=== PATIENT | female | born 1950 | race Two or more races ===

== ENCOUNTER → 2020-07-22 09:21 | Outpatient (BNVA) | payer MEDICARE, SELFPAY | PROVIDERS: Visit Provider Urology | DX: N39.41 Urge incontinence (principal); R35.0 Frequency of micturition; N31.8 Other neuromuscular dysfunction of bladder | CPT/HCPCS: 99214 ==

== ENCOUNTER 2020-08-10 06:22 | Day surgery (SDC) | payer MEDICARE, SELFPAY ==
[2020-07-08 09:47] VITALS: BMI 26.9
--- NOTE | 2020-08-09 14:25 | P.CONAN_ITS ---
Documented by User: Camilla Viveros 08/09/20 14:27 HPI - Anesthesia Eval Consult details Narrative: 70yo for Stage 2 interstim Stage 1 interstim 07/13/20 with NATE OLIVO Past Medical History Medical History Anxiety Arthritis Back pain Depression Diabetes Elevated cholesterol GERD (gastroesophageal reflux disease) HTN (hypertension) Osteoarthritis Peptic ulcer Thyroid disease Surgical History Surgical History H/O cataract extraction H/O colonoscopy H/O cystoscopy H/O excision of mass H/O: hysterectomy History of esophagogastroduodenoscopy (EGD) Hx of tonsillectomy Social History Social History Smoking Status: Never smoker Use of substances other than those prescribed or required for medical reasons: N Advance Directives: No Advance Directives Information Provided: No Advance Directives on File: No Recently lost weight without trying: No Meds Allergies Allergy/AdvReac Type Severity Reaction Status Date / Time No Known Allergies Allergy Verified 07/22/20 09:36 Home Medications Medication Instructions Recorded Confirmed Type atenolol 25 mg PO DAILY 07/08/20 07/08/20 History atorvastatin 40 mg PO BEDTIME 07/08/20 07/08/20 History bupropion HCl 150 mg PO BID 07/08/20 07/08/20 History calcium carbonate-vitamin D3 1 tab PO DAILY 07/08/20 07/08/20 History [Calcium + D] clonazepam 1 mg PO BID 07/08/20 07/08/20 History divalproex [Depakote] 250 mg PO BEDTIME 07/08/20 07/08/20 History enalapril maleate 20 mg PO BID 07/08/20 07/08/20 History famotidine 40 mg PO DAILY 07/08/20 07/08/20 History gabapentin 100 mg PO BEDTIME 07/08/20 07/08/20 History levothyroxine 50 mcg PO DAILY 07/08/20 07/08/20 History metformin 250 mg PO DAILY 07/08/20 07/08/20 History naproxen 1,000 mg PO DAILY PRN 07/08/20 07/08/20 History oxybutynin chloride 5 mg PO DAILY 07/08/20 07/08/20 History alcohol swabs pad TOPICAL BID 07/22/20 History blood sugar diagnostic #10 ea 07/22/20 History calcium carbonate-vitamin D3 600 0 tab PO 07/22/20 History mg (1,500 mg)-800 unit tablet lancets 33 gauge #100 ea 07/22/20 History multivitamin-ferrous 1 tab PO QAM 07/22/20 History fumarate-folic acid 18 mg-400 mcg tablet omeprazole 20 mg capsule,delayed 20 mg PO DAILY 07/22/20 History release peg [id number] 1 1 - 2 drp OPHTHALMIC (EYE) Q6H PRN 07/22/20 History %-0.2 %-0.2 % eye drops Exam Exam Date and Time: August 09, 2020 1425 Height,Weight and Vital Signs: Height 5 ft 3 in Weight 69.1 kg Assessment and Plan Assessment Anesthesia Assessment: Chart Reviewed Documented by User: Sydnie Garcia 08/10/20 08:09 [facility] Past Medical History Medical History Anxiety Arthritis Back pain Depression Diabetes Elevated cholesterol GERD (gastroesophageal reflux disease) HTN (hypertension) Osteoarthritis Peptic ulcer Thyroid disease Surgical History Surgical History H/O cataract extraction H/O colonoscopy H/O cystoscopy H/O excision of mass H/O: hysterectomy History of esophagogastroduodenoscopy (EGD) Hx of tonsillectomy Social History Social History Smoking Status: Never smoker Use of substances other than those prescribed or required for medical reasons: N Advance Directives: No Advance Directives Information Provided: No Advance Directives on File: No Recently lost weight without trying: No Meds Allergies Allergy/AdvReac Type Severity Reaction Status Date / Time No Known Allergies Allergy Verified 07/22/20 09:36 Home Medications Medication Instructions Recorded Confirmed Type atenolol 25 mg PO DAILY 07/08/20 07/08/20 History atorvastatin 40 mg PO BEDTIME 07/08/20 07/08/20 History bupropion HCl 150 mg PO BID 07/08/20 07/08/20 History calcium carbonate-vitamin D3 1 tab PO DAILY 07/08/20 07/08/20 History [Calcium + D] clonazepam 1 mg PO BID 07/08/20 07/08/20 History divalproex [Depakote] 250 mg PO BEDTIME 07/08/20 07/08/20 History enalapril maleate 20 mg PO BID 07/08/20 07/08/20 History famotidine 40 mg PO DAILY 07/08/20 07/08/20 History gabapentin 100 mg PO BEDTIME 07/08/20 07/08/20 History levothyroxine 50 mcg PO DAILY 07/08/20 07/08/20 History metformin 250 mg PO DAILY 07/08/20 07/08/20 History naproxen 1,000 mg PO DAILY PRN 07/08/20 07/08/20 History oxybutynin chloride 5 mg PO DAILY 07/08/20 07/08/20 History alcohol swabs pad TOPICAL BID 07/22/20 History blood sugar diagnostic #10 ea 07/22/20 History calcium carbonate-vitamin D3 600 0 tab PO 07/22/20 History mg (1,500 mg)-800 unit tablet lancets 33 gauge #100 ea 07/22/20 History multivitamin-ferrous 1 tab PO QAM 07/22/20 History fumarate-folic acid 18 mg-400 mcg tablet omeprazole 20 mg capsule,delayed 20 mg PO DAILY 07/22/20 History release peg [id number] 1 1 - 2 drp OPHTHALMIC (EYE) Q6H PRN 07/22/20 History %-0.2 %-0.2 % eye drops Exam Airway Mallampati Class: II TM Dist: >3cm Neck ROM: Limited Assessment and Plan Assessment Anesthesia Assessment: Anesthesia Plan Discussed and Chart Reviewed Final Anesthetic Review NPO: Yes ASA Class: II Final Preanesthetic Review: No Changes in Pt Med Stat, Meds/Allgs Chart Reviewed, Consent Obtained/Reviewed and Anes Risks/Benef Reviewed Patient Risk: Low Procedure Risk: Low Assessment/Block/Sedation in SS: Assess/Block/Sedation-SS Anesthetic Plan Anesthetic Plan: MAC: Disposition: Standard PACU
[2020-08-10 07:32] VITALS: BP 151/68; PULSE 70; RESP 20; TEMP 37.3; O2SAT 98
[2020-08-10 07:33] LABS: Glucose, Whole Blood 113 mg/dL (60-115)
[2020-08-10] MEDS: ceFAZolin Sodium/Dextrose,Iso 2 GM/50 ML PIGGYBACK IV (07:36)
[2020-08-10] MEDS: Lactated Ringers 1,000 ML 100 ML IVCONT (07:37)
--- NOTE | 2020-08-10 08:22 | MHC.SHP ---
Pre-Procedural Eval Section A The patient is an INPATIENT: No Changes since office visit: Yes Patient answered all questions; No Cold of Flu in the past 2 weeks, No New Medical Problems and No Changes in Medication Section B Chief Complaint: URGE INCONTINENCE Relevant Family History (Specify if Yes): No Relevant Social History: None Medical History: No relevant PMH History of Previous Operations: No relevant previous surgery (stage 1 interstim) Allergies: Allergies Allergy/AdvReac Type Severity Reaction Status Date / Time No Known Allergies Allergy Verified 07/22/20 09:36 Review of Systems Sugical H&P ROS: Negative: Constitution, Cardiovascular, Respiratory, Neurological, Psychiatric, Hem-Onc, Allergic/Immunologic, Gastrointestinal, Genitourinary, Musculoskeletal, Integumentary, Endocrine and Eyes/Ears/Nose/Throat Exam Surgical H&P Exam: Normal: HEENT, Normal: Heart, Normal: Lungs, Normal: Extremities, Normal: Abdomen, Normal: Skin and Normal: Neurological Plan Diagnosis/Plan: Unchanged (interstim stage 2) Patient has been examined and remains a candidate for the planned procedure
[2020-08-10 09:00] VITALS: BP 151/78; PULSE 64; RESP 16; TEMP 36.5; O2SAT 99
--- NOTE | 2020-08-10 09:00 | PM.OP ---
Brief Operative Note Date of procedure: 08/10/20 Pre-op diagnosis: urge incontinence Post-op diagnosis: same Procedure: interstim stage 2, rechargeable battery Surgeon: Eleazar Patel III, MD Anesthesia: MAC and local Estimated blood loss (mL): 0 Pathology: none sent Condition: stable Disposition: same day
[2020-08-10 09:05] VITALS: BP 137/72; PULSE 63; RESP 17; O2SAT 98
[2020-08-10 09:15] VITALS: BP 139/75; PULSE 60; RESP 17; TEMP 36.3; O2SAT 99
--- NOTE | 2020-08-10 09:39 | HO.POSTANES ---
Post Anesthesia Evaluation Post Anesthesia Evaluation Vital Signs: Vital Signs Temp Pulse Resp BP Pulse Ox 08/10/20 09:15 97.3 F 60 17 139/75 99 08/10/20 09:05 63 17 137/72 98 08/10/20 09:00 97.7 F 64 16 151/78 H 99 08/10/20 07:32 99.1 F 70 20 151/68 H 98 Anesthesia: Monitored Mental Status: Awake Pain Control: Satisfactory Nausea/Vomiting: None Hydration: Adequate Anesthesia-Related Issues: No Anes. Related Issues
== END 2020-08-10 11:40 | disposition home or self-care (01) ==
PROVIDERS: PCP Nurse Practitioner Family; Visit Provider Urology
PROC: (CPT 64590; principal; 2020-08-10 08:30)
DX: N39.41 Urge incontinence (principal); I10 Essential (primary) hypertension; E11.9 Type 2 diabetes mellitus without complications; E78.00 Pure hypercholesterolemia, unspecified; K21.9 Gastro-esophageal reflux disease without esophagitis; Z79.84 Long term (current) use of oral hypoglycemic drugs; Z79.899 Other long term (current) drug therapy
CPT/HCPCS: 64590; 64581; 82947; C1787; J0690; J2405; J3010; J3370

== ENCOUNTER → 2020-10-21 13:01 | Outpatient (BNVA) | payer MEDICARE, SELFPAY | PROVIDERS: PCP Nurse Practitioner Family; Visit Provider Urology | DX: N39.41 Urge incontinence (principal); R35.0 Frequency of micturition; N31.8 Other neuromuscular dysfunction of bladder | CPT/HCPCS: 99212 ==

== ENCOUNTER 2020-10-22 12:39 | Outpatient (REF) | payer MEDICARE, SELFPAY ==
[2020-10-23 11:31] LABS: BV Int Neg Control Negative (Negative)
[2020-10-23 11:32] LABS: BV Int Pos Control Positive (Positive)
== END 2020-10-22 12:40 | disposition home or self-care (01) ==
LOC: HO.LAB 12:39
PROVIDERS: PCP Nurse Practitioner Family; Visit Provider Advanced Practice Midwife
DX: N93.9 Abnormal uterine and vaginal bleeding, unspecified (principal); N76.0 Acute vaginitis; B96.89 Other specified bacterial agents as the cause of diseases classified elsewhere
CPT/HCPCS: 87480; 87510; 87660; 99202

== ENCOUNTER 2020-11-08 09:58 | Outpatient (REF) | payer MEDICARE, SELFPAY ==
--- NOTE | 2020-11-08 10:02 | US_ITS ---
EXAMINATION: US PELVIS CLINICAL INFORMATION: Abnormal uterine vaginal bleeding COMPARISON: Previous exam April 2019 TECHNIQUE: Ultrasound of the pelvis is performed using both transabdominal and transvaginal transducers along with Doppler. Transvaginal imaging is performed due to inadequate visualization transabdominally. FINDINGS: Transabdominal exam is limited. The uterus is tilted to the right and slightly anteverted and anteflexed. The uterus measures 5.6 x 3 x 5.3 cm in sagittal AP and transverse dimension. There is a 2.8 x 2 x 3.4 cm exophytic or subserosal posterior uterine body fibroid with some calcification. This is slightly to the left of midline. This is increased in size from 2.7 x 2.1 x 2.5 cm on previous exam. The endometrium is difficult to visualize due to the orientation of the uterus. Endometrial the endometrium appears thickened for a postmenopausal patient measuring 1.1 cm. The right ovary is not seen. There is a complex cystic lesion in the right adnexa with calcification. This measures 4.3 x 1.9 x 2.6 cm. The left ovary measures 3.4 x 2.2 x 2.7 cm. There is a 1.4 x 0.9 x 1.4 cm simple appearing left ovarian cyst. There is no fluid in the pelvis. US/US pelvic complete IMPRESSION: Limited transabdominal exam. The uterus is tilted to the right. Abnormally thickened endometrium for a postmenopausal patient measuring 1.1 cm. Tissue sampling recommended. Question complex cystic calcified right adnexal lesion measuring 4.3 x 1.9 x 2.6 cm. 1.4 x 0.9 x 1.4 cm cyst in the left ovary.
== END 2020-11-08 09:59 | disposition home or self-care (01) ==
LOC: HO.US 09:58
PROVIDERS: PCP General Practice; Visit Provider Advanced Practice Midwife
DX: N93.9 Abnormal uterine and vaginal bleeding, unspecified (principal); N76.0 Acute vaginitis; B96.89 Other specified bacterial agents as the cause of diseases classified elsewhere
CPT/HCPCS: 76830; 76856

== ENCOUNTER 2020-11-22 12:40 | Outpatient (REF) | payer MEDICARE, SELFPAY | END 2020-11-22 12:41 | disposition home or self-care (01) | LOC: HO.LAB 12:40 | PROVIDERS: Visit Provider Obstetrics & Gynecology | DX: N95.0 Postmenopausal bleeding (principal); N83.291 Other ovarian cyst, right side; D25.9 Leiomyoma of uterus, unspecified | CPT/HCPCS: 58100; 88305; 99212 ==

== ENCOUNTER → 2020-12-01 12:20 | Outpatient (BNVA) | payer MEDICARE, SELFPAY | PROVIDERS: Visit Provider Obstetrics & Gynecology | CPT/HCPCS: Q3014 ==

== ENCOUNTER 2020-12-06 12:59 | Outpatient (REF) | payer MEDICARE, SELFPAY | END 2020-12-06 13:00 | disposition home or self-care (01) | LOC: HO.LAB 12:59 | PROVIDERS: Visit Provider Obstetrics & Gynecology | DX: N95.0 Postmenopausal bleeding (principal) | CPT/HCPCS: 58100; 88305 ==

== ENCOUNTER → 2020-12-20 12:49 | Outpatient (BNVA) | payer MEDICARE, SELFPAY | PROVIDERS: Visit Provider Obstetrics & Gynecology | DX: Z13.89 Encounter for screening for other disorder (principal) | CPT/HCPCS: Q3014 ==

== ENCOUNTER 2021-01-12 14:22 | Outpatient (REF) | payer MEDICARE, SELFPAY ==
[2021-01-13 19:06] LABS: CA-125 7249 U/mL (<35)
== END 2021-01-12 14:23 | disposition home or self-care (01) ==
LOC: HO.LAB 14:22
PROVIDERS: Visit Provider Obstetrics & Gynecology
DX: N83.291 Other ovarian cyst, right side (principal)
CPT/HCPCS: 36415; 86304

== ENCOUNTER → 2021-01-17 11:25 | Outpatient (BNVA) | payer MEDICARE, SELFPAY | PROVIDERS: Visit Provider Obstetrics & Gynecology | CPT/HCPCS: 99212 ==

== ENCOUNTER 2021-01-20 14:19 | Outpatient (REF) | payer MEDICARE, SELFPAY ==
[2021-01-20 15:26] LABS: Blood Urea Nitrogen 18 mg/dL (9-16)
== END 2021-01-20 14:20 | disposition home or self-care (01) ==
LOC: HO.LAB 14:19
PROVIDERS: PCP Internal Medicine; Visit Provider Obstetrics & Gynecology
DX: N83.291 Other ovarian cyst, right side (principal)
CPT/HCPCS: 36415; 82550; 84520

== ENCOUNTER 2021-01-21 12:30 | Outpatient (REF) | payer MEDICARE, SELFPAY ==
--- NOTE | ~2021-01-21 | CT_ITS ---
EXAMINATION: CT ABDOMEN AND PELVIS WITHOUT CONTRAST CLINICAL INFORMATION: Right ovarian cyst COMPARISON: Previous pelvic ultrasound most recent October 2020 TECHNIQUE: Multidetector volumetric imaging was performed from the superior aspect of the liver through the pubic symphysis. Sagittal and coronal reformatted images were obtained on the technologist's workstation. This CT examination was performed using dose optimization techniques as appropriate, variously including the following: *Automated exposure control *Adjustment of mA and/or kV according to patient size (this includes techniques or standardized protocols for targeted exams where dose is matched to indication/reason for exam; i.e. extremities or head) *Use of iterative reconstruction technique DLP: 523 mGy-cm FINDINGS: LUNG BASES: The visualized lung bases are unremarkable. LIVER, GALLBLADDER, AND BILIARY TREE: The liver is normal in size, shape, and attenuation. No focal hepatic lesion or biliary ductal dilatation is present. The gallbladder is unremarkable with no evidence of radiopaque gallstones, gallbladder wall thickening, or obvious pericholecystic inflammatory changes. PANCREAS: Unremarkable. SPLEEN: Unremarkable. ADRENAL GLANDS: Unremarkable. KIDNEYS AND URETERS: The kidneys are normal in size, shape, and attenuation. No hydronephrosis, hydroureter, or calculi seen. No perinephric stranding. BLADDER: The bladder is not distended and not evaluated. GASTROINTESTINAL TRACT: There is diverticulosis of the colon. The sigmoid colon abuts the pelvic mass and there is not a clear soft tissue plane structures.. There are no dilated loops of bowel to suggest obstruction.. The appendix is unremarkable. ABDOMINAL WALL: No significant hernia is appreciated. LYMPH NODES: Normal. VASCULAR: Unremarkable. PELVIC VISCERA: The uterus is difficult to delineate from the ovaries. There appear to be bilateral partially calcified adnexal masses for example measuring 3.2 x 4.8 cm on the left and 5.8 x 4.6 cm on the right axial image 71 series 3. There are innumerable peritoneal soft tissue masses suggestive of peritoneal carcinomatosis. The largest is just deep to the right abdominal wall muscles and may be in the greater omentum. This measures 2.6 x 1.8 cm axial image 63 series 3. There is a small amount of in the pelvis. OSSEOUS STRUCTURES: There are degenerative changes of the spine. There is a small nonspecific sclerotic lesion in the T10 vertebral body. There are degenerative disc changes at the L2-L3. There is arthritis at both hip joints. There is a right sacral stimulator with lead projecting over the fat just anterior to the right piriformis muscle. CT/CT abdomen pelvis wo con IMPRESSION: Uterus is difficult to delineate from the ovaries. Soft tissue mass in the pelvis, question representing bilateral partially calcified adnexal masses. Innumerable peritoneal soft tissue masses suggestive of peritoneal carcinomatosis. Small amount of ascites. Sigmoid colon abuts the pelvic mass. No evidence of obstruction.
== END 2021-01-21 12:31 | disposition home or self-care (01) ==
LOC: HO.CT 12:30
PROVIDERS: PCP Internal Medicine; Visit Provider Obstetrics & Gynecology
DX: N83.291 Other ovarian cyst, right side (principal)
CPT/HCPCS: 74176

== ENCOUNTER 2021-02-16 10:39 | Outpatient (REF) | payer MEDICARE, SELFPAY ==
[2021-02-16 11:21] LABS: COVID-19 Test Negative (Negative); IDNOW Serial# 55D5AD1C
== END 2021-02-16 10:40 | disposition home or self-care (01) ==
LOC: HO.LAB 10:39
PROVIDERS: Visit Provider Internal Medicine
DX: Z20.822 Contact with and (suspected) exposure to COVID-19 (principal)
CPT/HCPCS: 36415; 87635; C9803

== ENCOUNTER 2021-03-02 09:28 | Outpatient (REF) | payer MEDICARE, SELFPAY ==
[2021-03-02 10:20] LABS: MANUAL DIFF FLAG NO
[2021-03-02 10:39] LABS: Basophils Percent Auto 0.4 % (0-2); Eosinophils Absolute Auto 0.1 X10*3/uL (0.0-0.4); Hematocrit 35.2 % (37-47); Hemoglobin 11.4 g/dl (12.0-16.0); Imm Gran Abs Auto 0.03 X10*3/uL (0.00-0.03); Imm Gran Pct Auto 0.4 % (0.0-0.4); Lymphocytes Absolute Auto 1.3 X10*3/uL (1.2-4.9); Lymphocytes Percent Auto 18.8 % (20-40); Mean Corpuscular HGB Conc 32.4 g/dl (31.0-35.0); Mean Corpuscular Hemoglobin 29.8 pg (27.0-33.0); Mean Corpuscular Volume 91.9 fL (80-98); Mean Platelet Volume 10.3 fL (9.4-12.3); Monocytes Absolute Auto 0.5 X10*3/uL (0.1-1.2); Monocytes Percent Auto 6.7 % (2-11); Neutrophils Absolute Auto 4.9 X10*3/uL (2.0-8.3); Neutrophils Percent Auto 72.7 % (45-73); Platelet Count 339 X10*3/uL (160-400); Red Blood Count 3.83 X10*6/uL (4.20-5.50); Red Cell Distribution Width 12.9 % (11.0-16.0); White Blood Count 6.7 X10*3/uL (4.8-10.8)
[2021-03-02 10:55] LABS: Magnesium 2.3 mg/dL (1.6-2.6)
[2021-03-02 11:09] LABS: HBS Num1 0.31 mIU/mL (0-7.99); HBc Num1 0.06 S/CO (0.00-0.79); Hepatitis B Core Antibody Nonreactive (Nonreactive); ~Hepatitis B Surface Antibody NONREACTIVE (Nonreactive)
[2021-03-02 16:09] LABS: Alanine Aminotransferase 16 U/L (0-31); Albumin Level 4.2 g/dL (3.5-5.0); Alkaline Phosphatase 145 U/L (39-117); Anion Gap 14 (12-20); Aspartate Amino Transferase 18 U/L (5-31); Bilirubin Total 0.5 mg/dL (0.0-1.0); Blood Urea Nitrogen 14 mg/dL (9-16); Carbon Dioxide 27 mmol/L (22-29); Chloride 104 mmol/L (96-108); Estimated Glomerular Filt Rate > 60; Glucose Random 109 mg/dL (60-115); Potassium 4.9 mmol/L (3.3-5.1); Sodium 140 mmol/L (135-145); Total Protein 7.2 g/dL (6.5-8.0)
[2021-03-03 11:07] LABS: CA-125 10855 U/mL (<35)
== END 2021-03-02 09:29 | disposition home or self-care (01) ==
LOC: HO.LAB 09:28
PROVIDERS: Visit Provider Obstetrics & Gynecology Gynecologic Oncology
DX: C54.1 Malignant neoplasm of endometrium (principal)
CPT/HCPCS: 36415; 80053; 83735; 84100; 85025; 86304; 86704; 86706

== ENCOUNTER 2021-03-23 09:20 | Outpatient (REF) | payer MEDICARE, SELFPAY ==
[2021-03-23 10:05] LABS: MANUAL DIFF FLAG NO
[2021-03-23 10:13] LABS: Basophils Percent Auto 0.2 % (0-2); Eosinophils Percent Auto 0.5 % (0-4); Hematocrit 34.6 % (37-47); Hemoglobin 11.2 g/dl (12.0-16.0); Imm Gran Abs Auto 0.03 X10*3/uL (0.00-0.03); Imm Gran Pct Auto 0.5 % (0.0-0.4); Lymphocytes Absolute Auto 1.6 X10*3/uL (1.2-4.9); Lymphocytes Percent Auto 28.3 % (20-40); Mean Corpuscular HGB Conc 32.4 g/dl (31.0-35.0); Mean Corpuscular Hemoglobin 29.7 pg (27.0-33.0); Mean Corpuscular Volume 91.8 fL (80-98); Monocytes Absolute Auto 0.5 X10*3/uL (0.1-1.2); Monocytes Percent Auto 8.6 % (2-11); Neutrophils Absolute Auto 3.5 X10*3/uL (2.0-8.3); Neutrophils Percent Auto 61.9 % (45-73); Platelet Count 230 X10*3/uL (160-400); Red Blood Count 3.77 X10*6/uL (4.20-5.50); Red Cell Distribution Width 14.3 % (11.0-16.0); White Blood Count 5.6 X10*3/uL (4.8-10.8)
[2021-03-23 10:38] LABS: Alanine Aminotransferase 25 U/L (0-31); Albumin Level 4.2 g/dL (3.5-5.0); Alkaline Phosphatase 115 U/L (39-117); Anion Gap 11 (12-20); Aspartate Amino Transferase 20 U/L (5-31); Bilirubin Total 0.2 mg/dL (0.0-1.0); Blood Urea Nitrogen 15 mg/dL (9-16); Calcium 9.8 mg/dL (8.4-10.2); Carbon Dioxide 27 mmol/L (22-29); Chloride 108 mmol/L (96-108); Estimated Glomerular Filt Rate > 60; Glucose Random 109 mg/dL (60-115); Phosphorus 3.7 mg/dL (2.7-4.5); Potassium 4.8 mmol/L (3.3-5.1); Sodium 141 mmol/L (135-145)
[2021-03-24 17:12] LABS: CA-125 9082 U/mL (<35)
== END 2021-03-23 09:21 | disposition home or self-care (01) ==
LOC: HO.LAB 09:20
PROVIDERS: Visit Provider Obstetrics & Gynecology Gynecologic Oncology
DX: C55 Malignant neoplasm of uterus, part unspecified (principal)
CPT/HCPCS: 36415; 80053; 83735; 84100; 85025; 86304

== ENCOUNTER 2021-04-13 07:39 | Outpatient (REF) | payer MEDICARE, SELFPAY ==
[2021-04-13 08:45] LABS: MANUAL DIFF FLAG NO
[2021-04-13 08:50] LABS: Basophils Percent Auto 0.2 % (0-2); Eosinophils Percent Auto 0.7 % (0-4); Hematocrit 32.6 % (37-47); Hemoglobin 10.7 g/dl (12.0-16.0); Imm Gran Abs Auto 0.02 X10*3/uL (0.00-0.03); Imm Gran Pct Auto 0.4 % (0.0-0.4); Lymphocytes Absolute Auto 1.8 X10*3/uL (1.2-4.9); Mean Corpuscular HGB Conc 32.8 g/dl (31.0-35.0); Mean Corpuscular Hemoglobin 30.1 pg (27.0-33.0); Mean Corpuscular Volume 91.8 fL (80-98); Mean Platelet Volume 9.9 fL (9.4-12.3); Monocytes Absolute Auto 0.5 X10*3/uL (0.1-1.2); Monocytes Percent Auto 11.7 % (2-11); Neutrophils Absolute Auto 2.3 X10*3/uL (2.0-8.3); Platelet Count 204 X10*3/uL (160-400); Red Blood Count 3.55 X10*6/uL (4.20-5.50); Red Cell Distribution Width 15.6 % (11.0-16.0); White Blood Count 4.6 X10*3/uL (4.8-10.8)
[2021-04-13 09:21] LABS: Alanine Aminotransferase 12 U/L (0-31); Albumin Level 4.2 g/dL (3.5-5.0); Alkaline Phosphatase 82 U/L (39-117); Anion Gap 12 (12-20); Aspartate Amino Transferase 12 U/L (5-31); Bilirubin Total 0.3 mg/dL (0.0-1.0); Blood Urea Nitrogen 13 mg/dL (9-16); Calcium 9.9 mg/dL (8.4-10.2); Carbon Dioxide 26 mmol/L (22-29); Chloride 109 mmol/L (96-108); Estimated Glomerular Filt Rate > 60; Glucose Random 97 mg/dL (60-115); Magnesium 2.1 mg/dL (1.6-2.6); Phosphorus 4.1 mg/dL (2.7-4.5); Potassium 4.7 mmol/L (3.3-5.1); Sodium 142 mmol/L (135-145); Total Protein 7.1 g/dL (6.5-8.0)
[2021-04-14 06:42] LABS: CA-125 998 U/mL (<35)
== END 2021-04-13 07:40 | disposition home or self-care (01) ==
LOC: HO.LABR 07:39
PROVIDERS: Visit Provider Obstetrics & Gynecology Gynecologic Oncology
DX: C55 Malignant neoplasm of uterus, part unspecified (principal)
CPT/HCPCS: 36415; 80053; 83735; 84100; 85025; 86304

== ENCOUNTER 2021-07-23 12:15 | Inpatient (IN) | payer MEDICARE, SELFPAY ==
--- NOTE | ~2021-07-23 | CT_ITS ---
EXAMINATION: CT ABDOMEN AND PELVIS WITHOUT CONTRAST CLINICAL INFORMATION: Colitis. COMPARISON: 01/21/2021 TECHNIQUE: Multidetector volumetric imaging was performed from the superior aspect of the liver through the pubic symphysis. Sagittal and coronal reformatted images were obtained on the technologist's workstation. This CT examination was performed using dose optimization techniques as appropriate, variously including the following: *Automated exposure control *Adjustment of mA and/or kV according to patient size (this includes techniques or standardized protocols for targeted exams where dose is matched to indication/reason for exam; i.e. extremities or head) *Use of iterative reconstruction technique DLP: 504 mGy-cm FINDINGS: LUNG BASES: The visualized lung bases are unremarkable. LIVER, GALLBLADDER, AND BILIARY TREE: Motion limits evaluation. The liver is normal in size, shape, and attenuation. No focal hepatic lesion or biliary ductal dilatation is present. The gallbladder is unremarkable with no evidence of radiopaque gallstones, gallbladder wall thickening, or obvious pericholecystic inflammatory changes. PANCREAS: Unremarkable. SPLEEN: Unremarkable. ADRENAL GLANDS: Unremarkable. KIDNEYS AND URETERS: The kidneys are normal in size, shape, and attenuation. No hydronephrosis, hydroureter, or calculi seen. No perinephric stranding. BLADDER: Unremarkable. GASTROINTESTINAL TRACT: The stomach is unremarkable. Normal caliber small bowel. No obstruction. There is wall thickening with significant adjacent inflammation involving the descending colon and sigmoid colon. No free air. Small amount of free fluid. ABDOMINAL WALL: No significant hernia is appreciated. LYMPH NODES: Normal. VASCULAR: Unremarkable. PELVIC VISCERA: Uterus is not seen. No adnexal mass. OSSEOUS STRUCTURES: No acute or suspicious osseous abnormality. Degenerative changes of the spine. Mild degenerative change of the left hip. Moderate to severe degenerative change of the right hip. CT/CT abdomen pelvis wo con IMPRESSION: Colitis involving the descending and sigmoid colon. This is of uncertain etiology, favoring infectious or inflammatory.
[2021-07-23 13:53] VITALS: BP 171/81; PULSE 70; RESP 18; TEMP 36.9; O2SAT 99; BMI 28.8
--- NOTE | 2021-07-23 14:08 | ED.GENADULT ---
HPI - General Adult General Chief complaint: General Medical Stated complaint: rectal bleeding Time Seen by Provider: 07/23/21 13:39 Source: patient Mode of arrival: ambulatory Limitations: no limitations History of Present Illness HPI narrative: 71-year-old female who presents emergency department for evaluation of rectal bleeding. 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 She started chemotherapy on 07/14/2021. She states that last night she noted rectal bleeding. She states that the blood is bright red and mainly on the toilet paper but she did notice some blood in the toilet bowl. She states she has a history of hemorrhoids but has not been straining at the stool. Since her surgery she has been on a liquid diet. She states she has had formed stool with no dark black Rytary stool. The patient states that she does have abdominal pain and she states that she has had this pain since her surgery. She points to her epigastric area and to her umbilical area when asked to localize the pain, the pain is a constant dull ache which is 5/10 at its worst. She denied nausea or vomiting. She denied fever or chills. She states that she is feeling weak but she denied lightheadedness or dizziness. Chemical logically oncology note dated 06/23/2021 obtain from [facility]. The patient has serous carcinoma of primary peritoneum, high grade. The patient had 4 cycles of adjuvant therapy and with extensive surgery (total abdominal hysterectomy, bilateral salpingo-oophorectomy, omentectomy, appendectomy, tumor debulking and rigid proctoscopy done on 06/13/[address] Ellis. Note states that the discuss taking Lovenox for 28 days Related Data Home Medications Medication Instructions Recorded Confirmed atenolol 25 mg tablet 25 mg PO DAILY 07/08/20 12/20/20 atorvastatin 40 mg tablet 40 mg PO BEDTIME 07/08/20 12/20/20 bupropion HCl 150 mg tablet,12 hr 150 mg PO BID 07/08/20 12/20/20 sustained-release calcium carbonate 600 mg (1,500 1 tab PO DAILY 07/08/20 12/20/20 mg)-vitamin D3 200 unit tablet clonazepam 1 mg tablet 1 mg PO BID 07/08/20 12/20/20 divalproex 250 mg tablet,delayed 250 mg PO BEDTIME 07/08/20 12/20/20 release (Depakote) enalapril maleate 20 mg tablet 20 mg PO BID 07/08/20 12/20/20 famotidine 40 mg tablet 40 mg PO DAILY 07/08/20 12/20/20 gabapentin 100 mg tablet 100 mg PO BEDTIME 07/08/20 12/20/20 levothyroxine 50 mcg tablet 50 mcg PO DAILY 07/08/20 12/20/20 metformin 500 mg tablet 250 mg PO DAILY 07/08/20 12/20/20 naproxen 500 mg tablet 1,000 mg PO DAILY PRN 07/08/20 12/20/20 oxybutynin chloride 5 mg tablet 5 mg PO DAILY 07/08/20 12/20/20 alcohol swabs pad TOPICAL BID 07/22/20 12/20/20 blood sugar diagnostic #10 ea 07/22/20 12/20/20 calcium carbonate-vitamin D3 600 0 tab PO 07/22/20 12/20/20 mg (1,500 mg)-800 unit tablet lancets 33 gauge #100 ea 07/22/20 12/20/20 multivitamin-ferrous 1 tab PO QAM 07/22/20 12/20/20 fumarate-folic acid 18 mg-400 mcg tablet omeprazole 20 mg capsule,delayed 20 mg PO DAILY 07/22/20 12/20/20 release peg 505-[id number] 1 1 - 2 drp OPHTHALMIC (EYE) Q6H PRN 07/22/20 12/20/20 %-0.2 %-0.2 % eye drops Previous Rx's Medication Instructions Recorded metronidazole 0.75 % vaginal gel 1 appful VAGINAL BID 5 Days #70 g 10/22/20 (Metrogel Vaginal) Allergies Allergy/AdvReac Type Severity Reaction Status Date / Time No Known Allergies Allergy Verified 07/23/21 13:53 Review of Systems Review of Systems: Yes all other systems are reviewed and are negative [facility] Past Medical History [facility] Narrative: Past medical history: Diabetes mellitus, hypertension, hyperlipidemia, hypothyroidism, 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 Past surgical history: Total hysterectomy with tumor debulking 06/13/2021 done at [facility]. Patient has also had spinal surgery and a bladder stimulator. Social history: She denies tobacco and alcohol use. She denies drug use. Medical History Acute hemorrhoid Anxiety Arthritis Back pain Depression Diabetes Elevated cholesterol GERD (gastroesophageal reflux disease) HTN (hypertension) Osteoarthritis Peptic ulcer Thyroid disease Surgical History H/O cataract extraction H/O colonoscopy H/O cystoscopy H/O excision of mass H/O: hysterectomy History of esophagogastroduodenoscopy (EGD) Hx of tonsillectomy Previous back surgery Family History Family History Mother HTN (hypertension) Diabetes Father HTN (hypertension) Sister Diabetes Social History Social History Alcohol intake: never Patient Tobacco Use Status: Never used Tobacco Use of substances other than those prescribed or required for medical reasons: No Advance Directives: No Gender identity: Female Physical Exam Vital Signs: Vital Signs: Last Vital Signs Temp 98.5 F 07/23/21 13:53 Pulse 70 07/23/21 13:53 Resp 18 07/23/21 13:53 BP 171/81 H 07/23/21 13:53 Pulse Ox 99 07/23/21 13:53 Body Mass Index 28.8 Const: General: cooperative and no acute distress Orientation/consciousness: oriented to person and oriented to place Limitations: no limitations HENMT: Head: Yes normal to inspection, Yes normocephalic and Yes atraumatic Ears: external ears normal General nose exam: Normal external nose present Face and sinus: Yes normal facial exam Mouth: Normal oral and palatal mucosa present Throat: Yes posterior oropharynx normal Eyes: General: appearance normal, both eyes and all related structures Pupils: Equal, round and reactive pupils present Neck: Neck: Yes normal visual inspection, Yes no lymphadenopathy, Yes trachea midline and Yes supple Chest: Chest palpation & inspection: normal inspection of the chest and normal palpation of entire chest wall Resp: Effort & Inspection: normal respiratory effort and able to speak in complete sentences Auscultation: clear to auscultation bilaterally Cardio: Rate: regular rate Rhythm: regular rhythm Heart sounds: S1 normal heart sound present, S2 normal heart sound present and no murmurs GI: Inspection: Yes normal to inspection Palpation (GI): Soft to palpation, nontender, no guarding and Other GI palpation findings present (Midline abdominal scar is healed well) Auscultation: normal bowel sounds Rectal Exam - Female: visual inspection normal, normal sphincter tone, No hemorrhoids and other (Red blood per rectum, strongly Hemoccult positive) : General: Yes no CVA tenderness Back/Spine/Pelvis: Back: no CVA tenderness Skin: General skin exam: no rashes or lesions noted Neuro: General: oriented to person and oriented to place Cranial nerves: Yes CN's II-XII intact bilaterally and Yes Equal, round and reactive pupils present Cognition (Neuro): normal cognition Motor exam (neuro): 5/5 motor strength present throughout Extrem: General: Yes normal to inspection Psych: Appearance: grossly normal Speech and movement: Normal speech and movement present Affect: normal affect Attitude: cooperative Thought process: Normal thought process present Thought content: Normal thought content present Course Course Course Narrative: 71-year-old female who presents emergency department for evaluation of bright red blood per rectum which began last night. 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 Patient does report a history of hemorrhoids. Patient's vital signs were stable. Abdominal exam revealed no tenderness. Rectal examination revealed no external hemorrhoids but she does have bright red blood per rectum on digital exam. I will obtain records from [facility] to clarify her cancer diagnosis and her chemotherapy regimen. I did order CBC, CMP, PT/INR, PTT, type and screen. Patient was ordered to get normal saline x1 L. 1736: The patient's laboratory evaluation [place] [address]. Patient was anemic with an H&H of 10.8 and 31. This is compared to an H&H of 10 and 32.6 on 04/13/2021, 11.2 and 34.6 on 03/23/2021 and 11.4 and 35.2 on 03/02/2021. Patient did receive chemotherapy 9 days prior. The patient is also taking Lovenox subQ. The rest of the patient's laboratory evaluation was unremarkable. At this time, concerned that the patient has a lower GI bleed, this could be secondary to hemorrhoids however since she is on Lovenox she is at increased risk of severe bleeding. I will discuss treatment and possible admission with the covering receptionist doctor's office. 1806: I did discuss the patient's presentation with the covering receptionist doctor's office, Dr. Ruano. She agreed that the patient should be kept for observation to follow her H&H especially since the patient is receiving Lovenox. She recommended that the patient's Lovenox be stopped. She states that the patient can eat however she would stop feeding the patient if the patient had increased bleeding. I will discuss the patient's presentation with the covering hospitalist. 2116: The patient's repeat H&H at 6:33 p.m. did reveal a decrease from 10.8/31.4 to 10.0/28.7. I did discuss this with the hospitalist. The patient appears stable and unchanged. Medical Decision Making Lab Data Result diagrams: 07/23/21 18:33 07/23/21 14:52 Labs: Lab Results 07/23/21 07/23/21 07/23/21 Range/Units 14:40 14:40 14:50 WBC 16.1 H (4.8-10.8) X10*3/uL RBC 3.30 L (4.20-5.50) X10*6/uL Hgb 10.8 L (12.0-16.0) g/dl Hct 31.4 L (37-47) % MCV 95.2 (80-98) fL MCH 32.7 (27.0-33.0) pg MCHC 34.4 (31.0-35.0) g/dl RDW 12.7 (11.0-16.0) % Plt Count 208 (160-400) X10*3/uL MPV 10.6 (9.4-12.3) fL Immature Gran % (Auto) 0.4 (0.0-0.4) % Neut % (Auto) 90.5 H (45-73) % Lymph % (Auto) 5.3 L (20-40) % Worth % (Auto) 3.6 (2-11) % Eos % (Auto) 0.1 (0-4) % Baso % (Auto) 0.1 (0-2) % Lymph # (Auto) 0.9 L (1.2-4.9) X10*3/uL Worth # (Auto) 0.6 (0.1-1.2) X10*3/uL Eos # (Auto) 0.0 (0.0-0.4) X10*3/uL Baso # (Auto) 0.0 (0.0-0.2) X10*3/uL Abs Immat Gran (auto) 0.06 H (0.00-0.03) X10*3/uL Absolute Neuts (auto) 14.6 H (2.0-8.3) X10*3/uL Absolute Nucleated RBC 0.000 (0.0-0.012) X10*3/uL Nucleated RBC % (auto) 0.0 (0.0-0.2) /100WBC Smear Tech's Comments VERIFIED PT 12.8 (9.9-13.0) SEC INR 1.1 (0.9-1.1) APTT 25.9 (24.1-38.0) SEC Sodium (135-145) mmol/L Potassium (3.3-5.1) mmol/L Chloride (96-108) mmol/L Carbon Dioxide (22-29) mmol/L Anion Gap (12-20) BUN (9-16) mg/dL Creatinine (0.5-1.4) mg/dL Estim Creat Clear Calc Estimated GFR Random Glucose (60-115) mg/dL Calcium (8.4-10.2) mg/dL Total Bilirubin (0.0-1.0) mg/dL AST (5-31) U/L ALT (0-31) U/L Alkaline Phosphatase (39-117) U/L Total Protein (6.5-8.0) g/dL Albumin (3.5-5.0) g/dL Urine Color Urine Appearance Urine pH (5.0-8.0) Ur Specific Townsend (1.005-1.025) Urine Protein (NEG-TRACE) MG/DL Urine Glucose (UA) (NEG) MG/DL Urine Ketones (NEG) MG/DL Urine Blood (NEG) Urine Nitrite (NEG) Ur Leukocyte Esterase (NEG) Urine RBC (0) /HPF Urine WBC (0-4) /HPF Ur Squamous Epith Cells /LPF Urine Bacteria /LPF Hyaline Casts /LPF Urine Mucus /LPF Stool Occult Blood (NEGATIVE) Blood Type A Positive Antibody Screen NEGATIVE 07/23/21 07/23/21 07/23/21 Range/Units 14:52 15:40 15:40 WBC (4.8-10.8) X10*3/uL RBC (4.20-5.50) X10*6/uL Hgb (12.0-16.0) g/dl Hct (37-47) % MCV (80-98) fL MCH (27.0-33.0) pg MCHC (31.0-35.0) g/dl RDW (11.0-16.0) % Plt Count (160-400) X10*3/uL MPV (9.4-12.3) fL Immature Gran % (Auto) (0.0-0.4) % Neut % (Auto) (45-73) % Lymph % (Auto) (20-40) % Worth % (Auto) (2-11) % Eos % (Auto) (0-4) % Baso % (Auto) (0-2) % Lymph # (Auto) (1.2-4.9) X10*3/uL Worth # (Auto) (0.1-1.2) X10*3/uL Eos # (Auto) (0.0-0.4) X10*3/uL Baso # (Auto) (0.0-0.2) X10*3/uL Abs Immat Gran (auto) (0.00-0.03) X10*3/uL Absolute Neuts (auto) (2.0-8.3) X10*3/uL Absolute Nucleated RBC (0.0-0.012) X10*3/uL Nucleated RBC % (auto) (0.0-0.2) /100WBC Smear Tech's Comments PT (9.9-13.0) SEC INR (0.9-1.1) APTT (24.1-38.0) SEC Sodium 141 (135-145) mmol/L Potassium 4.0 (3.3-5.1) mmol/L Chloride 109 H (96-108) mmol/L Carbon Dioxide 20 L (22-29) mmol/L Anion Gap 16 (12-20) BUN 18 H (9-16) mg/dL Creatinine 0.77 (0.5-1.4) mg/dL Estim Creat Clear Calc 60.5 Estimated GFR > 60 Random Glucose 135 H (60-115) mg/dL Calcium 8.9 D (8.4-10.2) mg/dL Total Bilirubin 0.9 (0.0-1.0) mg/dL AST 12 (5-31) U/L ALT 10 (0-31) U/L Alkaline Phosphatase 64 D (39-117) U/L Total Protein 6.7 (6.5-8.0) g/dL Albumin 4.1 (3.5-5.0) g/dL Urine Color YELLOW Urine Appearance CLEAR Urine pH 6.0 (5.0-8.0) Ur Specific Townsend >= 1.030 H (1.005-1.025) Urine Protein 1+ H (NEG-TRACE) MG/DL Urine Glucose (UA) NEG (NEG) MG/DL Urine Ketones NEG (NEG) MG/DL Urine Blood 1+ H (NEG) Urine Nitrite NEG (NEG) Ur Leukocyte Esterase NEG (NEG) Urine RBC 1-4 (0) /HPF Urine WBC 0-2 (0-4) /HPF Ur Squamous Epith Cells 2+ /LPF Urine Bacteria 1+ /LPF Hyaline Casts 0-2 /LPF Urine Mucus 2+ /LPF Stool Occult Blood POSITIVE (NEGATIVE) Blood Type Antibody Screen 07/23/21 Range/Units 18:33 WBC (4.8-10.8) X10*3/uL RBC (4.20-5.50) X10*6/uL Hgb 10.0 L (12.0-16.0) g/dl Hct 28.7 L (37-47) % MCV (80-98) fL MCH (27.0-33.0) pg MCHC (31.0-35.0) g/dl RDW (11.0-16.0) % Plt Count (160-400) X10*3/uL MPV (9.4-12.3) fL Immature Gran % (Auto) (0.0-0.4) % Neut % (Auto) (45-73) % Lymph % (Auto) (20-40) % Worth % (Auto) (2-11) % Eos % (Auto) (0-4) % Baso % (Auto) (0-2) % Lymph # (Auto) (1.2-4.9) X10*3/uL Worth # (Auto) (0.1-1.2) X10*3/uL Eos # (Auto) (0.0-0.4) X10*3/uL Baso # (Auto) (0.0-0.2) X10*3/uL Abs Immat Gran (auto) (0.00-0.03) X10*3/uL Absolute Neuts (auto) (2.0-8.3) X10*3/uL Absolute Nucleated RBC (0.0-0.012) X10*3/uL Nucleated RBC % (auto) (0.0-0.2) /100WBC Smear Tech's Comments PT (9.9-13.0) SEC INR (0.9-1.1) APTT (24.1-38.0) SEC Sodium (135-145) mmol/L Potassium (3.3-5.1) mmol/L Chloride (96-108) mmol/L Carbon Dioxide (22-29) mmol/L Anion Gap (12-20) BUN (9-16) mg/dL Creatinine (0.5-1.4) mg/dL Estim Creat Clear Calc Estimated GFR Random Glucose (60-115) mg/dL Calcium (8.4-10.2) mg/dL Total Bilirubin (0.0-1.0) mg/dL AST (5-31) U/L ALT (0-31) U/L Alkaline Phosphatase (39-117) U/L Total Protein (6.5-8.0) g/dL Albumin (3.5-5.0) g/dL Urine Color Urine Appearance Urine pH (5.0-8.0) Ur Specific Townsend (1.005-1.025) Urine Protein (NEG-TRACE) MG/DL Urine Glucose (UA) (NEG) MG/DL Urine Ketones (NEG) MG/DL Urine Blood (NEG) Urine Nitrite (NEG) Ur Leukocyte Esterase (NEG) Urine RBC (0) /HPF Urine WBC (0-4) /HPF Ur Squamous Epith Cells /LPF Urine Bacteria /LPF Hyaline Casts /LPF Urine Mucus /LPF Stool Occult Blood (NEGATIVE) Blood Type Antibody Screen Discharge Plan Discharge Clinical Impression: Acute lower gastrointestinal bleeding, Anemia Patient Disposition: Admitted As Inpatient
[2021-07-23] MEDS: 0.9 % Sodium Chloride 1,000 ML 999 ML IV (14:41)
[2021-07-23 14:46] LABS: Basophils Percent Auto 0.1 % (0-2); Eosinophils Percent Auto 0.1 % (0-4); Hematocrit 31.4 % (37-47); Hemoglobin 10.8 g/dl (12.0-16.0); Imm Gran Abs Auto 0.06 X10*3/uL (0.00-0.03); Imm Gran Pct Auto 0.4 % (0.0-0.4); Lymphocytes Absolute Auto 0.9 X10*3/uL (1.2-4.9); Lymphocytes Percent Auto 5.3 % (20-40); MANUAL DIFF FLAG SCAN; Mean Corpuscular HGB Conc 34.4 g/dl (31.0-35.0); Mean Corpuscular Hemoglobin 32.7 pg (27.0-33.0); Mean Corpuscular Volume 95.2 fL (80-98); Mean Platelet Volume 10.6 fL (9.4-12.3); Monocytes Absolute Auto 0.6 X10*3/uL (0.1-1.2); Monocytes Percent Auto 3.6 % (2-11); Neutrophils Absolute Auto 14.6 X10*3/uL (2.0-8.3); Neutrophils Percent Auto 90.5 % (45-73); Platelet Count 208 X10*3/uL (160-400); Red Cell Distribution Width 12.7 % (11.0-16.0); SCAN SMEAR FLAG 1; White Blood Count 16.1 X10*3/uL (4.8-10.8)
--- NOTE | 2021-07-23 14:49 | PC.NURSE ---
iv inserted, labs drawn, rectal exam performed by provider, pt ambulated independently to bathroom- steady gait, urine obtained, ivf running per order, vss, family at bedside, will continue to monitor.
[2021-07-23 14:52] LABS: INTERNATIONAL NORM RATIO 1.1 (0.9-1.1); Prothrombin Time 12.8 SEC (9.9-13.0)
[2021-07-23 14:55] LABS: Partial Thromboplastin Time 25.9 SEC (24.1-38.0)
[2021-07-23 15:03] LABS: SLIDE REVIEW VERIFIED
[2021-07-23 15:11] LABS: Alanine Aminotransferase 10 U/L (0-31); Albumin Level 4.1 g/dL (3.5-5.0); Alkaline Phosphatase 64 U/L (39-117); Anion Gap 16 (12-20); Aspartate Amino Transferase 12 U/L (5-31); Bilirubin Total 0.9 mg/dL (0.0-1.0); Blood Urea Nitrogen 18 mg/dL (9-16); Calcium 8.9 mg/dL (8.4-10.2); Carbon Dioxide 20 mmol/L (22-29); Chloride 109 mmol/L (96-108); Creatinine Clr Calc Pharmacy 60.5; Estimated Glomerular Filt Rate > 60; Glucose Random 135 mg/dL (60-115); Sodium 141 mmol/L (135-145); Total Protein 6.7 g/dL (6.5-8.0)
[2021-07-23 15:49] LABS: OBS Int Ctl Valid YES; OBS1 POSITIVE (NEGATIVE)
[2021-07-23 15:59] LABS: Appearance Urine CLEAR; Color Urine YELLOW; Glucose Urine UA NEG (NEG); Leukocyte Esterase Urine NEG (NEG); Nitrite Urine NEG (NEG); Specific Gravity - Urine >= 1.030 (1.005-1.025); UACC Culture Trigger NO; Urine Blood 1+ (NEG); Urine Ketones NEG (NEG); Urine Protein 1+ MG/DL (NEG-TRACE)
[2021-07-23 16:06] LABS: Mucus Urine 2+ /LPF; Squamous Epithelial Cell Urine 2+ /LPF
[2021-07-23 16:08] LABS: Bacteria Urine 1+ /LPF; Hyaline Casts Urine 0-2 /LPF; WBC Urine 0-2 /HPF (0-4)
[2021-07-23 17:36] VITALS: BP 163/78; PULSE 68; RESP 17; TEMP 36.8; O2SAT 96
--- NOTE | 2021-07-23 17:40 | PC.NURSE ---
patient a&ox3, vss, sister at bedside, no c/o pain or discomfort, will continue to monitor.
[2021-07-23 18:38] LABS: Hematocrit 28.7 % (37-47)
[2021-07-23 19:15] VITALS: BP 148/62; PULSE 66; RESP 18; TEMP 36.9; O2SAT 97
--- NOTE | 2021-07-23 19:15 | PC.NURSE ---
patient a&ox3, sister at bedside, vss, pt ate 100% of dinner, no c/o pain or discomfort at this time, will continue to monitor.
[2021-07-23 21:26] LABS: COVID-19 Test Negative (Negative); IDNOW Serial# 9DD0AD1C
[2021-07-23 21:31] VITALS: BP 142/65; PULSE 65; RESP 16; TEMP 37; O2SAT 98
[2021-07-23 23:16] VITALS: BP 142/71; PULSE 69; RESP 16; TEMP 37.1; O2SAT 97
[2021-07-24] VITALS (8 sets, daily range): BP systolic 136–164; BP diastolic 66–87; PULSE 63–86; RESP 14–18; TEMP 36.1–37.4; O2SAT 97–99
--- NOTE | 2021-07-24 06:55 | P.HPHOSP_ITS ---
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 This occurred on Sunday and has been constant with every bowel movement. She denies having any melena or blood mixed with stool but reports that every time she wipes after a bowel movement she has bleeding. Patient reports slight abdominal pain at the surgical site but otherwise denies any dizziness, no shortness of breath, denies any chest pain, no abdominal pain, no nausea or vomiting. At this time patient denies having any constipation and does not reports straining on BM. She denies having any diarrhea. No lower extremity edema no urinary symptoms. On arrival to the ED patient hemodynamically stable with no significant abnormal vitals Labs are significant for WBC count of 16.1, hemoglobin of 10.8 that dropped to 10 after about 6 hours, hematocrit of 31.4, labs otherwise unremarkable. UA is negative, COVID is negative,. Stool occult blood is positive. Patient is stable and will be admitted for further evaluation Review of Systems Review of Systems: Yes all other systems are reviewed and are negative [facility] Medical History Acute hemorrhoid Anxiety Arthritis Back pain Depression Diabetes Elevated cholesterol GERD (gastroesophageal reflux disease) HTN (hypertension) Osteoarthritis Peptic ulcer Thyroid disease Family History Mother HTN (hypertension) Diabetes Father HTN (hypertension) Sister Diabetes Pertinent family history: No pertinent history Surgical History H/O cataract extraction H/O colonoscopy H/O cystoscopy H/O excision of mass H/O: hysterectomy History of esophagogastroduodenoscopy (EGD) Hx of tonsillectomy Previous back surgery Social History Alcohol intake: never Patient Tobacco Use Status: Never used Tobacco Use of substances other than those prescribed or required for medical reasons: No Advance Directives: No Gender identity: Female Meds Allergies Allergy/AdvReac Type Severity Reaction Status Date / Time No Known Allergies Allergy Verified 07/23/21 13:53 Active Medications: Current Medications Acetaminophen (Acetaminophen 325 Mg Tablet) 650 mg PO Q6H PRN PRN Reason: Pain, Mild (Pain Scale 1-3) Docusate Sodium (Docusate Sodium 100 Mg Capsule) 100 mg PO DAILY PRN PRN Reason: Constipation Magnesium Hydroxide (Milk Of Magnesia 30 Ml Oral.Susp) 30 ml PO DAILY PRN PRN Reason: Constipation Ondansetron HCl (Ondansetron Hcl 4 Mg/2 Ml Vial) 4 mg IVPUSH Q8H PRN PRN Reason: Nausea and Vomiting Sodium Chloride (0.9 % Sodium Chloride Flush 3 Ml Syringe) 3 ml IVFLUSH [facility] Last Admin: 07/24/21 00:35 Dose: Not Given Documented by: Home Medications Medication Instructions Recorded Confirmed Last Taken Type atenolol 25 mg tablet 25 mg PO DAILY 07/08/20 12/20/20 Unknown History atorvastatin 40 mg tablet 40 mg PO BEDTIME 07/08/20 12/20/20 Unknown History bupropion HCl 150 mg tablet,12 hr 150 mg PO BID 07/08/20 12/20/20 Unknown History sustained-release calcium carbonate 600 mg (1,500 1 tab PO DAILY 07/08/20 12/20/20 Unknown History mg)-vitamin D3 200 unit tablet clonazepam 1 mg tablet 1 mg PO BID 07/08/20 12/20/20 Unknown History divalproex 250 mg tablet,delayed 250 mg PO BEDTIME 07/08/20 12/20/20 Unknown History release (Depakote) enalapril maleate 20 mg tablet 20 mg PO BID 07/08/20 12/20/20 Unknown History famotidine 40 mg tablet 40 mg PO DAILY 07/08/20 12/20/20 Unknown History gabapentin 100 mg tablet 100 mg PO BEDTIME 07/08/20 12/20/20 Unknown History levothyroxine 50 mcg tablet 50 mcg PO DAILY 07/08/20 12/20/20 Unknown History metformin 500 mg tablet 250 mg PO DAILY 07/08/20 12/20/20 Unknown History naproxen 500 mg tablet 1,000 mg PO DAILY PRN 07/08/20 12/20/20 Unknown History oxybutynin chloride 5 mg tablet 5 mg PO DAILY 07/08/20 12/20/20 Unknown History alcohol swabs pad TOPICAL BID 07/22/20 12/20/20 Unknown History blood sugar diagnostic #10 ea 07/22/20 12/20/20 Unknown History calcium carbonate-vitamin D3 600 0 tab PO 07/22/20 12/20/20 Unknown History mg (1,500 mg)-800 unit tablet lancets 33 gauge #100 ea 07/22/20 12/20/20 Unknown History multivitamin-ferrous 1 tab PO QAM 07/22/20 12/20/20 Unknown History fumarate-folic acid 18 mg-400 mcg tablet omeprazole 20 mg capsule,delayed 20 mg PO DAILY 07/22/20 12/20/20 Unknown History release peg [id number] 1 1 - 2 drp OPHTHALMIC (EYE) Q6H PRN 07/22/20 12/20/20 Unknown History %-0.2 %-0.2 % eye drops Physical Exam Vital Signs and Narrative: Vital Signs: Last Vital Signs Temp 98.7 F 07/23/21 23:16 Pulse 76 07/24/21 03:24 Resp 14 07/24/21 03:24 BP 142/71 H 07/23/21 23:16 Pulse Ox 97 07/24/21 03:24 Body Mass Index 28.8 Const: General: cooperative and no acute distress Orientation/consciousness: patient oriented x3 Eyes: General: appearance normal, both eyes and all related structures Resp: Effort & Inspection: normal respiratory effort Auscultation: clear to auscultation bilaterally Cardio: Rate: regular rate Rhythm: regular rhythm GI: Other: No abdominal tenderness rebound or guarding, surgical scar well healed with no erythema or evidence of inflammation around the scar Palpation (GI): Soft to palpation Auscultation: normal bowel sounds : Other: External evaluation of rectum revealed no external hemorrhoids Skin: General skin exam: no rashes or lesions noted Neuro: General: patient oriented x3 Cognition (Neuro): normal cognition Extrem: General: Yes normal to inspection and Yes no pedal edema Results Labs CBC and Chem 7: 07/23/21 18:33 07/23/21 14:52 Labs: Laboratory Results - last 24 hr 07/23/21 07/23/2107/23/21 14:40 14:40 14:50 MCV 95.2 MCH 32.7 MCHC 34.4 RDW 12.7 Plt Count 208 MPV 10.6 Immature Gran % (Auto) 0.4 Neut % (Auto) 90.5 H Lymph % (Auto) 5.3 L [place] % (Auto) 3.6 Eos % (Auto) 0.1 Baso % (Auto) 0.1 Lymph # (Auto) 0.9 L [place] # (Auto) 0.6 Eos # (Auto) 0.0 Baso # (Auto) 0.0 Abs Immat Gran (auto) 0.06 H Absolute Neuts (auto) 14.6 H Absolute Nucleated RBC 0.000 Nucleated RBC % (auto) 0.0 Smear Tech's Comments VERIFIED PT 12.8 INR 1.1 APTT 25.9 Anion Gap Estim Creat Clear Calc Estimated GFR Random Glucose Calcium Total Bilirubin AST ALT Alkaline Phosphatase Total Protein Albumin Urine Color Urine Appearance Urine pH Ur Specific [place] Urine Protein Urine Glucose (UA) Urine Ketones Urine Blood Urine Nitrite Ur Leukocyte Esterase Urine RBC Urine WBC Ur Squamous Epith Cells Urine Bacteria Hyaline Casts Urine Mucus Stool Occult Blood COVID-19 (DAVID) COVID-19 Clin Com Blood Type A Positive Antibody Screen NEGATIVE 07/23/21 07/23/21 07/23/21 14:52 15:40 15:40 MCV MCH MCHC RDW Plt Count MPV Immature Gran % (Auto) Neut % (Auto) Lymph % (Auto) [place] % (Auto) Eos % (Auto) Baso % (Auto) Lymph # (Auto) [place] # (Auto) Eos # (Auto) Baso # (Auto) Abs Immat Gran (auto) Absolute Neuts (auto) Absolute Nucleated RBC Nucleated RBC % (auto) Smear Tech's Comments PT INR APTT Anion Gap 16 Estim Creat Clear Calc 60.5 Estimated GFR > 60 Random Glucose 135 H Calcium 8.9 D Total Bilirubin 0.9 AST 12 ALT 10 Alkaline Phosphatase 64 D Total Protein 6.7 Albumin 4.1 Urine Color YELLOW Urine Appearance CLEAR Urine pH 6.0 Ur Specific [place] >= 1.030 H Urine Protein 1+ H Urine Glucose (UA) NEG Urine Ketones NEG Urine Blood 1+ H Urine Nitrite NEG Ur Leukocyte Esterase NEG Urine RBC 1-4 Urine WBC 0-2 Ur Squamous Epith Cells 2+ Urine Bacteria 1+ Hyaline Casts 0-2 Urine Mucus 2+ Stool Occult Blood POSITIVE COVID-19 (DAVID) COVID-19 Clin Com Blood Type Antibody Screen 07/23/21 21:05 MCV MCH MCHC RDW Plt Count MPV Immature Gran % (Auto) Neut % (Auto) Lymph % (Auto) [place] % (Auto) Eos % (Auto) Baso % (Auto) Lymph # (Auto) [place] # (Auto) Eos # (Auto) Baso # (Auto) Abs Immat Gran (auto) Absolute Neuts (auto) Absolute Nucleated RBC Nucleated RBC % (auto) Smear Tech's Comments PT INR APTT Anion Gap Estim Creat Clear Calc Estimated GFR Random Glucose Calcium Total Bilirubin AST ALT Alkaline Phosphatase Total Protein Albumin Urine Color Urine Appearance Urine pH Ur Specific [place] Urine Protein Urine Glucose (UA) Urine Ketones Urine Blood Urine Nitrite Ur Leukocyte Esterase Urine RBC Urine WBC Ur Squamous Epith Cells Urine Bacteria Hyaline Casts Urine Mucus Stool Occult Blood COVID-19 (DAVID) Negative COVID-19 Clin Com See Note Blood Type Antibody Screen Assessment and Plan (1) GI bleeding: Status: Acute 71-year-old female with history of HGB SC of Gyne the origin with recent exploratory laparotomy with multiple surgeries as mentioned in HPI in May, on Lovenox for DVT prophylaxis presents to the hospital with episodes of GI bleed. # lower GI bleed - patient is hemodynamically stable - most likely secondary to internal hemorrhoids versus diverticular bleed - at this time will make patient NPO - consult GI - patient hemodynamically stable and hemoglobin has also remained stable therefore does not require any PRBC transfusion. - transfusion threshold of hemoglobin less than 7 # normocytic anemia - possibly secondary to above - at this time patient hemodynamically stable with no significant drop in hemoglobin or hematocrit - will continue to monitor H&H - threshold for transfusion with hemoglobin less than 7 # hypothyroidism - continue levothyroxine # diabetes - hold oral antihypertensives - will start low-dose sliding seen - diabetic diet once patient able to eat DVT prophylaxis: SCDs in the setting of acute GI bleed Quality Stroke Does the patient have a stroke diagnosis?: No VTE Prior VTE?: No VTE Risk Level:: Medical - moderate - high VTE Device Contraindication: N/A - Device Ordered VTE Drug Contraindication: Treatment Not Tolerated
[2021-07-24 07:02] LABS: MANUAL DIFF FLAG NO
[2021-07-24 07:07] LABS: Basophils Percent Auto 0.1 % (0-2); Hematocrit 30.3 % (37-47); Hemoglobin 10.4 g/dl (12.0-16.0); Imm Gran Abs Auto 0.08 X10*3/uL (0.00-0.03); Imm Gran Pct Auto 0.6 % (0.0-0.4); Lymphocytes Absolute Auto 1.3 X10*3/uL (1.2-4.9); Lymphocytes Percent Auto 10.1 % (20-40); Mean Corpuscular HGB Conc 34.3 g/dl (31.0-35.0); Mean Corpuscular Hemoglobin 32.6 pg (27.0-33.0); Monocytes Absolute Auto 0.3 X10*3/uL (0.1-1.2); Monocytes Percent Auto 2.1 % (2-11); Neutrophils Absolute Auto 11.2 X10*3/uL (2.0-8.3); Neutrophils Percent Auto 87.1 % (45-73); Platelet Count 162 X10*3/uL (160-400); Red Blood Count 3.19 X10*6/uL (4.20-5.50); Red Cell Distribution Width 12.5 % (11.0-16.0); White Blood Count 12.8 X10*3/uL (4.8-10.8)
[2021-07-24 07:17] LABS: Anion Gap 12 (12-20); Blood Urea Nitrogen 14 mg/dL (9-16); Calcium 8.8 mg/dL (8.4-10.2); Carbon Dioxide 23 mmol/L (22-29); Chloride 109 mmol/L (96-108); Creatinine Clr Calc Pharmacy 68.5; Estimated Glomerular Filt Rate > 60; Glucose Random 111 mg/dL (60-115); Potassium 3.9 mmol/L (3.3-5.1); Sodium 140 mmol/L (135-145)
[2021-07-24 07:39] LABS: Glucose, Whole Blood 105 mg/dL (60-115)
[2021-07-24] MEDS: 0.9 % Sodium Chloride Flush 3 ML SYRINGE IVFLUSH ×2 (08:01→15:46)
--- NOTE | 2021-07-24 08:08 | PC.NURSE ---
pt alert and oriented, skin slightly pale, respirations even and unlabored, pt reports defused abd pain 6/10 but denies nausea. pt did report having about 6 bright red blood loose stools overnight. pt is aware of npo statues and plan to admit and consult with GI
[2021-07-24] MEDS: Morphine Sulfate 2 MG/ML CARTRIDGE 1 MG IVPUSH ×2 (10:10→20:10)
[2021-07-24] MEDS: Omeprazole 20 MG CAPSULE.DR PO ×2 (10:11→18:40)
--- NOTE | 2021-07-24 10:51 | HO.PM.IMPN ---
Subjective Subjective Date of Service: 07/24/21 Interval History: gIB Review of Systems No abdominal pain Blood in the stool seems to be improving Denies any nausea or vomiting or chest pain or shortness of breath or fever or chills. Physical Exam Vital Signs: Vital Signs: Last Vital Signs Temp 98.5 F 07/24/21 07:58 Pulse 86 07/24/21 07:58 Resp 18 07/24/21 07:58 BP 136/75 07/24/21 07:58 Pulse Ox 97 07/24/21 07:58 Body Mass Index 28.8 Appearance: Alert.? Oriented X3.? not in distress.? Eyes: Pupils equal, round and reactive to light.? Sclera nonicteric.? cvs: rrr, [id number] , no murmur res: clear to auscultation ,no rhonchii or wheezing abd: no rebound or guarding ,nt, bs present, lower abd scar-clean , no eryhtema or pain. ext pulses present , no cyanosis ,Gait well balanced well coordinated. neuro: axo3 , nonfocal. Objective Data Active Medications Acetaminophen (Acetaminophen 325 Mg Tablet) 650 mg PO Q6H PRN PRN Reason: Pain, Mild (Pain Scale 1-3) Dextrose (Dextrose 50 % 25 Gm/50 Ml Vial) 25 gm IVPUSH Q15M PRN; Protocol PRN Reason: per Hypoglycemia Standing Ord. Docusate Sodium (Docusate Sodium 100 Mg Capsule) 100 mg PO DAILY PRN PRN Reason: Constipation Glucose (Glucose Gel 15 Gm Gel..Gram.) 15 gm PO Q15M PRN; Protocol PRN Reason: per Hypoglycemia Standing Ord. Insulin Human Lispro (Insulin Lispro 100 Unit/Ml 3 Ml Vial) [address] [facility]; Protocol Last Admin: 07/24/21 08:02 Dose: Not Given Documented by: MICHAELA Non-Admin Reason: NPO Magnesium Hydroxide (Milk Of Magnesia 30 Ml Oral.Susp) 30 ml PO DAILY PRN PRN Reason: Constipation Morphine Sulfate (Morphine Sulfate 2 Mg/Ml Cartridge) 1 mg IVPUSH Q4H PRN; Protocol PRN Reason: Pain, Mild (Pain Scale 1-3) Last Admin: 07/24/21 10:10 Dose: 1 mg Documented by: MICHAELA Omeprazole (Omeprazole 20 Mg Capsule.) 20 mg PO BID@0630,1640 [facility] Last Admin: 07/24/21 10:11 Dose: 20 mg Documented by: MICHAELA Ondansetron HCl (Ondansetron Hcl 4 Mg/2 Ml Vial) 4 mg IVPUSH Q8H PRN PRN Reason: Nausea and Vomiting Sodium Chloride (0.9 % Sodium Chloride Flush 3 Ml Syringe) 3 ml IVFLUSH QSHIFT [facility] Last Admin: 07/24/21 08:01 Dose: 3 ml Documented by: MICHAELA Labs CBC & Chem 7: 07/24/21 06:45 07/24/21 06:45 Labs: Laboratory Results - last 24 hr 07/23/21 07/23/21 07/23/21 14:40 14:40 14:50 MCV 95.2 MCH 32.7 MCHC 34.4 RDW 12.7 Plt Count 208 MPV 10.6 Immature Gran % (Auto) 0.4 Neut % (Auto) 90.5 H Lymph % (Auto) 5.3 L [place] % (Auto) 3.6 Eos % (Auto) 0.1 Baso % (Auto) 0.1 Lymph # (Auto) 0.9 L [place] # (Auto) 0.6 Eos # (Auto) 0.0 Baso # (Auto) 0.0 Abs Immat Gran (auto) 0.06 H Absolute Neuts (auto) 14.6 H Absolute Nucleated RBC 0.000 Nucleated RBC % (auto) 0.0 Smear Tech's Comments VERIFIED PT 12.8 INR 1.1 APTT 25.9 Anion Gap Estim Creat Clear Calc Estimated GFR POC Glucose Random Glucose Calcium Total Bilirubin AST ALT Alkaline Phosphatase Total Protein Albumin Urine Color Urine Appearance Urine pH Ur Specific [place] Urine Protein Urine Glucose (UA) Urine Ketones Urine Blood Urine Nitrite Ur Leukocyte Esterase Urine RBC Urine WBC Ur Squamous Epith Cells Urine Bacteria Hyaline Casts Urine Mucus Stool Occult Blood COVID-19 (DAVID) COVID-19 Clin Com Blood Type A Positive Antibody Screen NEGATIVE 07/23/21 07/23/21 07/23/21 14:52 15:40 15:40 MCV MCH MCHC RDW Plt Count MPV Immature Gran % (Auto) Neut % (Auto) Lymph % (Auto) [place] % (Auto) Eos % (Auto) Baso % (Auto) Lymph # (Auto) [place] # (Auto) Eos # (Auto) Baso # (Auto) Abs Immat Gran (auto) Absolute Neuts (auto) Absolute Nucleated RBC Nucleated RBC % (auto) Smear Tech's Comments PT INR APTT Anion Gap 16 Estim Creat Clear Calc 60.5 Estimated GFR > 60 POC Glucose Random Glucose 135 H Calcium 8.9 D Total Bilirubin 0.9 AST 12 ALT 10 Alkaline Phosphatase 64 D Total Protein 6.7 Albumin 4.1 Urine Color YELLOW Urine Appearance CLEAR Urine pH 6.0 Ur Specific [place] >= 1.030 H Urine Protein 1+ H Urine Glucose (UA) NEG Urine Ketones NEG Urine Blood 1+ H Urine Nitrite NEG Ur Leukocyte Esterase NEG Urine RBC 1-4 Urine WBC 0-2 Ur Squamous Epith Cells 2+ Urine Bacteria 1+ Hyaline Casts 0-2 Urine Mucus 2+ Stool Occult Blood POSITIVE COVID-19 (DAVID) COVID-[employer] Com Blood Type Antibody Screen 07/23/21 07/24/21 07/24/21 21:05 06:45 06:45 MCV 95.0 MCH 32.6 MCHC 34.3 RDW 12.5 Plt Count 162 MPV 11.0 Immature Gran % (Auto) 0.6 H Neut % (Auto) 87.1 H Lymph % (Auto) 10.1 L [place] % (Auto) 2.1 Eos % (Auto) 0.0 Baso % (Auto) 0.1 Lymph # (Auto) 1.3 [place] # (Auto) 0.3 Eos # (Auto) 0.0 Baso # (Auto) 0.0 Abs Immat Gran (auto) 0.08 H Absolute Neuts (auto) 11.2 H Absolute Nucleated RBC 0.000 Nucleated RBC % (auto) 0.0 Smear Tech's Comments PT INR APTT Anion Gap 12 Estim Creat Clear Calc 68.5 Estimated GFR > 60 POC Glucose Random Glucose 111 Calcium 8.8 Total Bilirubin AST ALT Alkaline Phosphatase Total Protein Albumin Urine Color Urine Appearance Urine pH Ur Specific [place] Urine Protein Urine Glucose (UA) Urine Ketones Urine Blood Urine Nitrite Ur Leukocyte Esterase Urine RBC Urine WBC Ur Squamous Epith Cells Urine Bacteria Hyaline Casts Urine Mucus Stool Occult Blood COVID-19 (DAVID) Negative COVID-19 [employer] Com See Note Blood Type Antibody Screen 07/24/21 07:35 MCV MCH MCHC RDW Plt Count MPV Immature Gran % (Auto) Neut % (Auto) Lymph % (Auto) [place] % (Auto) Eos % (Auto) Baso % (Auto) Lymph # (Auto) [place] # (Auto) Eos # (Auto) Baso # (Auto) Abs Immat Gran (auto) Absolute Neuts (auto) Absolute Nucleated RBC Nucleated RBC % (auto) Smear Tech's Comments PT INR APTT Anion Gap Estim Creat Clear Calc Estimated GFR POC Glucose 105 Random Glucose Calcium Total Bilirubin AST ALT Alkaline Phosphatase Total Protein Albumin Urine Color Urine Appearance Urine pH Ur Specific [place] Urine Protein Urine Glucose (UA) Urine Ketones Urine Blood Urine Nitrite Ur Leukocyte Esterase Urine RBC Urine WBC Ur Squamous Epith Cells Urine Bacteria Hyaline Casts Urine Mucus Stool Occult Blood COVID-19 (DAVID) COVID-19 Clin Com Blood Type Antibody Screen Assessment and Plan (1) GI bleeding: Status: Acute Assessment and Plan: ? 71-year-old female with history of HGB SC of Gyne the origin with recent exploratory laparotomy with multiple surgeries as mentioned in HPI in May, on Lovenox for DVT prophylaxis presents to the hospital with episodes of GI bleed. 1. lower GI bleed- patient is hemodynamically stable - most likely secondary to internal hemorrhoids versus diverticular bleed Again discussed with the patient in detail it seems like that her urine is clear as per the patient but she has some mucousy stool with blood from couple of days which is concerning for her and that is why she came to the hospital. H&H is done is above 10 range Bleeding is decreasing Monitor CBC Will start the patient on clear liquids. GI evaluation pending, will add omeprazole. 2. Acute blood loss anemia- normocytic anemia possibly secondary to above at this time patient hemodynamically stable with no significant drop in hemoglobin or hematocrit H&H stable as above. threshold for transfusion with hemoglobin less than 7 3. hypothyroidism - continue levothyroxine 4.diabetes - hold oral antihypertensives - will start low-dose sliding seen clear liquid diet 5. htn: continue atenolol, hold lisinopril DVT prophylaxis:? SCDs in the setting of acute GI bleed Quality Stroke Does the patient have a stroke diagnosis?: No VTE Prior VTE?: No VTE Risk Level:: Medical - moderate - high VTE Device Contraindication: N/A - Device Ordered VTE Drug Contraindication: Treatment Not Tolerated
--- NOTE | 2021-07-24 11:05 | PC.NURSE ---
pt is currently asleep respirations even and unlabored
--- NOTE | 2021-07-24 12:27 | PC.NURSE ---
pt is currently awake, denies pain at this time, v stable
--- NOTE | 2021-07-24 12:34 | P.CNGI_ITS ---
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 She started chemotherapy on 07/14/2021.? She states that last night she noted rectal bleeding.? She states that the blood is bright red and mainly on the toilet paper but she did notice some blood in the toilet bowl.? She states she has a history of hemorrhoids but has not been straining at the stool.? Since her surgery she has been on a liquid diet.? She states she has had formed stool with no dark black Rytary stool.? The patient states that she does have abdominal pain and she states that she has had this pain since her surgery.? She points to her epigastric area and to her umbilical area when asked to localize the pain, the pain is a constant dull ache which is 5/10 at its worst.? She denied nausea or vomiting.? She denied fever or chills.? She states that she is feeling weak but she denied lightheadedness or dizziness. Oncology note dated 06/23/2021 obtain from [facility].? The patient has serous carcinoma of primary peritoneum, high grade.? The patient had 4 cycles of adjuvant therapy and with extensive surgery (total abdominal hysterectomy, bilateral salpingo-oophorectomy, omentectomy, appendectomy, tumor debulking and rigid proctoscopy? done on 06/13/[address] Ellis.? Note states that the discuss taking Lovenox for 28 days Pt was on Lovenox which was stopped yesterday. Known family history of colon cancer (dad and 2 siblings) and colon polyps Patient denies smoking or ETOH abuse. On arrival to the ED patient hemodynamically stable with no significant abnormal vitals Labs are significant for WBC count of 16.1, hemoglobin of 10.8 that dropped to 10 after about 6 hours, hematocrit of 31.4, labs otherwise unremarkable.? UA is negative, COVID is negative,.? Stool occult blood was positive. Pt had a small amount of bleeding this am and none since. IMAGING STUDIES: 01/[address] SCAN SHOWED: Uterus is difficult to delineate from the ovaries. Soft tissue mass in the pelvis, question representing bilateral partially calcified adnexal masses. Innumerable peritoneal soft tissue masses suggestive of peritoneal carcinomatosis. Small amount of ascites. Sigmoid colon abuts the pelvic mass. No evidence of obstruction. ENDOSCOPIC STUDIES: 08/2018 Colonoscopy was performed by Dr Jackson: Normal except occasional diverticulosis. 02/2013 Colonoscopy was performed by Dr Jackson: Normal colonoscopy till hepatic flexure - unable to advance further due to excessive looping of the colonoscope. Repeat colonoscipy was advised in 5 yrs. 10/[address] Pichardo showed hemorrhagic gastritis Review of Systems Constitutional: Constitutional: Reports fatigue, Denies fever(s), Denies headache(s) and Denies weight loss Eyes: Eyes: Denies eye discharge and Denies irritation ENT: Reports Normal hearing present, Denies dysphagia, Denies dizziness and Denies headache(s) Cardiovascular: Cardiovascular: Denies chest pain, Denies leg edema and Denies dyspnea on exertion Respiratory: Respiratory: Denies cough, Denies dyspnea on exertion and Denies wheezing Gastrointestinal: Gastrointestinal: Reports abdominal pain, Reports hematochezia, Denies change in bowel habits, Denies dysphagia, Denies heartburn and Reports diarrhea Genitourinary: Genitourinary: Denies difficulty voiding and Denies dysuria Musculoskeletal: Musculoskeletal: Denies back pain and Denies arthralgias Integumentary/Breasts: Skin/Breast: Denies pruritus, Denies rash and Denies jaundice Neurologic: Reports Normal hearing present, Denies Abnormal speech present, Denies dizziness, Denies headache(s) and Denies seizure-like activity Psychiatric: Psychiatric: Denies anxiety, Denies depression and Denies panic attacks Endocrine: Endocrine: Denies cold intolerance, Reports fatigue, Denies flushing and Denies heat intolerance Hematologic/Lymphatic: Hematologic/Lymphatic: Denies easy bleeding and Denies easy bruising Allergic/Immunologic: Allergic/Immunologic: Denies wheezing PMFSH Past Medical History Medical History Acute hemorrhoid Anxiety Arthritis Back pain Depression Diabetes Elevated cholesterol GERD (gastroesophageal reflux disease) HTN (hypertension) Osteoarthritis Peptic ulcer Thyroid disease Family History Family History Mother HTN (hypertension) Diabetes Father HTN (hypertension) Sister Diabetes Surgical History Surgical History H/O cataract extraction H/O colonoscopy H/O cystoscopy H/O excision of mass H/O: hysterectomy History of esophagogastroduodenoscopy (EGD) Hx of tonsillectomy Previous back surgery Social History Social History Household Members: None Housing: Apartment Do you presently have visiting nurse or other home services: Yes (DAYLIN BAXTER) Alcohol intake: never Patient Tobacco Use Status: Never used Tobacco service: No Current occupational status: disabled Gender identity: Female Meds Allergies Allergy/AdvReac Type Severity Reaction Status Date / Time No Known Allergies Allergy Verified 07/23/21 13:53 Active Medications: Current Medications Acetaminophen (Acetaminophen 325 Mg Tablet) 650 mg PO Q6H PRN PRN Reason: Pain, Mild (Pain Scale 1-3) Atenolol (Atenolol 25 Mg Tablet) 25 mg PO BEDTIME YAA; Protocol Dextrose (Dextrose 50 % 25 Gm/50 Ml Vial) 25 gm IVPUSH Q15M PRN; Protocol PRN Reason: per Hypoglycemia Standing Ord. Docusate Sodium (Docusate Sodium 100 Mg Capsule) 100 mg PO DAILY PRN PRN Reason: Constipation Glucose (Glucose Gel 15 Gm Gel..Gram.) 15 gm PO Q15M PRN; Protocol PRN Reason: per Hypoglycemia Standing Ord. Insulin Human Lispro (Insulin Lispro 100 Unit/Ml 3 Ml Vial) 0 unit SUBCUT QIDA [facility]; Protocol Last Admin: 07/24/21 12:29 Dose: Not Given Documented by: Magnesium Hydroxide (Milk Of Magnesia 30 Ml Oral.Susp) 30 ml PO DAILY PRN PRN Reason: Constipation Morphine Sulfate (Morphine Sulfate 2 Mg/Ml Cartridge) 1 mg IVPUSH Q4H PRN; Protocol PRN Reason: Pain, Mild (Pain Scale 1-3) Last Admin: 07/24/21 10:10 Dose: 1 mg Documented by: Omeprazole (Omeprazole 20 Mg Capsule.) 20 mg PO BID@0630,1630 [facility] Last Admin: 07/24/21 10:11 Dose: 20 mg Documented by: Ondansetron HCl (Ondansetron Hcl 4 Mg/2 Ml Vial) 4 mg IVPUSH Q8H PRN PRN Reason: Nausea and Vomiting Sodium Chloride (0.9 % Sodium Chloride Flush 3 Ml Syringe) 3 ml IVFLUSH QSHIFT [facility] Last Admin: 07/24/21 08:01 Dose: 3 ml Documented by: Home Medications Medication Instructions Recorded Confirmed Last Taken Type atenolol 25 mg tablet 25 mg PO BEDTIME 07/08/20 07/24/21 Unknown History atorvastatin 40 mg tablet 40 mg PO BEDTIME 07/08/20 07/24/21 Unknown History clonazepam 1 mg tablet 1 mg PO BEDTIME 07/08/20 07/24/21 Unknown History enalapril maleate 20 mg tablet 20 mg PO DAILY 07/08/20 07/24/21 Unknown History levothyroxine 50 mcg tablet 50 mcg PO DAILY 07/08/20 07/24/21 Unknown History metformin 500 mg tablet 250 mg PO DAILY 07/08/20 07/24/21 Unknown History alcohol swabs pad TOPICAL BID 07/22/20 12/20/20 Unknown History blood sugar diagnostic #10 ea 07/22/20 12/20/20 Unknown History calcium carbonate 600 mg-vitamin 1 tab PO BID 07/22/20 07/24/21 Unknown History D3 20 mcg (800 unit) tablet lancets 33 gauge #100 ea 07/22/20 12/20/20 Unknown History omeprazole 20 mg capsule,delayed 20 mg PO DAILY 07/22/20 07/24/21 Unknown History release aripiprazole 2 mg tablet 1 tab PO BEDTIME 07/24/21 07/24/21 Unknown History multivitamin-ferrous 1 tab PO QAM 07/24/21 07/24/21 Unknown History fumarate-folic acid 18 mg-400 mcg tablet (Certavite-Antioxidant) Physical Exam Vital Signs: Vital Signs: Last Vital Signs Temp 98.5 F 07/24/21 07:58 Pulse 71 07/24/21 12:26 Resp 18 07/24/21 12:26 BP 137/66 07/24/21 12:26 Pulse Ox 97 07/24/21 12:26 Body Mass Index 28.8 Const: General: no acute distress and ill appearing Nutritional Appearance: overweight Orientation/consciousness: patient oriented x3 Limitations: no limitations HENMT: Head: Yes normal to inspection Ears: hearing grossly normal bilaterally Mouth: Normal oral and palatal mucosa present Eyes: Sclerae: sclerae normal Pupils: Equal, round and reactive pupils present Neck: Neck: Yes normal visual inspection Chest: Chest palpation & inspection: normal inspection of the chest Resp: Effort & Inspection: normal respiratory effort Auscultation: clear to auscultation bilaterally Cardio: Palpation: normal PMI Rate: regular rate Rhythm: regular rhythm Heart sounds: S1 normal heart sound present, S2 normal heart sound present and no murmurs GI: Inspection: Yes scar (lower mid line scar of recent surgery) Palpation (GI): Soft to palpation, nontender and No hepatosplenomegaly present Au scultation: normal bowel sounds Rectal Exam - Female: deferred Skin: General skin exam: no rashes or lesions noted Neuro: General: patient oriented x3, gait normal and moves all extremities Cranial nerves: Yes Equal, round and reactive pupils present and Yes Normal hearing present Speech: No Abnormal speech present Psych: Appearance: grossly normal Mental Status: mental status grossly normal Results Labs CBC & Chem 7: 07/26/21 05:21 07/26/21 05:21 Labs: Short CBC 07/23/21 07/23/21 07/24/21 Range/Units 14:40 18:33 06:45 WBC 16.1 H 12.8 H (4.8-10.8) X10*3/uL Hgb 10.8 L 10.0 L 10.4 L (12.0-16.0) g/dl Hct 31.4 L 28.7 L 30.3 L (37-47) % Plt Count 208 162 (160-400) X10*3/uL BMP 07/23/21 07/24/21 14:52 06:45 Sodium 141 140 Potassium 4.0 3.9 Chloride 109 H 109 H Carbon Dioxide 20 L 23 BUN 18 H 14 Creatinine 0.77 0.68 Calcium 8.9 D 8.8 Liver Function 07/23/21 Range/Units 14:52 Total Bilirubin 0.9 (0.0-1.0) mg/dL AST 12 (5-31) U/L ALT 10 (0-31) U/L Alkaline Phosphatase 64 D (39-117) U/L Albumin 4.1 (3.5-5.0) g/dL Urine 07/23/21 Range/Units 15:40 Urine Color YELLOW Urine Appearance CLEAR Urine pH 6.0 (5.0-8.0) Ur Specific [place] >= 1.030 H (1.005-1.025) Urine Protein 1+ H (NEG-TRACE) MG/DL Urine Glucose (UA) NEG (NEG) MG/DL Assessment and Plan (1) GI bleeding: Status: Deleted (2) Anemia: Status: Acute 71-year-old female with 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 Lovenox was held. Bleeding can be from hemorrhoids, ischemic colitis or metastatic disease. She has had 2 negative colonoscopy (only showed diverticulosis) over the past 8 yrs. RECOMMENDATIONS: Proceed with flexible sigmoidoscopy with MAC today. Sigmoidoscopy procedure and potential complications bleeding, perforation, reaction to anesthetics and missed diagnosis were reviewed with patient and his of a acetone button paster. Procedures Date of Service Date of Service: 07/24/21
[2021-07-24 12:35] LABS: Glucose, Whole Blood 109 mg/dL (60-115)
--- NOTE | 2021-07-24 13:51 | PC.NURSE ---
sergeant at beside, fleet enema give pt tolerated the procedure well
[2021-07-24] MEDS: Sodium Phosphate,Mono-Dibasic 133 ML ENEMA PR (13:52)
--- NOTE | 2021-07-24 13:57 | PC.NURSE ---
report given to surgery rn
--- NOTE | 2021-07-24 14:40 | PM.OP ---
Brief Operative Note Date of Service: 07/24/21 Pre-op diagnosis: rectal bleeding Post-op diagnosis: other (Diverticulosis, sigmoid colitis - likely due to ischemia) Procedure: FLEXIBLE SIGMOIDOSCOPY TILL 45 CMS WITH BIOPSIES Consent: Indications for the procedure and potential complications of bleeding, perforation, reaction to medications and missed diagnosis were discussed with the patient and informed consent was obtained. Instrument: Olympus PCF H 190 L variable stiffness pediatric colonoscope Monitoring: Vital signs and clinical assessment, intermittent blood pressure monitoring, continuous EKG monitoring, Pulse oximetry and Carbon Dioxide monitoring were done throughout the procedure. Procedure: The patient was placed in the left lateral decubitis position and pre-procedure medications were administered. After a digital rectal examination of the ano-rectum, the video colonoscope was inserted into the rectum and advanced through the colon to the cecum. The colonoscope was slowly withdrawn in a retrograde panoramic fashion and the colon mucosa was carefully examined including a retroflexed view of the rectum. Findings and interventions are described below. Procedure Difficulty: Without difficulty Findings: Sigmoid Colon: Edema, erythema with submucosal hemorrhages and ulcerations with luminal narrowing starting at 40 cms and extending proximally - biopsies obtained to check for ischemis colitis. Colonoscope was not advanced further due to friable colon with luminal narrowing. Severe diverticulosis with luminal narrowing Rectum: Normal Ano-rectum: Normal - no hemorrhoids noted Colon preparation: Good Impression and Post Procedure Diagnosis: Colonoscopy Findings: Edema, erythema with submucosal hemorrhages and ulcerations with luminal narrowing starting at 40 cms and extending proximally - biopsies obtained to check for ischemic colitis. Severe diverticulosis seen in the sigmoid colon Rectal bleeding from sigmoid colitis - likely due to ischemia due to dehydration versus chemotherapy (pt reports [place] [facility] [place] Plan: Clear liquid diet and advance diet as tolerated. IV antibiotics. Abd CT scan with PO contrast to define extent of colitis. Await pathology results Pt to FU with Oncology at [facility]. Colonoscopy in 5 yrs if she remains in stable health. Above findings were reviewed with the patient. Surgeon: Janak Ruano MD Anesthesia: MAC (Dr Rizo) Was an Publications Sales Representative used for this Procedure?: No Publications Sales Representative: Adore Bernard Estimated blood loss (mL): 0 Pathology: other (a: sigmoid colon bxs r/o ischemic colitis) Condition: stable Disposition: PACU
--- NOTE | 2021-07-24 14:41 | HO.ANESPROP2 ---
[facility] Active Problems Active Problems: All Active Problems (Updated 07/24/21 @ 06:59 by Rosalie Tipton MD) GI bleeding (Acute) Urge incontinence (Acute) Urgency of micturition (Acute) Frequency of micturition (Acute) Bladder hypertonicity (Acute) Bacterial vaginosis (Acute) Vaginal spotting (Acute) Postmenopausal bleeding (Acute) Myoma (Acute) Complex cyst of right ovary (Acute) Endometrial polyp (Acute) Acute lower gastrointestinal bleeding (Acute) Anemia (Acute) Past Medical History Medical History Acute hemorrhoid Anxiety Arthritis Back pain Depression Diabetes Elevated cholesterol GERD (gastroesophageal reflux disease) HTN (hypertension) Osteoarthritis Peptic ulcer Thyroid disease Family History Family History Mother HTN (hypertension) Diabetes Father HTN (hypertension) Sister Diabetes Surgical History Surgical History H/O cataract extraction H/O colonoscopy H/O cystoscopy H/O excision of mass H/O: hysterectomy History of esophagogastroduodenoscopy (EGD) Hx of tonsillectomy Previous back surgery Social History Social History Alcohol intake: never Patient Tobacco Use Status: Never used Tobacco Gender identity: Female Meds Allergies Allergy/AdvReac Type Severity Reaction Status Date / Time No Known Allergies Allergy Verified 07/23/21 13:53 Active Medications: Current Medications Acetaminophen (Acetaminophen 325 Mg Tablet) 650 mg PO Q6H PRN PRN Reason: Pain, Mild (Pain Scale 1-3) Atenolol (Atenolol 25 Mg Tablet) 25 mg PO BEDTIME YAA; Protocol Dextrose (Dextrose 50 % 25 Gm/50 Ml Vial) 25 gm IVPUSH Q15M PRN; Protocol PRN Reason: per Hypoglycemia Standing Ord. Docusate Sodium (Docusate Sodium 100 Mg Capsule) 100 mg PO DAILY PRN PRN Reason: Constipation Glucose (Glucose Gel 15 Gm Gel..Gram.) 15 gm PO Q15M PRN; Protocol PRN Reason: per Hypoglycemia Standing Ord. Lactated Ringer's (Lr) 1,000 mls @ 100 mls/hr IVCONT .Q10H YAA Insulin Human Lispro (Insulin Lispro 100 Unit/Ml 3 Ml Vial) 0 unit [facility]BCUT [facility]; Protocol Last Admin: 07/24/21 12:29 Dose: Not Given Documented by: Magnesium Hydroxide (Milk Of Magnesia 30 Ml Oral.Susp) 30 ml PO DAILY PRN PRN Reason: Constipation Morphine Sulfate (Morphine Sulfate 2 Mg/Ml Cartridge) 1 mg IVPUSH Q4H PRN; Protocol PRN Reason: Pain, Mild (Pain Scale 1-3) Last Admin: 07/24/21 10:10 Dose: 1 mg Documented by: Omeprazole (Omeprazole 20 Mg Capsule.) 20 mg PO BID@0630,1630 [facility] Last Admin: 07/24/21 10:11 Dose: 20 mg Documented by: Ondansetron HCl (Ondansetron Hcl 4 Mg/2 Ml Vial) 4 mg IVPUSH Q8H PRN PRN Reason: Nausea and Vomiting Sodium Biphosphate/Sodium Phosphate (Sodium Phosphate,[place]-Dibasic 133 Ml Enema) 133 ml GA ONCE PRN PRN Reason: Pre-Op Surgical Prep Last Admin: 07/24/21 13:52 Dose: 133 ml Documented by: Sodium Chloride (0.9 % Sodium Chloride Flush 3 Ml Syringe) 3 ml IVFLUSH [facility] Last Admin: 07/24/21 08:01 Dose: 3 ml Documented by: Home Medications Medication Instructions Recorded Confirmed Last Taken Type atenolol 25 mg tablet 25 mg PO BEDTIME 07/08/20 07/24/21 Unknown History atorvastatin 40 mg tablet 40 mg PO BEDTIME 07/08/20 07/24/21 Unknown History clonazepam 1 mg tablet 1 mg PO BEDTIME 07/08/20 07/24/21 Unknown History enalapril maleate 20 mg tablet 20 mg PO DAILY 07/08/20 07/24/21 Unknown History levothyroxine 50 mcg tablet 50 mcg PO DAILY 07/08/20 07/24/21 Unknown History metformin 500 mg tablet 250 mg PO DAILY 07/08/20 07/24/21 Unknown History alcohol swabs pad TOPICAL BID 07/22/20 12/20/20 Unknown History blood sugar diagnostic #10 ea 07/22/20 12/20/20 Unknown History calcium carbonate-vitamin D3 600 1 tab PO BID 07/22/20 07/24/21 Unknown History mg (1,500 mg)-800 unit tablet lancets 33 gauge #100 ea 07/22/20 12/20/20 Unknown History omeprazole 20 mg capsule,delayed 20 mg PO DAILY 07/22/20 07/24/21 Unknown History release aripiprazole 2 mg tablet 1 tab PO BEDTIME 07/24/21 07/24/21 Unknown History multivitamin-ferrous 1 tab PO QAM 07/24/21 07/24/21 Unknown History fumarate-folic acid 18 mg-400 mcg tablet (Certavite-Antioxidant) Exam Exam Date and Time: July 24, 2021 1441 Height,Weight and Vital Signs: Height 5 ft 1 in Weight 69.3 kg Last Vital Signs Temp 98.5 F 07/24/21 07:58 Pulse 71 07/24/21 12:26 Resp 18 07/24/21 12:26 BP 137/66 07/24/21 12:26 Pulse Ox 97 07/24/21 12:26 Pertinent Lab Results Pertinent Lab Results: Laboratory Tests 07/23/21 07/23/21 07/23/21 14:40 14:40 14:50 WBC 16.1 H RBC 3.30 L Hgb 10.8 L Hct 31.4 L MCV 95.2 MCH 32.7 MCHC 34.4 RDW 12.7 Plt Count 208 MPV 10.6 Immature Gran % (Auto) 0.4 Neut % (Auto) 90.5 H Lymph % (Auto) 5.3 L [place] % (Auto) 3.6 Eos % (Auto) 0.1 Baso % (Auto) 0.1 Lymph # (Auto) 0.9 L [place] # (Auto) 0.6 Eos # (Auto) 0.0 Baso # (Auto) 0.0 Abs Immat Gran (auto) 0.06 H Absolute Neuts (auto) 14.6 H Absolute Nucleated RBC 0.000 Nucleated RBC % (auto) 0.0 Smear Tech's Comments VERIFIED PT 12.8 INR 1.1 APTT 25.9 Sodium Potassium Chloride Carbon Dioxide Anion Gap BUN Creatinine Estim Creat Clear Calc Estimated GFR POC Glucose Random Glucose Calcium Total Bilirubin AST ALT Alkaline Phosphatase Total Protein Albumin Urine Color Urine Appearance Urine pH Ur Specific [place] Urine Protein Urine Glucose (UA) Urine Ketones Urine Blood Urine Nitrite Ur Leukocyte Esterase Urine RBC Urine WBC Ur Squamous Epith Cells Urine Bacteria Hyaline Casts Urine Mucus Stool Occult Blood COVID-19 ([facility]) COVID-19 Clin Com Blood Type A Positive Antibody Screen NEGATIVE 07/23/21 07/23/21 07/23/21 14:52 15:40 15:40 WBC RBC Hgb Hct MCV MCH MCHC RDW Plt Count MPV Immature Gran % (Auto) Neut % (Auto) Lymph % (Auto) [place] % (Auto) Eos % (Auto) Baso % (Auto) Lymph # (Auto) [place] # (Auto) Eos # (Auto) Baso # (Auto) Abs Immat Gran (auto) Absolute Neuts (auto) Absolute Nucleated RBC Nucleated RBC % (auto) Smear Tech's Comments PT INR APTT Sodium 141 Potassium 4.0 Chloride 109 H Carbon Dioxide 20 L Anion Gap 16 BUN 18 H Creatinine 0.77 Estim Creat Clear Calc 60.5 Estimated GFR > 60 POC Glucose Random Glucose 135 H Calcium 8.9 D Total Bilirubin 0.9 AST 12 ALT 10 Alkaline Phosphatase 64 D Total Protein 6.7 Albumin 4.1 Urine Color YELLOW Urine Appearance CLEAR Urine pH 6.0 Ur Specific [place] >= 1.030 H Urine Protein 1+ H Urine Glucose (UA) NEG Urine Ketones NEG Urine Blood 1+ H Urine Nitrite NEG Ur Leukocyte Esterase NEG Urine RBC 1-4 Urine WBC 0-2 Ur Squamous Epith Cells 2+ Urine Bacteria 1+ Hyaline Casts 0-2 Urine Mucus 2+ Stool Occult Blood POSITIVE COVID-19 ([facility]) COVID-19 Clin Com Blood Type Antibody Screen 07/23/21 07/23/21 07/24/21 18:33 21:05 06:45 WBC 12.8 H RBC 3.19 L Hgb 10.0 L 10.4 L Hct 28.7 L 30.3 L MCV 95.0 MCH 32.6 MCHC 34.3 RDW 12.5 Plt Count 162 MPV 11.0 Immature Gran % (Auto) 0.6 H Neut % (Auto) 87.1 H Lymph % (Auto) 10.1 L [place] % (Auto) 2.1 Eos % (Auto) 0.0 Baso % (Auto) 0.1 Lymph # (Auto) 1.3 [place] # (Auto) 0.3 Eos # (Auto) 0.0 Baso # (Auto) 0.0 Abs Immat Gran (auto) 0.08 H Absolute Neuts (auto) 11.2 H Absolute Nucleated RBC 0.000 Nucleated RBC % (auto) 0.0 Smear Tech's Comments PT INR APTT Sodium Potassium Chloride Carbon Dioxide Anion Gap BUN Creatinine Estim Creat Clear Calc Estimated GFR POC Glucose Random Glucose Calcium Total Bilirubin AST ALT Alkaline Phosphatase Total Protein Albumin Urine Color Urine Appearance Urine pH Ur Specific [place] Urine Protein Urine Glucose (UA) Urine Ketones Urine Blood Urine Nitrite Ur Leukocyte Esterase Urine RBC Urine WBC Ur Squamous Epith Cells Urine Bacteria Hyaline Casts Urine Mucus Stool Occult Blood COVID-19 ([facility]VID) Negative COVID-19 Clin Com See Note Blood Type Antibody Screen 07/24/21 07/24/21 07/24/21 06:45 07:35 12:25 WBC RBC Hgb Hct MCV MCH MCHC RDW Plt Count MPV Immature Gran % (Auto) Neut % (Auto) Lymph % (Auto) [place] % (Auto) Eos % (Auto) Baso % (Auto) Lymph # (Auto) [place] # (Auto) Eos # (Auto) Baso # (Auto) Abs Immat Gran (auto) Absolute Neuts (auto) Absolute Nucleated RBC Nucleated RBC % (auto) Smear Tech's Comments PT INR APTT Sodium 140 Potassium 3.9 Chloride 109 H Carbon Dioxide 23 Anion Gap 12 BUN 14 Creatinine 0.68 Estim Creat Clear Calc 68.5 Estimated GFR > 60 POC Glucose 105 109 Random Glucose 111 Calcium 8.8 Total Bilirubin AST ALT Alkaline Phosphatase Total Protein Albumin Urine Color Urine Appearance Urine pH Ur Specific [place] Urine Protein Urine Glucose (UA) Urine Ketones Urine Blood Urine Nitrite Ur Leukocyte Esterase Urine RBC Urine WBC Ur Squamous Epith Cells Urine Bacteria Hyaline Casts Urine Mucus Stool Occult Blood COVID-19 ([facility]ID) COVID-19 Clin Com Blood Type Antibody Screen Airway Mallampati Class: II TM Dist: >3cm Denture: Upper
--- NOTE | 2021-07-24 14:47 | W.PM.OPN ---
Operative Note Operative Note Date of Service: 07/24/21 Narrative: Pre-op diagnosis:?rectal bleeding Post-op diagnosis:?other (Diverticulosis, sigmoid colitis - likely due to ischemia) Procedure:? FLEXIBLE SIGMOIDOSCOPY TILL 45 CMS WITH BIOPSIES Consent: Indications for the procedure and potential complications of bleeding, perforation, reaction to medications and missed diagnosis were discussed with the patient and informed consent was obtained. Instrument: Olympus PCF H 190 L variable stiffness pediatric colonoscope Monitoring: Vital signs and clinical assessment, intermittent blood pressure monitoring, continuous EKG monitoring, Pulse oximetry and Carbon Dioxide monitoring were done throughout the procedure. Procedure: The patient was placed in the left lateral decubitis position and pre-procedure medications were administered. After a digital rectal examination of the ano-rectum, the video colonoscope was inserted into the rectum and advanced through the colon to the cecum. The colonoscope was slowly withdrawn in a retrograde panoramic fashion and the colon mucosa was carefully examined including a retroflexed view of the rectum. Findings and interventions are described below. Procedure Difficulty: Without difficulty Findings: Sigmoid Colon:? Edema, erythema with submucosal hemorrhages and ulcerations with luminal narrowing starting at 40 cms and extending proximally - biopsies obtained to check for ischemis colitis. Severe diverticulosis with luminal narrowing Rectum:? Normal Ano-rectum:? Normal - no hemorrhoids noted Colon preparation:? Good? Impression and Post Procedure Diagnosis: Colonoscopy Findings: Edema, erythema with submucosal hemorrhages and ulcerations with luminal narrowing starting at 40 cms and extending proximally - biopsies obtained to check for ischemis colitis. Severe diverticulosis seen in the sigmoid colon Plan: Clear liquid diet and advance diet as tolerated. IV antibiotics. Abd CT scan with PO contrast to define extent of colitis. Await pathology results Colonoscopy in 5 yrs if she remains in stable health. Above findings were reviewed with the patient. Surgeon:?Janak Ruano MD Anesthesia:?MAC (Dr Rizo) Was an Photography Instructor used for this Procedure?:?Yes Photography Instructor:?Adore Bernard Estimated blood loss (mL):?0 Pathology:?other (a: sigmoid colon bxs r/o ischemic colitis) Condition:?stable Disposition:?PACU
--- NOTE | 2021-07-24 15:00 | PC.NURSE ---
MD CHILDS BY BEDSIDE. CALLED FOR YEAST TENDER.
--- NOTE | 2021-07-24 15:09 | PC.NURSE ---
MD CHILDS AND CARDIOLOGY COORDINATOR BY BEDSIDE.
[2021-07-24] MEDS: ondansetron HCL 4 MG/2 ML VIAL IVPUSH (15:40)
[2021-07-24] MEDS: metroNIDAZOLE/NS 500 MG/100 ML PIGGYBACK 100 MG IV ×2 (15:44→22:19)
[2021-07-24] MEDS: Lactated Ringers 1,000 ML 100 ML IVCONT (15:44)
[2021-07-24 17:37] LABS: Glucose, Whole Blood 119 mg/dL (60-115)
[2021-07-24] MEDS: Barium Sulfate Oral (Vanilla) 450 ML ORAL.SUSP PO ×2 (18:24→18:25)
[2021-07-24] MEDS: levoFLOXacin/D5W 500 MG/100 ML PIGGYBACK 100 MG IV (18:40)
[2021-07-24] MEDS: atenoloL 25 MG TABLET PO (20:09)
[2021-07-24 20:19] LABS: Glucose, Whole Blood 131 mg/dL (60-115)
[2021-07-25] VITALS (8 sets, daily range): BP systolic 107–163; BP diastolic 63–72; PULSE 59–70; RESP 16–18; TEMP 36.1–36.8; O2SAT 98–99; BMI 28.8
[2021-07-25] MEDS: Lactated Ringers 1,000 ML 100 ML IVCONT (02:19)
[2021-07-25 05:33] LABS: Hematocrit 28.1 % (37-47); Hemoglobin 9.6 g/dl (12.0-16.0)
[2021-07-25] MEDS: Omeprazole 20 MG CAPSULE.DR PO ×2 (06:03→16:06)
[2021-07-25] MEDS: metroNIDAZOLE/NS 500 MG/100 ML PIGGYBACK 100 MG IV ×2 (06:05→14:30)
[2021-07-25 07:36] LABS: Glucose, Whole Blood 113 mg/dL (60-115)
--- NOTE | 2021-07-25 11:10 | HO.PM.IMPN ---
Subjective Subjective Date of Service: 07/25/21 Interval History: colitis Review of Systems Abdominal discomfort seems improving on the left side. Denies any nausea vomiting or fever or chills Bleeding with the stools seems to be improving Physical Exam Vital Signs: Vital Signs: Last Vital Signs Temp 97.1 F 07/25/21 07:37 Pulse 65 07/25/21 07:37 Resp 17 07/25/21 07:37 BP 139/63 07/25/21 07:37 Pulse Ox 98 07/25/21 07:37 Body Mass Index 28.8 Appearance: Alert.? Oriented X3.? not in distress.? Eyes: Pupils equal, round and reactive to light.? Sclera nonicteric.? cvs: rrr, [id number] , no murmur res: clear to auscultation ,no rhonchii or wheezing abd: no rebound or guarding ,nt, bs present, lower abd scar-clean , no eryhtema or pain. ext pulses present , no cyanosis ,Gait well balanced well coordinated. neuro: axo3 , nonfocal. Objective Data Active Medications Acetaminophen (Acetaminophen 325 Mg Tablet) 650 mg PO Q6H PRN PRN Reason: Pain, Mild (Pain Scale 1-3) Atenolol (Atenolol 25 Mg Tablet) 25 mg PO BEDTIME YAA; Protocol Last Admin: 07/24/21 20:09 Dose: 25 mg Documented by: MIGUEL Dextrose (Dextrose 50 % 25 Gm/50 Ml Vial) 25 gm IVPUSH Q15M PRN; Protocol PRN Reason: per Hypoglycemia Standing Ord. Docusate Sodium (Docusate Sodium 100 Mg Capsule) 100 mg PO DAILY PRN PRN Reason: Constipation Glucose (Glucose Gel 15 Gm Gel..Gram.) 15 gm PO Q15M PRN; Protocol PRN Reason: per Hypoglycemia Standing Ord. Levofloxacin (Levaquin) 500 mg in 100 mls @ 100 mls/hr IV Q24H [facility] Last Infusion: 07/24/21 20:00 Dose: 0 mls/hr Documented by: MIGUEL Metronidazole (Flagyl) 500 mg in 100 mls @ 100 mls/hr IV Q8H [facility] Last Infusion: 07/25/21 07:41 Dose: 0 mls/hr Documented by: DURAN Insulin Human Lispro (Insulin Lispro 100 Unit/Ml 3 Ml Vial) 0 unit SUBCUT QIDACHS [facility]; Protocol Last Admin: 07/25/21 07:42 Dose: Not Given Documented by: DURAN Non-Admin Reason: No Insulin Coverage Magnesium Hydroxide (Milk Of Magnesia 30 Ml Oral.Susp) 30 ml PO DAILY PRN PRN Reason: Constipation Omeprazole (Omeprazole 20 Mg Capsule.Dr) 20 mg PO BID@0630,1630 [facility] Last Admin: 07/25/21 06:03 Dose: 20 mg Documented by: IMGUEL Ondansetron HCl (Ondansetron Hcl 4 Mg/2 Ml Vial) 4 mg IVPUSH Q8H PRN PRN Reason: Nausea and Vomiting Last Admin: 07/24/21 15:40 Dose: 4 mg Documented by: ALEXIS Sodium Biphosphate/Sodium Phosphate (Sodium Phosphate,[place]-Dibasic 133 Ml Enema) 133 ml AL ONCE PRN PRN Reason: Pre-Op Surgical Prep Last Admin: 07/24/21 13:52 Dose: 133 ml Documented by: MICHAELA Sodium Chloride (0.9 % Sodium Chloride Flush 3 Ml Syringe) 3 ml IVFLUSH QSHIFT [facility] Last Admin: 07/25/21 07:42 Dose: Not Given Documented by: DURAN Non-Admin Reason: IV Running Labs CBC & Chem 7: 07/25/21 05:17 07/24/21 06:45 Labs: Laboratory Results - last 24 hr 07/24/21 07/24/21 07/24/21 12:25 16:28 19:47 POC Glucose 109 119 H 131 H 07/25/21 07:16 POC Glucose 113 Assessment and Plan (1) Colitis: Status: Acute (2) GI bleeding: Status: Acute Assessment and Plan: 71-year-old female with history of HGB SC of Gyne the origin with recent exploratory laparotomy with multiple surgeries as mentioned in HPI in May, on Lovenox for DVT prophylaxis presents to the hospital with episodes of GI bleed. 1. lower GI bleed- patient is hemodynamically stable - most likely secondary to internal hemorrhoids versus diverticular bleed Again discussed with the patient in detail it seems like that her urine is clear as per the patient but she has some mucousy stool with blood from couple of days which is concerning for her and that is why she came to the hospital. H&H is done is above 10 range Bleeding is decreasing Monitor CBC: 9.6/28.1 Gi -colconoscopy:ischemic /inflmatory colitis-biopsy pending CT abdomen: Colitis involving the descending and sigmoid colon.? on omeprazole advancedto full liquids.?. 2. Acute blood loss anemia- normocytic anemia possibly secondary to above at this time patient hemodynamically stable with no significant drop in hemoglobin or hematocrit H&H stable as above. ?threshold for transfusion with hemoglobin less than 7 3. hypothyroidism- continue levothyroxine 4.diabetes: 110-130 - hold oral antihypertensives - will start low-dose sliding seen, hold coverage below 200 mg/dl. full liquid diet 5. htn: continue atenolol, hold lisinopril Quality Stroke Does the patient have a stroke diagnosis?: No VTE Prior VTE?: No VTE Risk Level:: Medical - moderate - high VTE Device Contraindication: N/A - Device Ordered VTE Drug Contraindication: Treatment Not Tolerated
[2021-07-25 11:48] LABS: Glucose, Whole Blood 99 mg/dL (60-115)
--- NOTE | 2021-07-25 12:05 | MHC.CLN ---
NUTRITION CONSULT NUTRITION CONSULT DUE TO POOR PO, WEIGHT LOSS, RECEIVING CHEMO. MET WITH PATIENT WITH NIECE PRESENT. NIECE REPORTED THAT PATIENT EATING WELL PRIOR TO THIS HOSPITALIZATION-WAS EATING REGULAR FOODS. COULD NOT CONFIRM WEIGHT LOSS, BUT LIKELY WITH EXTENSIVE SURGERY 06/13/21. DIET UPGRADED TO FULL LIQUIDS. ADD ENSURE TID TO PROVIDE 1050 KCAL, 60 G PROTEIN. POC REVIEWED, 99-131. ENSURE IS NOT A LOW SUGAR PRODUCT. FOLLOW FOR DIET ADVANCEMENT, INTAKE, AND BLOOD GLUCOSE.
--- NOTE | 2021-07-25 12:17 | MHC.CM.PN ---
PATIENT LIVES ALONE. SHE HAS A [facility]IE[facility] THAT HELPS WITH TRANSPORTATION AND ADLS ASSIST. NO DME IN THE HOME. SHE DOES HAVE A VISITING RN ONCE EVERY WEEK THROUGH HER MANAGED INSURANCE PLAN. 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 SHE USES THE [facility]. FIRST VISIT WAS JULY 23, AND NEXT IS SCHEDULED FOR AUGUST 12. HCP IS NIECE AND A COPY IS REQUESTED. SHE BELIEVES IT IS ON FILE AT [facility]. PCP IS DR CRANE OF [facility]. IMM 07/25 IN CHART. CASE MANAGEMENT FOLLOWING FOR DISCHARGE PLANS
[2021-07-25] MEDS: levoFLOXacin/D5W 500 MG/100 ML PIGGYBACK 100 MG IV (16:06)
[2021-07-25] MEDS: 0.9 % Sodium Chloride Flush 3 ML SYRINGE IVFLUSH (16:06)
[2021-07-25 16:26] LABS: Glucose, Whole Blood 106 mg/dL (60-115)
[2021-07-25] MEDS: atenoloL 25 MG TABLET PO (20:40)
[2021-07-25 20:41] LABS: Glucose, Whole Blood 105 mg/dL (60-115)
[2021-07-26] MEDS: metroNIDAZOLE/NS 500 MG/100 ML PIGGYBACK 100 MG IV ×2 (00:39→06:21)
[2021-07-26 04:00] VITALS: BP 126/62; PULSE 59; RESP 17; TEMP 36; O2SAT 99
[2021-07-26 05:42] LABS: Hematocrit 28.7 % (37-47); Hemoglobin 9.8 g/dl (12.0-16.0); Mean Corpuscular HGB Conc 34.1 g/dl (31.0-35.0); Mean Corpuscular Hemoglobin 32.7 pg (27.0-33.0); Mean Corpuscular Volume 95.7 fL (80-98); Platelet Count 133 X10*3/uL (160-400); Red Cell Distribution Width 12.4 % (11.0-16.0); White Blood Count 6.2 X10*3/uL (4.8-10.8)
[2021-07-26] MEDS: Omeprazole 20 MG CAPSULE.DR PO (05:45)
[2021-07-26 06:02] LABS: Anion Gap 12 (12-20); Blood Urea Nitrogen 9 mg/dL (9-16); Calcium 9.1 mg/dL (8.4-10.2); Carbon Dioxide 23 mmol/L (22-29); Chloride 108 mmol/L (96-108); Creatinine Clr Calc Pharmacy 64.7; Estimated Glomerular Filt Rate > 60; Glucose Random 108 mg/dL (60-115); Potassium 4.4 mmol/L (3.3-5.1); Sodium 139 mmol/L (135-145)
[2021-07-26 07:43] VITALS: BP 151/90; PULSE 59; RESP 16; TEMP 36.1; O2SAT 98
[2021-07-26 07:49] LABS: Glucose, Whole Blood 110 mg/dL (60-115)
[2021-07-26] MEDS: 0.9 % Sodium Chloride Flush 3 ML SYRINGE IVFLUSH (08:53)
--- NOTE | 2021-07-26 10:43 | PM.DS ---
DS: Providers Provider Date of Service: 07/26/21 Date of admission: 07/23/21 20:11 Primary care physician: Unknown Physician Consults: 07/23/21 21:40 Consult to Gastroenterology Routine Consulting Provider: Janak Ruano Reason for consultation: GI bleed Has provider been notified: Yes DS: Diagnosis Discharge Diagnosis (1) Colitis: Status: Acute (2) GI bleeding: Status: Acute DS: Summary Hospital Course Hospital Course: Chief Complaint: Blood per rectum This is a 71-year-old female with a recent history of exploratory laparotomy, total abdominal hysterectomy, bilateral salpingo-oophorectomy, omentectomy, appendectomy, tumor debulking and right proctoscopy for treatment of HGB SC on 06/13, on Lovenox for DVT prophylaxis presents to the hospital with complaints of bright red blood on wiping her self after bowel movements.? This occurred on Sunday and has been constant with every bowel movement.? She denies having any melena or blood mixed with stool but reports that every time she wipes after a bowel movement she has bleeding.? Patient reports slight abdominal pain at the surgical site but otherwise denies any dizziness, no shortness of breath, denies any chest pain, no abdominal pain, no nausea or vomiting.? At this time patient denies having any constipation and does not reports straining on BM.? She denies having any diarrhea.? No lower extremity edema no urinary symptoms. On arrival to the ED patient hemodynamically stable with no significant abnormal vitals Labs are significant for WBC count of 16.1, hemoglobin of 10.8 that dropped to 10 after about 6 hours, hematocrit of 31.4, labs otherwise unremarkable.? UA is negative, COVID is negative,.? Stool occult blood is positive. Hospital course: 1. Lower GI Bleed of unclear etilogy but likely related to colitis ischemic vs inflamatory. Had colonoscopy on 07/24 with finding of possible ischemic vs imflamatory changes, Biposy taken result pending. No further bleeding, diet has been advanced and toleratng. Has been also treted empirically with IV Flagyl and Levaquin and will change to oral levaquin and Flagyl for 7 days. 2. Acute blood loss anemia- d/t above, hgb is 9.8. No indication for transfusion at this time. Continue monitoring 3. hypothyroidism- continue levothyroxine 4. Diabetes--To restart home medications 5. htn: Resume winnie medications. Time Spent with Patient Time attestation: Total time spent providing and/or coordinating discharge services: Discharge coordination time: Greater than 30 minutes Quality: Stroke Does the patient have a stroke diagnosis?: No Physical Exam Vital Signs: Vital Signs: Last Vital Signs Temp 97.0 F 07/26/21 07:43 Pulse 59 07/26/21 07:43 Resp 16 07/26/21 07:43 BP 151/90 H 07/26/21 07:43 Pulse Ox 98 07/26/21 07:43 General: AO X 3, no acute distress Resp: CTA bilateral CVS: S1,S2,RRR GI: +BS, NT, no distention Skin: No rash Neuro: motor grossly intact Psych: appropriate affect DS: Data Data Completed and Pending Pending studies at discharge: Pending at discharge 07/24/21 14:33 Surgical [PTH] Routine Discharge Plan Discharge Anticipated Discharge Date/Time: 07/26/21 10:52 Patient Disposition: Home, Self-Care Discharge Diagnosis: Colitis, GIB and acute blood loss anemia Referrals: Physician,Unknown J [Primary Care Provider] - 1 Week Discharge Medications: New metronidazole 500 mg tablet 500 mg PO BID 10 Days Qty: 20 RF: 0 levofloxacin 500 mg tablet 500 mg PO DAILY 5 Days Qty: 5 RF: 0 Continued atorvastatin 40 mg Tablet 40 mg PO BEDTIME RF: 0 enalapril maleate 20 mg Tablet 20 mg PO DAILY RF: 0 clonazepam 1 mg Tablet 1 mg PO BEDTIME RF: 0 atenolol 25 mg Tablet 25 mg PO BEDTIME RF: 0 metformin 500 mg Tablet 250 mg PO DAILY RF: 0 levothyroxine 50 mcg Tablet 50 mcg PO DAILY RF: 0 aripiprazole 2 mg tablet 1 tab PO BEDTIME RF: 0 Certavite-Antioxidant 18-400 mg-mcg tablet 1 tab PO QAM RF: 0 calcium carbonate-vitamin D3 600 mg(1,500mg) -800 unit tablet 1 tab PO BID RF: 0 omeprazole 20 mg capsule,delayed release(DR/EC) 20 mg PO DAILY RF: 0 (DME) lancets 33 gauge misc See Rx Instructions tab PO BID Qty: 100 RF: 0 alcohol swabs Pads, Medicated topical BID RF: 0 (DME) FreeStyle Lite Strips Strip See Rx Instructions strip Not Applicable BID Qty: 10 RF: 0 metronidazole [Metrogel Vaginal] 0.75 % gel 1 appful vaginal BID 5 Days Qty: 70 RF: 2 Diet: advance to usual diet and diabetic diet Activity on Discharge: As tolerated Stand Alone Forms: Patient Portal Discharge page Care Plan Goals: recover from colitis Health Concerns: colitis, gib anemia Plan of Treatment: Take Flagyl and Levaquin as recommended and follow up with Dr. Ruano in 2 weeks Assessment: as above
[2021-07-26 11:19] VITALS: BP 151/80; PULSE 63; RESP 16; TEMP 36.2; O2SAT 98
[2021-07-26 11:39] LABS: Glucose, Whole Blood 107 mg/dL (60-115)
--- NOTE | 2021-07-26 13:25 | PC.NURSE ---
Skin assessment completed today. No skin issues noted at this time. Scattered bruising on arms
--- NOTE | 2021-07-26 13:53 | MHC.CM.PN ---
PT DISCHARGING HOME SELF-CARE, [facility] FOR TRANSPORT.
[2021-07-26 15:33] VITALS: BP 145/71; PULSE 60; RESP 17; TEMP 36.9; O2SAT 98
== END 2021-07-26 16:30 | disposition home or self-care (01) | DRG 393 ==
LOC: HO.ED 18:50 → HO.EDOVER 21:17 → HO.S3 07-24 14:57
PROVIDERS: Internal Medicine; Internal Medicine Gastroenterology; Admitting Provider Internal Medicine; Emergency Provider Emergency Medicine Emergency Medical Services; PCP Internal Medicine; Visit Provider Internal Medicine
PROC: 0DJD8ZZ Inspection of Lower Intestinal Tract, Via Natural or Artificial Opening Endoscopic (ICD-10-PCS; CPT 45330; principal; 2021-07-24 14:00)
DX: K55.9 Vascular disorder of intestine, unspecified (principal); K57.31 Diverticulosis of large intestine without perforation or abscess with bleeding; D62 Acute posthemorrhagic anemia; C79.89 Secondary malignant neoplasm of other specified sites; K21.9 Gastro-esophageal reflux disease without esophagitis; F41.9 Anxiety disorder, unspecified; E86.0 Dehydration; I10 Essential (primary) hypertension; Z85.42 Personal history of malignant neoplasm of other parts of uterus; E03.9 Hypothyroidism, unspecified; E11.9 Type 2 diabetes mellitus without complications; Z20.822 Contact with and (suspected) exposure to COVID-19; Z79.84 Long term (current) use of oral hypoglycemic drugs; Z79.890 Hormone replacement therapy; Z79.899 Other long term (current) drug therapy
CPT/HCPCS: 36415; 74176; 80048; 80053; 81001; 82272; 82947; 85014; 85018; 85025; 85027; 85610; 85730; 86850; 86900; 86901; 87635; 88305; 96360; 99285; J1956; J2270; J2405

== ENCOUNTER 2021-08-25 12:42 | Outpatient (REF) | payer MEDICARE, SELFPAY ==
--- NOTE | ~2021-08-25 | MM_ITS ---
EXAMINATION: MM SCREENING DIGITAL BREAST TOMOSYNTHESIS, BILATERAL CLINICAL INFORMATION: Screening. Asymptomatic. The lifetime risk of breast cancer based on the Tyrer-Cuzick Model is 5.1%. COMPARISON: Mammography: June 14, 2020 and studies dating back to June 26, 2012 TECHNIQUE: Digital breast tomosynthesis is performed in both the craniocaudal and mediolateral oblique views along with computer-aided detection (CAD). Synthesized 2D images are generated from the tomosynthesis. FINDINGS: There are scattered areas of fibroglandular density (ACR BI-RADS breast composition Category b). There are no significant masses, abnormal calcifications, or other abnormalities. MM/MM tomosynthesis screening BI IMPRESSION: There are no significant changes from prior study. ASSESSMENT: BI-RADS 1: Negative RECOMMENDATION: Routine annual mammography screening. This patient's information was entered into a reminder system with a target due date for their next mammogram.
== END 2021-08-25 12:43 | disposition home or self-care (01) ==
LOC: HO.MAMMO 12:42
PROVIDERS: PCP Internal Medicine; Visit Provider Internal Medicine
DX: Z12.31 Encounter for screening mammogram for malignant neoplasm of breast (principal)
CPT/HCPCS: 77063; 77067

== ENCOUNTER → 2021-11-07 11:24 | Outpatient (BNVA) | payer MEDICARE, SELFPAY | PROVIDERS: PCP Internal Medicine | DX: N39.41 Urge incontinence (principal) | CPT/HCPCS: 99212 ==

== ENCOUNTER 2021-12-28 11:42 | Outpatient (REF) | payer MEDICARE, SELFPAY ==
--- NOTE | ~2021-12-28 | XR_ITS ---
EXAMINATION: BILATERAL KNEE AND RIGHT HIP. CLINICAL INFORMATION: Pain. COMPARISON: None TECHNIQUE: 4 views each knee. 2 views right hip. FINDINGS: Left knee: The tricompartment joint space is maintained normal. No bony erosive changes or loose body seen. There is a tripartite patella. Nonspecific mild soft tissue swelling is seen in the prevertebral region. Question recent trauma. Right knee: The tricompartment joint space is maintained normal. No visible acute fracture or dislocation seen. No bony erosive changes. No loose bodies. Right hip: There is mild loss of right hip joint space with moderate periapical spurring. No subchondral cystic changes seen. No loose bodies. No joint effusion. There is a right presacral electrode noted. XR/XR hip RT min 2V IMPRESSION: Moderate to advanced degenerative changes right hip joint but no visible acute fracture or dislocation. Tripartite left patella with mild soft tissue swelling. Correlate with recent trauma if any. Otherwise unremarkable. Unremarkable right knee exam..
--- NOTE | ~2021-12-28 | XR_ITS ---
EXAMINATION: BILATERAL KNEE AND RIGHT HIP. CLINICAL INFORMATION: Pain. COMPARISON: None TECHNIQUE: 4 views each knee. 2 views right hip. FINDINGS: Left knee: The tricompartment joint space is maintained normal. No bony erosive changes or loose body seen. There is a tripartite patella. Nonspecific mild soft tissue swelling is seen in the prevertebral region. Question recent trauma. Right knee: The tricompartment joint space is maintained normal. No visible acute fracture or dislocation seen. No bony erosive changes. No loose bodies. Right hip: There is mild loss of right hip joint space with moderate periapical spurring. No subchondral cystic changes seen. No loose bodies. No joint effusion. There is a right presacral electrode noted. XR/XR knee LT 4V IMPRESSION: Moderate to advanced degenerative changes right hip joint but no visible acute fracture or dislocation. Tripartite left patella with mild soft tissue swelling. Correlate with recent trauma if any. Otherwise unremarkable. Unremarkable right knee exam..
--- NOTE | ~2021-12-28 | XR_ITS ---
EXAMINATION: BILATERAL KNEE AND RIGHT HIP. CLINICAL INFORMATION: Pain. COMPARISON: None TECHNIQUE: 4 views each knee. 2 views right hip. FINDINGS: Left knee: The tricompartment joint space is maintained normal. No bony erosive changes or loose body seen. There is a tripartite patella. Nonspecific mild soft tissue swelling is seen in the prevertebral region. Question recent trauma. Right knee: The tricompartment joint space is maintained normal. No visible acute fracture or dislocation seen. No bony erosive changes. No loose bodies. Right hip: There is mild loss of right hip joint space with moderate periapical spurring. No subchondral cystic changes seen. No loose bodies. No joint effusion. There is a right presacral electrode noted. XR/XR knee RT 4V IMPRESSION: Moderate to advanced degenerative changes right hip joint but no visible acute fracture or dislocation. Tripartite left patella with mild soft tissue swelling. Correlate with recent trauma if any. Otherwise unremarkable. Unremarkable right knee exam..
== END 2021-12-28 11:43 | disposition home or self-care (01) ==
LOC: HO.XRAY 11:42
PROVIDERS: Absent Provider General Practice; PCP General Practice; Visit Provider Emergency Medicine
DX: M25.551 Pain in right hip (principal); M25.561 Pain in right knee; M25.562 Pain in left knee; R22.42 Localized swelling, mass and lump, left lower limb
CPT/HCPCS: 73502; 73564

== ENCOUNTER → 2022-01-20 08:52 | Outpatient (BNVA) | payer MEDICARE, SELFPAY | PROVIDERS: PCP General Practice; Visit Provider Physician Assistant | DX: M17.0 Bilateral primary osteoarthritis of knee (principal); M54.9 Dorsalgia, unspecified | CPT/HCPCS: 20610; 99202; J1020 ==

== ENCOUNTER 2022-02-15 07:55 | Emergency (ER) | payer OTHER, SELFPAY ==
--- NOTE | ~2022-02-15 | CT_ITS ---
EXAMINATION: CT LUMBAR SPINE WITHOUT CONTRAST CLINICAL INFORMATION: Low back pain COMPARISON: Lumbar spine x-ray February [address] of the abdomen and pelvis July 2021 TECHNIQUE: Axial images through the lumbar spine without contrast. Sagittal and coronal instructions on the technologist workstation were performed. This CT examination was performed using dose optimization techniques as appropriate, variously including the following: *Automated exposure control *Adjustment of mA and/or kV according to patient size (this includes techniques or standardized protocols for targeted exams where dose is matched to indication/reason for exam; i.e. extremities or head) *Use of iterative reconstruction technique DLP; 423 mGy-cm FINDINGS: Bone alignment is normal. There is question of mild compression fracture of the left superior endplate of the T12 vertebral body and left inferior endplate of the L1 vertebral body. This is a new finding compared to previous CT of the abdomen and pelvis July 2021 There is degenerative disc disease at L2-L3. At L1-L2 there is left lateral disc bulge. No disc herniation is seen. Spinal canal, lateral recesses and neural foramen are patent L2-L3 there is diffuse and left lateral disc bulge. No disc herniation is seen. Spinal canal, lateral recesses and neural foramen are patent. At L3-L4 there is diffuse disc bulge. No disc herniation is seen. Spinal canal, lateral recesses and neural foramen are patent. At L4-L5 there is diffuse disc bulge. There is mild secondary spinal stenosis due to disc, and short pedicles. No disc herniation is seen. At L5-S1 there is right paracentral disc protrusion or small herniation Spinal canal, lateral recesses and neural foramen are patent. There is a lead in the right buttock. Paraspinal soft tissues are otherwise unremarkable. CT/CT lumbar spine wo con IMPRESSION: Multilevel degenerative disc disease. Question mild compression fractures of the left superior endplate of T12 and left inferior endplate of L1 vs Schmorl's nodes.
[2022-02-15 08:21] VITALS: BP 155/63; PULSE 74; RESP 18; TEMP 36.4; O2SAT 97; BMI 27.0
--- NOTE | 2022-02-15 08:49 | ED_ITS ---
HPI - Back Pain/Injury General Chief Complaint: Back Pain/Injury Stated Complaint: back pain Time Seen by Provider: 02/15/22 08:29 Source: patient and counselor education professor Mode of arrival: ambulatory Limitations: no limitations History of Present Illness MD elicited complaint: back pain Onset (ago): week(s) (3) Timing: constant Severity: moderate Similar Symptoms Previously: No Quality: sharp Location: lumbar spine Radiation: buttocks and right upper leg Exacerbating factors: movement and sitting upright Relieving factors: none Associated symptoms: difficulty walking Work related injury: No Related Data Home Medications Medication Instructions Recorded Confirmed atenolol 25 mg tablet 25 mg PO BEDTIME 07/08/20 07/24/21 atorvastatin 40 mg tablet 40 mg PO BEDTIME 07/08/20 07/24/21 clonazepam 1 mg tablet 1 mg PO BEDTIME 07/08/20 07/24/21 enalapril maleate 20 mg tablet 20 mg PO DAILY 07/08/20 07/24/21 levothyroxine 50 mcg tablet 50 mcg PO DAILY 07/08/20 07/24/21 metformin 500 mg tablet 250 mg PO DAILY 07/08/20 07/24/21 alcohol swabs pad TOPICAL BID 07/22/20 12/20/20 blood sugar diagnostic #10 ea 07/22/20 12/20/20 calcium carbonate 600 mg-vitamin 1 tab PO BID 07/22/20 07/24/21 D3 20 mcg (800 unit) tablet lancets 33 gauge #100 ea 07/22/20 12/20/20 omeprazole 20 mg capsule,delayed 20 mg PO DAILY 07/22/20 07/24/21 release aripiprazole 2 mg tablet 1 tab PO BEDTIME 07/24/21 07/24/21 multivitamin-ferrous 1 tab PO QAM 07/24/21 07/24/21 fumarate-folic acid 18 mg-400 mcg tablet (Certavite-Antioxidant) Previous Rx's Medication Instructions Recorded metronidazole 0.75 % vaginal gel 1 appful VAGINAL BID 5 Days #70 g 10/22/20 (Metrogel Vaginal) levofloxacin 500 mg tablet 500 mg PO DAILY 5 Days #5 tab 07/26/21 metronidazole 500 mg tablet 500 mg PO BID 10 Days #20 tab 07/26/21 lidocaine 5 % topical patch 1 patch TOPICAL DAILY PRN #30 ea 02/15/22 oxycodone 5 mg tablet 5 mg PO TID PRN #14 tab 02/15/22 Allergies Allergy/AdvReac Type Severity Reaction Status Date / Time No Known Allergies Allergy Verified 01/20/22 09:06 Review of Systems Review of Systems: Constitutional : No Weight loss, No Fever, No Chills, ENT/Mouth : No Hearing loss, No Ear Pain, No Nasal Congestion, No Sinus Pain, No Hoarseness, No sore throat, No Rhinorrhea, No Swallowing Difficulty Cardiovascular : No Chest Pain, No SOB Respiratory : No Cough, No Dyspnea Gastrointestinal : No Nausea, No Vomiting, No Diarrhea, No abdominal Pain, No Hematochezia, No Melena Genitourinary : No Dysuria, No Urinary Frequency, No Hematuria, No Urinary Incontinence, Musculoskeletal : positive back pain Skin : No Skin Lesions, No rash Neuro : No Weakness, No Numbness, No Paresthesias, no loss of bowel or bladder incontinence, no saddle anesthesia All other systems reviewed and are negative PMFSH Past Medical History Attestation statement: The following information was validated with the patient. Medical History Acute hemorrhoid Anxiety Arthritis Back pain Depression Diabetes Elevated cholesterol GERD (gastroesophageal reflux disease) HTN (hypertension) Osteoarthritis Ovarian cancer Peptic ulcer Thyroid disease Uterine cancer Surgical History H/O cataract extraction H/O colonoscopy H/O cystoscopy H/O excision of mass H/O: hysterectomy History of esophagogastroduodenoscopy (EGD) Hx of tonsillectomy Previous back surgery Family History Family History Mother HTN (hypertension) Diabetes Father HTN (hypertension) Sister Diabetes Social History Social History Household Members: None Housing: Apartment Do you presently have visiting nurse or other home services: Yes ([facility]) Alcohol intake: never Patient Tobacco Use Status: Never used Tobacco Advance Directives: Yes Advance Directives on File: Yes Advance Directives Date on File: 02/15/22 service: No Current occupational status: disabled Gender identity: Female Physical Exam Vital Signs: Vital Signs: Last Vital Signs Temp 97.2 F 02/15/22 11:34 Pulse 64 02/15/22 11:34 Resp 16 02/15/22 11:34 BP 166/74 H 02/15/22 11:34 Pulse Ox 97 02/15/22 11:34 BMI result Body Mass Index 27.0 Appearance: Alert. Oriented X3. No acute distress. Eyes: Pupils equal, round and reactive to light. ENT: Pharynx normal. Neck: Normal inspection. Neck supple. CVS: Normal heart rate and rhythm. Pulses normal. Respiratory: No respiratory distress. Breath sounds normal. Abdomen: Soft and nontender. Back: ttp along R lower lumbar paraspinal area, no R buttock pain, has antalgic gait Skin: Skin warm and dry. Normal skin color. Normal skin turgor. Extremities: No lower extremity edema. No calf ttp Neuro: Oriented X 3. No motor deficit. No sensory deficit. SILT inner thigh bilateral L5 5/5 Course Course Course Narrative: pain better than when she came in, VNA involved per CM MDM - Back Pain/Injury MDM Narrative Medical decision making narrative: 71 yo female with hx of BV, ovarian cyst, overactive bladder has stimulator but doesn't know how to work it, back pain no IVDA no AC therapy at this time has no b/b incontinence, no saddle anesthesia she is distal NV intact - will treat pain and obtain CT scan to evaluate lumbar spine as well as stimulator. Will involve CM for VNA to help with stimulator. No CE symptoms seems like disc with radicular symptoms Lab Data Labs: Lab Results 02/15/22 Range/Units 09:43 Urine Color YELLOW Urine Appearance CLEAR Urine pH 5.5 (5.0-8.0) Ur Specific Decker 1.025 (1.005-1.025) Urine Protein NEG (NEG-TRACE) MG/DL Urine Glucose (UA) NEG (NEG) MG/DL Urine Ketones NEG (NEG) MG/DL Urine Blood 1+ H (NEG) Urine Nitrite NEG (NEG) Ur Leukocyte Esterase TRACE H (NEG) Urine RBC 0 (0) /HPF Urine WBC 1-4 (0-4) /HPF Ur Squamous Epith Cells 3+ /LPF Ur Renal Epithelial Cell TRACE /LPF Urine Bacteria 1+ /LPF Discharge Plan Discharge Clinical Impression: Closed compression fracture of body of L1 vertebra Back pain Qualifiers: Back pain location: low back pain Chronicity: acute Back pain laterality: right Sciatica presence: with sciatica Sciatica laterality: sciatica of right side Qualified Code(s): M54.41 - Lumbago with sciatica, right side Closed wedge compression fracture of T12 vertebra Qualifiers: Encounter type: initial encounter Qualified Code(s): S22.080A - Wedge com pression fracture of T11-T12 vertebra, initial encounter for closed fracture Patient Disposition: Home, Self-Care Instructions: Vertebral Compression Fracture (ED), Back Pain (ED) Additional Instructions: return to ED for any worsening symptoms or concerns FINDINGS: Bone alignment is normal. There is question of mild compression fracture of the left superior endplate of the T12 vertebral body and left inferior endplate of the L1 vertebral body. This is a new finding compared to previous CT of the abdomen and pelvis July 2021 There is degenerative disc disease at L2-L3. At L1-L2 there is left lateral disc bulge. No disc herniation is seen. Spinal canal, lateral recesses and neural foramen are patent L2-L3 there is diffuse and left lateral disc bulge. No disc herniation is seen. Spinal canal, lateral recesses and neural foramen are patent. At L3-L4 there is diffuse disc bulge. No disc herniation is seen. Spinal canal, lateral recesses and neural foramen are patent. At L4-L5 there is diffuse disc bulge. There is mild secondary spinal stenosis due to disc, and short pedicles. No disc herniation is seen. At L5-S1 there is right paracentral disc protrusion or small herniation Spinal canal, lateral recesses and neural foramen are patent. There is a lead in the right buttock. Paraspinal soft tissues are otherwise unremarkable. CT/CT lumbar spine wo con IMPRESSION: Multilevel degenerative disc disease. Question mild compression fractures of the left superior endplate of T12 and left inferior endplate of L1 vs Schmorl's nodes. Prescriptions: New lidocaine 5 % adhesive patch,medicated 1 patch topical DAILY PRN (Reason: pain) Qty: 30 0RF Rx Instructions: leave on most painful area for up to 12 hrs oxycodone 5 mg tablet 5 mg PO TID PRN (Reason: pain) Qty: 14 0RF No Action atorvastatin 40 mg Tablet 40 mg PO BEDTIME 0RF enalapril maleate 20 mg Tablet 20 mg PO DAILY 0RF clonazepam 1 mg Tablet 1 mg PO BEDTIME 0RF atenolol 25 mg Tablet 25 mg PO BEDTIME 0RF metformin 500 mg Tablet 250 mg PO DAILY 0RF levothyroxine 50 mcg Tablet 50 mcg PO DAILY 0RF aripiprazole 2 mg tablet 1 tab PO BEDTIME 0RF Certavite-Antioxidant 18-400 mg-mcg tablet 1 tab PO QAM 0RF metronidazole 500 mg tablet 500 mg PO BID 10 Days Qty: 20 0RF levofloxacin 500 mg tablet 500 mg PO DAILY 5 Days Qty: 5 0RF calcium carbonate-vitamin D3 600 mg(1,500mg) -800 unit tablet 1 tab PO BID 0RF omeprazole 20 mg capsule,delayed release(DR/EC) 20 mg PO DAILY 0RF (DME) lancets 33 gauge misc See Rx Instructions tab PO BID Qty: 100 0RF Rx Instructions: As directed alcohol swabs Pads, Medicated topical BID 0RF (DME) blood sugar diagnostic Strip See Rx Instructions strip Not Applicable BID Qty: 10 0RF Rx Instructions: As directed metronidazole [Metrogel Vaginal] 0.75 % gel 1 appful vaginal BID 5 Days Qty: 70 2RF Referrals: Yecenia Hood MD [Primary Care Provider] - 5 days Print Language: Hong Konger
[2022-02-15] MEDS: Ondansetron ODT 4 MG TAB.RAPDIS TRANSLINGU (09:28)
[2022-02-15] MEDS: oxyCODONE HCl Immed Release 5 MG TABLET PO (09:29)
[2022-02-15 09:50] LABS: Appearance Urine CLEAR; Color Urine YELLOW; Glucose Urine UA NEG (NEG); Leukocyte Esterase Urine TRACE (NEG); Nitrite Urine NEG (NEG); PH 5.5 (5.0-8.0); Specific Gravity - Urine 1.025 (1.005-1.025); UACC Culture Trigger NO; Urine Blood 1+ (NEG); Urine Ketones NEG (NEG); Urine Protein NEG (NEG-TRACE)
[2022-02-15 10:01] LABS: Bacteria Urine 1+ /LPF; Squamous Epithelial Cell Urine 3+ /LPF
[2022-02-15 10:02] LABS: RBC Urine 0 /HPF (0)
[2022-02-15 10:03] LABS: Renal Epithelial Cells Urine TRACE /LPF
[2022-02-15 11:34] VITALS: BP 166/74; PULSE 64; RESP 16; TEMP 36.2; O2SAT 97
--- NOTE | 2022-02-15 12:00 | MHC.CM.ED ---
Addendum entered by Louise Painter 02/15/22 12:16: [facility] has accepted patient. ER d/c and Face to face faxed to [facility]. Arlene at [facility] aware. Original Note: Received case management consult from Dr Park Patient came to the ER due to back pain. Work up is pending. Patient has a bladder stimulator that she hasn't been able to charge. Met with patient and sister, Joyce with the safety advisor. Patient lives alone, ambulates independently and had no services prior to coming to the hospital. PCP verified. HCP completed, signed and witnessed. Original given to patient. Copy placed in chart. Patient received 2 Moderna vaccines. Patient had bladder stimulator placed by Dr Gonzalez on 08/10/2020. Patient's niece was helping her charge the unit but she is no longer able to help. Patient is primarily Salvadorean speaking. Bladder stimulator instructions are in Mongolian. Patient also feels like her legs are very weak. Patient doesn't feel rehab is necessary but is agreeable to VNA referral. Referral broadcasted in [email or web address]. Spoke with Arlene at [facility]. They will authorize VNA. Deisi PEREZ and Dr Park aware. Continue to monitor for d/c needs.
== END 2022-02-15 12:12 | disposition home or self-care (01) ==
PROVIDERS: Emergency Provider Emergency Medicine; PCP General Practice
DX: M54.41 Lumbago with sciatica, right side (principal); M48.56XA Collapsed vertebra, not elsewhere classified, lumbar region, initial encounter for fracture; M48.54XA Collapsed vertebra, not elsewhere classified, thoracic region, initial encounter for fracture; E11.9 Type 2 diabetes mellitus without complications; I10 Essential (primary) hypertension; N32.81 Overactive bladder; Z96.0 Presence of urogenital implants
CPT/HCPCS: 72131; 81001; 99284

== ENCOUNTER 2022-09-13 11:32 | Outpatient (REF) | payer OTHER, SELFPAY ==
--- NOTE | ~2022-09-13 | MM_ITS ---
EXAMINATION: MM SCREENING DIGITAL BREAST TOMOSYNTHESIS, BILATERAL CLINICAL INFORMATION: Screening. Asymptomatic. The lifetime risk of breast cancer based on the Tyrer-Cuzick Model is 5%. COMPARISON: Mammography: 08/25/2021, 06/14/2020, 03/28/2019 TECHNIQUE: Digital breast tomosynthesis is performed in both the craniocaudal and mediolateral oblique views along with computer-aided detection (CAD). Synthesized 2D images are generated from the tomosynthesis. FINDINGS: There are scattered areas of fibroglandular density (ACR BI-RADS breast composition Category b). There are no significant masses, abnormal calcifications, or other abnormalities. MM/MM tomosynthesis screening BI IMPRESSION: No mammographic evidence of malignancy. ASSESSMENT: BI-RADS 1: Negative RECOMMENDATION: Routine annual mammography screening. This patient's information was entered into a reminder system with a target due date for their next mammogram.
== END 2022-09-13 11:33 | disposition home or self-care (01) ==
LOC: HO.MAMMO 11:32
PROVIDERS: Visit Provider General Practice
DX: Z12.31 Encounter for screening mammogram for malignant neoplasm of breast (principal)
CPT/HCPCS: 77063; 77067

== ENCOUNTER 2023-01-15 12:49 | Outpatient (REF) | payer OTHER, SELFPAY ==
--- NOTE | ~2023-01-15 | XR_ITS ---
EXAMINATION: XR LUMBOSACRAL SPINE WITH OBLIQUES CLINICAL INFORMATION: Low back pain COMPARISON: Previous x-ray most recent February [address] February 2022 TECHNIQUE: AP, both oblique, and lateral views of the lumbar spine. Lateral view of the lumbosacral junction. FINDINGS: There is mild retrolisthesis of L2 with respect to L3. There is mild curvature of the lower lumbar spine to the right. Bone alignment is otherwise normal. No fracture or dislocation. Degenerative disc disease at L2-L3. Lower lumbar spine facet arthritis. Stimulator lead projecting over the right sacrum. XR/XR lumbar spine 4V min IMPRESSION: Mild retrolisthesis of L2 with respect to L3 and degenerative disc disease at L2-L3. Lower lumbar spine facet arthritis.
--- NOTE | ~2023-01-15 | XR_ITS ---
EXAMINATION: XR HIP, LEFT CLINICAL INFORMATION: Pain COMPARISON: None available. TECHNIQUE: Two views of the left hip. FINDINGS: Bone alignment is normal. No fracture or dislocation. Mild arthritis with small osteophytes. Normal soft tissues. Stimulator lead projecting over the right sacrum. XR/XR hip LT min 2V IMPRESSION: Mild left hip arthritis.
== END 2023-01-15 12:50 | disposition home or self-care (01) ==
LOC: HO.XRAY 12:49
PROVIDERS: PCP General Practice; Visit Provider General Practice
DX: M25.552 Pain in left hip (principal); M54.50 Low back pain, unspecified
CPT/HCPCS: 72110; 73502

== ENCOUNTER → 2023-01-31 09:24 | Outpatient (BNVA) | payer OTHER, SELFPAY | PROVIDERS: PCP General Practice; Visit Provider Nurse Practitioner Family | DX: N39.41 Urge incontinence (principal); R35.0 Frequency of micturition; N31.8 Other neuromuscular dysfunction of bladder; E11.9 Type 2 diabetes mellitus without complications; Z79.84 Long term (current) use of oral hypoglycemic drugs | CPT/HCPCS: 51798; 99212 ==

== ENCOUNTER → 2023-03-01 12:45 | Outpatient (BNVA) | payer OTHER, SELFPAY | PROVIDERS: PCP General Practice; Visit Provider Nurse Practitioner Family ==

== ENCOUNTER 2023-03-06 08:04 | Outpatient (REF) | payer OTHER, SELFPAY ==
--- NOTE | ~2023-03-06 | XR_ITS ---
EXAMINATION: Knee x-ray CLINICAL INFORMATION: Pain COMPARISON: Previous x-ray most recent from 2021 TECHNIQUE: Standing AP, lateral and sunrise view of both knees FINDINGS: Right: Bone alignment is normal. No fracture or dislocation. Normal joint spaces. No significant joint effusion. Left: Bone alignment is normal. No acute fracture or dislocation. 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 Normal joint spaces. No significant joint effusion. 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
--- NOTE | ~2023-03-06 | XR_ITS ---
EXAMINATION: Knee x-ray CLINICAL INFORMATION: Pain COMPARISON: Previous x-ray most recent from 2021 TECHNIQUE: Standing AP, lateral and sunrise view of both knees FINDINGS: Right: Bone alignment is normal. No fracture or dislocation. Normal joint spaces. No significant joint effusion. Left: Bone alignment is normal. No acute fracture or dislocation. 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 Normal joint spaces. No significant joint effusion. 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
--- NOTE | ~2023-03-06 | XR_ITS ---
EXAMINATION: Knee x-ray CLINICAL INFORMATION: Pain COMPARISON: Previous x-ray most recent from 2021 TECHNIQUE: Standing AP, lateral and sunrise view of both knees FINDINGS: Right: Bone alignment is normal. No fracture or dislocation. Normal joint spaces. No significant joint effusion. Left: Bone alignment is normal. No acute fracture or dislocation. 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 Normal joint spaces. No significant joint effusion. 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
== END 2023-03-06 08:05 | disposition home or self-care (01) ==
LOC: HO.HOSX 08:04
PROVIDERS: Visit Provider Physician Assistant
DX: M17.0 Bilateral primary osteoarthritis of knee (principal); E11.9 Type 2 diabetes mellitus without complications
CPT/HCPCS: 20610; 73560; 73565; 99212; J1020

== ENCOUNTER 2023-04-03 12:54 | Outpatient (REF) | payer OTHER, SELFPAY ==
--- NOTE | ~2023-04-03 | US_ITS ---
EXAMINATION: US RETROPERITONEAL COMPLETE (RENAL) CLINICAL INFORMATION: Other neuromuscular dysfunction of bladder. COMPARISON: CT abdomen and pelvis without contrast dated 07/24/2021. TECHNIQUE: Real-time imaging of the kidneys and bladder. FINDINGS: RIGHT KIDNEY: 9.4 x 5.1 x 5.3 cm (SAG x AP x TRV). The kidney is normal in size, contour, and echogenicity. Renal cortical thickness is normal. No calculi . Probable multiple benign Bosniak class I renal cysts are noted which require no additional imaging or follow-up. No solid renal masses are seen. No hydronephrosis. LEFT KIDNEY: 9.6 x 4.2 x 5.2 cm (SAG x AP x TRV). The kidney is normal in size, contour, and echogenicity. Renal cortical thickness is normal. No calculi . Multiple benign Bosniak class I renal parapelvic cysts are noted which require no additional imaging or follow-up. No solid renal masses are seen. No hydronephrosis. BLADDER: Well distended and normal. Bilateral ureteral jets are demonstrated. Prevoid bladder volume is 155 mL. Postvoid bladder volume is 9.78 mL. US/US retroperitoneal comp IMPRESSION: Negative exam.
== END 2023-04-03 12:55 | disposition home or self-care (01) ==
LOC: HO.US 12:54
PROVIDERS: PCP General Practice; Visit Provider Nurse Practitioner Family
DX: R35.0 Frequency of micturition (principal); N31.8 Other neuromuscular dysfunction of bladder; R39.15 Urgency of urination
CPT/HCPCS: 76770

== ENCOUNTER 2023-04-19 13:15 | Emergency (ER) | payer OTHER, SELFPAY ==
[2023-04-19 13:40] VITALS: BP 173/63; PULSE 86; RESP 18; TEMP 36.7; O2SAT 98; BMI 28.3
--- NOTE | 2023-04-19 13:42 | ED.GENADULT ---
HPI - General Adult General Chief complaint: Skin/Abscess/Foreign Body Stated complaint: Rash Bottom R Leg Time Seen by Provider: 04/19/23 14:36 History of Present Illness HPI narrative: patient complains of rash on shins of both legs worse on the right but now starting to appear on the left, the rash is mildly itchy it does not hurt it does not burn there is no other associated signs or symptoms, there is no difficulty ambulating There is no chest pain no shortness of breath no pain in the back of the leg Related Data Home Medications Medication Instructions Recorded Confirmed atenolol 25 mg tablet 25 mg PO BEDTIME 07/08/20 07/24/21 atorvastatin 40 mg tablet 40 mg PO BEDTIME 07/08/20 07/24/21 clonazepam 1 mg tablet 1 mg PO BEDTIME 07/08/20 07/24/21 enalapril maleate 20 mg tablet 20 mg PO DAILY 07/08/20 07/24/21 levothyroxine 50 mcg tablet 50 mcg PO DAILY 07/08/20 07/24/21 metformin 500 mg tablet 250 mg PO DAILY 07/08/20 07/24/21 alcohol swabs pad topical BID diabetes mellitus 07/22/20 12/20/20 blood sugar diagnostic #10 ea 07/22/20 12/20/20 calcium carbonate 600 mg-vitamin 1 tab PO BID 07/22/20 07/24/21 D3 20 mcg (800 unit) tablet lancets 33 gauge #100 ea 07/22/20 12/20/20 omeprazole 20 mg capsule,delayed 20 mg PO DAILY 07/22/20 07/24/21 release aripiprazole 2 mg tablet 1 tab PO BEDTIME 07/24/21 07/24/21 multivitamin-ferrous 1 tab PO QAM 07/24/21 07/24/21 fumarate-folic acid 18 mg-400 mcg tablet (Certavite-Antioxidant) acetaminophen 650 mg 650 mg PO TID 01/31/23 tablet,extended release amlodipine 10 mg tablet 10 mg PO DAILY 01/31/23 aripiprazole 5 mg tablet 5 mg PO QAM 01/31/23 clonazepam 0.5 mg tablet 0.5 mg PO 01/31/23 Previous Rx's Medication Instructions Recorded metronidazole 0.75 % (37.5 mg/5 1 appful vaginal BID 5 days #70 10/22/20 gram) vaginal gel (Metrogel grams Vaginal) metronidazole 500 mg tablet 500 mg PO BID 10 days #20 tabs 07/26/21 lidocaine 5 % topical patch 1 patch topical DAILY PRN pain #30 02/15/22 ea loratadine 10 mg tablet 10 mg PO DAILY PRN itch #10 tabs 04/19/23 (Allerclear) Allergies Allergy/AdvReac Type Severity Reaction Status Date / Time No Known Allergies Allergy Verified 04/19/23 13:39 [facility] Past Medical History Source: nursing notes reviewed Medical History (Updated 04/19/23 @ 19:00 by EMMA Sumner) Acute hemorrhoid Anxiety Arthritis Back pain Depression Diabetes Elevated cholesterol GERD (gastroesophageal reflux disease) HTN (hypertension) Osteoarthritis Ovarian cancer Peptic ulcer Thyroid disease Uterine cancer Surgical History H/O cataract extraction H/O colonoscopy H/O cystoscopy H/O excision of mass H/O: hysterectomy History of esophagogastroduodenoscopy (EGD) Hx of tonsillectomy Previous back surgery Family History Family History Mother HTN (hypertension) Diabetes Father HTN (hypertension) Sister Diabetes Social History Social History Household Members: None Housing: Apartment Do you presently have visiting nurse or other home services: Yes ([facility]) Alcohol intake: never Patient Tobacco Use Status: Never used Tobacco Advance Directives: Yes Advance Directives on File: Yes Advance Directives Date on File: 02/15/22 service: No Current occupational status: disabled Gender identity: Female Physical Exam ED Vital Signs: Vital Signs - 24 hr 04/19/23 13:40 Temperature 98.1 F Pulse Rate 86 Respiratory Rate 18 Blood Pressure 173/63 H Pulse Oximetry 98 Oxygen Delivery Method Room Air BMI result Body Mass Index 28.3 general appearance no distress Eyes no redness or discharge The pharynx is clear without lesions or redness or swelling or exudate Neck is supple Chest clear to auscultation bilateral Abdomen soft nontender Extremities full range of motion x4 The right leg had multiple reddish patches which were nontender no surrounding erythema they were on the anterior burgess there was mild pitting edema in both legs and right leg was somewhat more swollen than the left, swelling was very mild There was no significant calf tenderness Neuro no focal deficits Course Course Course Narrative: This is an RME: Additional HPI, ROS, PE not included below will be deferred to primary provider. This is a [id number], with a past medical history of anxiety, depression, GERD, HTN, osteoarthritis, ovarian cancer, peptic ulcer, uterine cancer, slightly itchy/painful rash on lower right leg x 4-5 days. Hx of similar rashes in right leg. Has been using hydrocortisone cream on rash without any relief. No calf tenderness. Edema noted to right lower leg. Plan: Labs ordered. 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 04/19/23 14:06 04/19/23 14:06 Labs: Lab Results 04/19/23 04/19/23 Range/Units 14:06 14:06 WBC 5.5 (4.8-10.8) X10*3/uL RBC 2.70 L (4.20-5.50) X10*6/uL Hgb 10.5 L (12.0-16.0) g/dl Hct 29.4 L (37.0-47.0) % MCV 108.9 H (80.0-98.0) fL MCH 38.9 H (27.0-33.0) pg MCHC 35.7 H (31.0-35.0) g/dl RDW 15.3 (11.0-16.0) % Plt Count 196 (160-400) X10*3/uL MPV 10.8 (9.4-12.3) fL Immature Gran % (Auto) 0.5 H (0.0-0.4) % Neut % (Auto) 77.0 H (45-73) % Lymph % (Auto) 17.0 L (20-40) % [place] % (Auto) 4.9 (2-11) % Eos % (Auto) 0.4 (0-4) % Baso % (Auto) 0.2 (0-2) % Lymph # (Auto) 0.9 L (1.2-4.9) X10*3/uL [place] # (Auto) 0.3 (0.1-1.2) X10*3/uL Eos # (Auto) 0.0 (0.0-0.4) X10*3/uL Baso # (Auto) 0.0 (0.0-0.2) X10*3/uL Abs Immat Gran (auto) 0.03 (0.00-0.03) X10*3/uL Absolute Neuts (auto) 4.2 (2.0-8.3) x10*3/uL Absolute Nucleated RBC 0.040 H (0.0-0.012) X10*3/uL Nucleated RBC % (auto) 0.7 H (0.0-0.2) /100WBC Sodium 142 (135-145) mmol/L Potassium 4.3 (3.3-5.1) mmol/L Chloride 110 H (96-108) mmol/L Carbon Dioxide 21 L (22-29) mmol/L Anion Gap 15 (12-20) BUN 14 (9-16) mg/dL Creatinine 0.90 (0.5-1.4) mg/dL Estim Creat Clear Calc 50.6 Estimated GFR > 60 Random Glucose 166 H (60-115) mg/dL Calcium 10.2 D (8.4-10.2) mg/dL Total Bilirubin 0.8 (0.0-1.0) mg/dL Direct Bilirubin 0.2 (0.0-0.5) mg/dL AST 16 (5-31) U/L ALT 14 (0-31) U/L Alkaline Phosphatase 71 (39-117) U/L Total Protein 7.4 (6.5-8.0) g/dL Albumin 4.5 (3.5-5.0) g/dL Discharge Plan Discharge Clinical Impression: Diabetic dermopathy Additional Instructions: ultrasound was normal, no blood clot There were no acute findings in the blood tests tests did show that you have had a mild anemia for some time and this should be followed with your doctor It is likely that the rash on her legs is a rash from diabetes which is not uncommon, but we are not sure so follow with your doctor and you may need a referral to a steel construction worker If needed you can try Claritin which may help with the itch, but will not cure this rash Return any time for any worse condition including spreading redness any sign of infection worse pain and swelling fever any worse condition or any concerns Prescriptions: New loratadine [Allerclear] 10 mg tablet 10 mg PO DAILY PRN (Reason: itch) Qty: 10 0RF No Action atorvastatin 40 mg Tablet 40 mg PO BEDTIME enalapril maleate 20 mg Tablet 20 mg PO DAILY clonazepam 1 mg Tablet 1 mg PO BEDTIME atenolol 25 mg Tablet 25 mg PO BEDTIME metformin 500 mg Tablet 250 mg PO DAILY levothyroxine 50 mcg Tablet 50 mcg PO DAILY lidocaine 5 % adhesive patch,medicated 1 patch topical DAILY PRN (Reason: pain) Qty: 30 0RF Rx Instructions: leave on most painful area for up to 12 hrs aripiprazole 2 mg tablet 1 tab PO BEDTIME Certavite-Antioxidant 18-400 mg-mcg tablet 1 tab PO QAM metronidazole 500 mg tablet 500 mg PO BID 10 Days Qty: 20 0RF calcium carbonate-vitamin D3 600 mg(1,500mg) -800 unit tablet 1 tab PO BID omeprazole 20 mg capsule,delayed release(DR/EC) 20 mg PO DAILY (DME) lancets 33 gauge misc See Rx Instructions PO BID Qty: 100 Rx Instructions: As directed alcohol swabs Pads, Medicated topical BID (DME) blood sugar diagnostic Strip See Rx Instructions Not Applicable BID Qty: 10 Rx Instructions: As directed metronidazole [Metrogel Vaginal] 0.75 % gel 1 appful vaginal BID 5 Days Qty: 70 2RF acetaminophen 650 mg tablet extended release 650 mg PO TID amlodipine 10 mg tablet 10 mg PO DAILY aripiprazole 5 mg tablet 5 mg PO QAM clonazepam 0.5 mg tablet 0.5 mg PO
== END 2023-04-19 19:03 | disposition home or self-care (01) ==
PROVIDERS: Emergency Provider Emergency Medicine Emergency Medical Services; PCP General Practice
DX: E11.620 Type 2 diabetes mellitus with diabetic dermatitis (principal); R60.0 Localized edema; E11.9 Type 2 diabetes mellitus without complications; I10 Essential (primary) hypertension; E78.5 Hyperlipidemia, unspecified; Z79.84 Long term (current) use of oral hypoglycemic drugs; Z79.899 Other long term (current) drug therapy
CPT/HCPCS: 36415; 80048; 80076; 85025; 93971; 99282; 99284

== ENCOUNTER 2023-05-24 13:15 | Outpatient (AMB) | payer OTHER, SELFPAY ==
--- NOTE | 2023-05-24 13:37 | MHC.OFFVIS ---
Intake Intake Visit Reasons: Urge incontinence- follow up/US(set) Intake Note: Patient presents today for follow up urge incontinence/ultrasound (imaging 04/03/23) Urology Medications: None Blood Thinner: none PVR: 0ml's Accompanied by: Self / Same As Patient Allergies No Known Allergies Allergy (Verified 05/24/23 17:59) Medication List - Last Reconciled 05/24/23 by KATE Eric-JOHN acetaminophen ER 650 mg PO TID alcohol swabs pad topical BID amlodipine 10 mg PO DAILY aripiprazole 1 tab PO BEDTIME aripiprazole 5 mg PO QAM atenolol 25 mg PO BEDTIME atorvastatin 40 mg PO BEDTIME blood sugar diagnostic As directed calcium carbonate-vitamin D3 600 mg-20 mcg (800 unit) 1 tab PO BID clonazepam 1 mg PO BEDTIME clonazepam 0.5 mg PO enalapril maleate 20 mg PO DAILY lancets As directed levothyroxine 50 mcg PO DAILY lidocaine 5% 1 patch topical DAILY PRN loratadine (Allerclear) 10 mg PO DAILY PRN metformin 250 mg PO DAILY metronidazole 500 mg PO BID 10 days metronidazole 0.75%(37.5mg/5gram) (Metrogel Vaginal) 1 appful vaginal BID 5 days [id number] acid 18-400 mg-mcg (Certavite-Antioxidant) 1 tab PO QAM olaparib (Lynparza) 0 mg PO omeprazole 20 mg PO DAILY triamcinolone acetonide 0.1% topical HPI HPI Comments History of Present Illness Details Yandy is a pleasant 72 year old Maltese speaking patient of Dr. Hood. She has a past medical history of anxiety, arthritis, back pain, depression, diabetes, hypercholesteremia, GERD, hypertension, osteoarthritis, ovarian and uterine cancer, and hypothyroidism. Patient presents to the office today for a follow up her urinary issues. When asked patient reports to be doing well. She discusses following up with Dr. Albarran for her history of ovarain and uterine cancer and has been cancer free for close to two years now.She becomes tearful when discussing her history of cancer. Of note, patient was seen approximately 4 months ago at which time she was enquiring further education regarding InterStim. Since her last office visit she has since met with [employer] Kayla Davis and has gone through multiple programmings and continues to feel InterStim is not working for her and would like to have it removed. In review of patient's chart it appears back in 2020 patient was also wanting this removed and met with Dr. Patel however she discusses feeling whomever was helping with interpreting was not interpreting correctly. Discussed obtaining imaging for device and lead placement and will schedule for device removal as this is what she would like done. Discussed at length potential worsening urinary symptoms with out device. She has a longstanding history of failed overactive bladder medications as well as failed Botox and tibial nerve stimulation. She otherwise offers no concerns or complaints at this time. Discussed at length importance of managing diabetes to further assist urinary symptoms as well as for overall health and well being. In office urinalysis results reviewed with the patient today. PVR 0 mL. She otherwise offers no issues or concerns at this time. [facility] Medical History Acute hemorrhoid Anxiety Arthritis Back pain Depression Diabetes Elevated cholesterol GERD (gastroesophageal reflux disease) HTN (hypertension) Osteoarthritis Ovarian cancer Peptic ulcer Thyroid disease Uterine cancer Surgical History H/O cataract extraction H/O colonoscopy H/O cystoscopy H/O excision of mass H/O: hysterectomy History of esophagogastroduodenoscopy (EGD) Hx of tonsillectomy Previous back surgery Family History Mother HTN (hypertension) Diabetes Father HTN (hypertension) Sister Diabetes Social History Household Members: None Housing: Apartment Do you presently have visiting nurse or other home services: Yes ([facility]AX[facility]) Alcohol intake: never Patient Tobacco Use Status: Never used Tobacco Advance Directives Date on File: 02/15/22 service: No Current occupational status: disabled Gender identity: Female Female Reproductive History Menstrual Age of Menarche: 10 Review of Systems Const Reports as per HPI Eyes Reports no additional complaints ENT Reports no additional complaints Card Reports as per HPI Resp Reports no additional complaints GI Reports as per HPI Reports as per HPI Musc Reports as per HPI Neuro Reports as per HPI Psych Reports as per HPI Endo Reports as per HPI Physical Exam Const General: cooperative, comfortable, no acute distress, well developed, alert and awake Orientation/consciousness: patient oriented x3 Limitations: no limitations HEENT Head: Yes normal to inspection, Yes normocephalic and Yes atraumatic Ears: hearing grossly normal bilaterally Eyes General: appearance normal, both eyes and all related structures Neck Neck: Yes normal visual inspection and Yes trachea midline Chest Chest palpation & inspection: normal inspection of the chest Resp Effort & Inspection: normal respiratory effort and able to speak in complete sentences Cardio Rate: regular rate GI Inspection: Yes normal to inspection General: Yes no CVA tenderness Back/Spine/Pelvis Back: no CVA tenderness Skin General skin exam: no rashes or lesions noted Neuro General: patient oriented x3 Extrem General: Yes normal to inspection Psych Appearance: grossly normal and well kempt Mental Status: mental status grossly normal Speech and movement: Normal speech and movement present and Clear speech present Affect: normal affect (emotional ) Attitude: cooperative Thought process: Normal thought process present Thought content: Normal thought content present Insight: Fair insight present (Psych) Judgement: Fair judgement present (Psych) Results AMB Urinalysis, Automated UA Leukoctes 0 [place]/uL Last Edit by [employer] on 05/24/23 13:54 UA Nitrite Last Edit by [employer] on 05/24/23 13:54 UA Urobilinogen 0.2 mg/dL Last Edit by [employer] on 05/24/23 13:54 UA Protein 0 mg/dL Last Edit by [employer] on 05/24/23 13:54 UA pH 5.5 Last Edit by [employer] on 05/24/23 13:54 UA Blood 25 [place]/uL Last Edit by [employer] on 05/24/23 13:54 UA Specific [place] 1.015 Last Edit by [employer] on 05/24/23 13:54 UA Ketone Negative Last Edit by [employer] on 05/24/23 13:54 UA Bilirubin 0 mg/dL Last Edit by [employer] on 05/24/23 13:54 UA Glucose 0 mg/dL Last Edit by [employer] on 05/24/23 13:54 Results Reviewed Results Reviewed: Laboratory Last Values Urine pH (Auto) 5.5 05/24/23 13:52 Specific [place] (Auto) 1.015 05/24/23 13:52 Urine Protein (Auto) 0 mg/dL 05/24/23 13:52 Glucose (UA)(Auto) 0 mg/dL 05/24/23 13:52 Urine Ketones (Auto) Negative 05/24/23 13:52 Urine Blood (Auto) 25 [place]idan/uL 05/24/23 13:52 Urine Bilirubin (Auto) 0 mg/dL 05/24/23 13:52 Urine Urobilinogen (Auto) 0.2 mg/dL 05/24/23 13:52 Leukocyte Esterase (Auto) 0 [place]/uL 05/24/23 13:52 Assessment & Plan Assessment & Plan (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 These include but are not limited to infection, bleeding, damage to local organs and tissues, need for further interventions. ? Anesthetic risks regarding cardiac arrhythmia, blood clots, and potential mortality were discussed. The patient understands the typical recovery time and the outpatient nature of the procedure. After consideration of these risks the patient gives full informed consent and they wish to move ahead with the procedure. Plan In office urinalysis results reviewed with the patient today. PVR 0 mL. Discussed at length risks versus benefits of removal of InterStim as well as lead removal; this was discussed at length All questions were answered Will obtain imaging for assessment and placement of InterStim and lead. Will schedule for Interstim and lead removal with Dr. Flanagan as discussed. Orders: Orders XR pelvis 1-2V Today N31.8 - Other neuromuscular dysfunction of bladder AMB Urinalysis Automated Today Z13.9 - Encounter for screening, unspecified Coding Level of Care Code Est Pt Level 4 (26226) Diagnoses Bladder hypertonicity N31.8 Urge incontinence N39.41 Urgency of micturition R39.15 Frequency of micturition R35.0
== END 2023-05-24 14:00 ==
PROVIDERS: Visit Provider Nurse Practitioner Family
DX: N31.8 Other neuromuscular dysfunction of bladder (principal); N39.41 Urge incontinence; R35.0 Frequency of micturition
CPT/HCPCS: 99214

== ENCOUNTER 2023-05-24 13:15 | Outpatient (REF) | payer OTHER, SELFPAY ==
--- NOTE | ~2023-05-24 | XR_ITS ---
EXAMINATION: XR PELVIS CLINICAL INFORMATION: Other neuromuscular dysfunction of bladder COMPARISON: None available. TECHNIQUE: AP view of the pelvis. FINDINGS: Neural stimulation device and probe over the right iliac wing and gluteal muscle with lead projecting over the right sacral region at about S3-S4. . No acute osseous abnormality. No fracture. No focal bone destruction. Advanced degenerative spondylosis right hip with joint narrowing, subchondral cystic changes and osteosclerosis and marginal bone spurs. Mild degenerative joint disease of the left hip. The sacroiliac joints are normal. Mild degenerative change of the symphysis pubis. Moderate volume of stool in colon. No abnormally dilated bowel loop. XR/XR pelvis 1-2V IMPRESSION: 1. Neural stimulation device in place. 2. No acute abnormality of pelvis. 3. Advanced degenerative spondylosis of the right hip.
== END 2023-05-24 13:16 | disposition home or self-care (01) ==
LOC: HO.XRAY 13:15
PROVIDERS: PCP General Practice; Visit Provider Nurse Practitioner Family
DX: N31.8 Other neuromuscular dysfunction of bladder (principal); N39.41 Urge incontinence; R35.0 Frequency of micturition
CPT/HCPCS: 72170; 99212

== ENCOUNTER 2023-05-25 15:01 | Outpatient (REF) | payer OTHER, SELFPAY ==
[2023-05-25 17:39] LABS: TSH reflex Free T4 1.69 uIU/mL (0.32-4.0)
== END 2023-05-25 15:02 | disposition home or self-care (01) ==
LOC: HO.HHCL 15:01
PROVIDERS: Visit Provider General Practice
DX: E03.8 Other specified hypothyroidism (principal)
CPT/HCPCS: 36415; 84443

== ENCOUNTER 2023-07-04 11:13 | Emergency (ER) | payer OTHER, SELFPAY ==
--- NOTE | ~2023-07-04 | XR_ITS ---
EXAMINATION: XR RIBS, RIGHT CLINICAL INFORMATION: Right axillary pain COMPARISON: None available. TECHNIQUE: 4 views of the right ribs were obtained. FINDINGS: No focal consolidation. No pneumothorax. Trachea is midline. Cardiac mediastinal silhouette is not enlarged. No large effusion. Soft tissues are unremarkable. Degenerative changes of the thoracolumbar spine. No acute visualized right-sided rib fractures. XR/XR ribs RT min 3V w CXR1V IMPRESSION: 1. No acute cardiopulmonary process. 2. No acute visualized right-sided rib fractures.
--- NOTE | ~2023-07-04 | US_ITS ---
EXAMINATION: ULTRASOUND RIGHT AXILLA CLINICAL INFORMATION: Right axillary mass. COMPARISON: None available. TECHNIQUE: High-frequency linear ultrasound transducer was used to examine the area of clinical concern in the right axilla FINDINGS: No mass or fluid collection is seen US/US extremity nonvascular siddiqui IMPRESSION: No abnormality is seen.
[2023-07-04 11:19] VITALS: BP 173/70; PULSE 82; RESP 18; TEMP 36.6; O2SAT 98; BMI 26.8
--- NOTE | 2023-07-04 11:20 | ED.GENADULT ---
HPI - General Adult General Chief complaint: General Medical Stated complaint: r side and shoulder pain Time Seen by Provider: 07/04/23 16:07 Source: patient, RN notes reviewed and old records reviewed Mode of arrival: ambulatory History of Present Illness HPI narrative: 73 year old female w/PMHx Uterine/ovarian CA, OA, DM, GERD, Anxiety, depression, HTN, c/o intermittent right axillary pain x2 days. denies injury/fall/trauma, fever, chills, CP/SOB, LE edema, redness, drainage. Denies breast pain, nipple discharge/skin changes Related Data Home Medications Medication Instructions Recorded Confirmed atenolol 25 mg tablet 25 mg PO BEDTIME 07/08/20 07/24/21 atorvastatin 40 mg tablet 40 mg PO BEDTIME 07/08/20 07/24/21 clonazepam 1 mg tablet 1 mg PO BEDTIME 07/08/20 07/24/21 enalapril maleate 20 mg tablet 20 mg PO DAILY 07/08/20 07/24/21 levothyroxine 50 mcg tablet 50 mcg PO DAILY 07/08/20 07/24/21 metformin 500 mg tablet 250 mg PO DAILY 07/08/20 07/24/21 alcohol swabs pad topical BID diabetes mellitus 07/22/20 12/20/20 blood sugar diagnostic #10 ea 07/22/20 12/20/20 calcium carbonate 600 mg-vitamin 1 tab PO BID 07/22/20 07/24/21 D3 20 mcg (800 unit) tablet lancets 33 gauge #100 ea 07/22/20 12/20/20 omeprazole 20 mg capsule,delayed 20 mg PO DAILY 07/22/20 07/24/21 release aripiprazole 2 mg tablet 1 tab PO BEDTIME 07/24/21 07/24/21 multivitamin-ferrous 1 tab PO QAM 07/24/21 07/24/21 fumarate-folic acid 18 mg-400 mcg tablet (Certavite-Antioxidant) acetaminophen 650 mg 650 mg PO TID 01/31/23 tablet,extended release amlodipine 10 mg tablet 10 mg PO DAILY 01/31/23 aripiprazole 5 mg tablet 5 mg PO QAM 01/31/23 clonazepam 0.5 mg tablet 0.5 mg PO 01/31/23 olaparib 150 mg tablet (Lynparza) 0 mg PO 05/24/23 triamcinolone acetonide 0.1 % topical 05/24/23 topical ointment Previous Rx's Medication Instructions Recorded metronidazole 0.75 % (37.5 mg/5 1 appful vaginal BID 5 days #70 10/22/20 gram) vaginal gel (Metrogel grams Vaginal) metronidazole 500 mg tablet 500 mg PO BID 10 days #20 tabs 07/26/21 lidocaine 5 % topical patch 1 patch topical DAILY PRN pain #30 02/15/22 ea loratadine 10 mg tablet 10 mg PO DAILY PRN itch #10 tabs 04/19/23 (Allerclear) Allergies Allergy/AdvReac Type Severity Reaction Status Date / Time No Known Allergies Allergy Verified 07/04/23 11:19 Review of Systems Review of Systems: Constitutional: No Fever, No Chills, No Fatigue, No Malaise ENT/Mouth: No Ear Pain, No Nasal Congestion, No sore throat, No Rhinorrhea, No Swallowing Difficulty Eyes: No Eye Pain, No Swelling, No Redness, No Vision Changes Cardiovascular: No Chest Pain, No SOB, No Edema Respiratory: No Cough, No Sputum, No Dyspnea Gastrointestinal: No Nausea, No Vomiting, No Diarrhea, No Constipation, No Abdominal pain Genitourinary: No Dysuria, No Urinary Frequency, No Hematuria, No Flank Pain Musculoskeletal: +axillary pain, No Myalgias, No Joint Swelling Skin: +Skin Lesions, No rash Neuro: No Weakness, No Numbness, No Headache Yes all other systems are reviewed and are negative Constitutional: Constitutional: Reports as per [facility] Past Medical History Attestation statement: The following information was validated with the patient. Source: old records reviewed Medical History Uterine cancer Ovarian cancer Acute hemorrhoid Osteoarthritis Back pain Arthritis Thyroid disease Diabetes GERD (gastroesophageal reflux disease) Peptic ulcer Anxiety Depression Elevated cholesterol HTN (hypertension) Surgical History Previous back surgery H/O: hysterectomy H/O cystoscopy Hx of tonsillectomy H/O cataract extraction History of esophagogastroduodenoscopy (EGD) H/O colonoscopy H/O excision of mass Family History Family History Mother HTN (hypertension) Diabetes Father HTN (hypertension) Sister Diabetes Social History Social History Household Members: None Housing: Apartment Do you presently have visiting nurse or other home services: Yes ([facility]) Alcohol intake: never Patient Tobacco Use Status: Never used Tobacco Advance Directives: Yes Advance Directives on File: Yes Advance Directives Date on File: 02/15/22 service: No Current occupational status: disabled Gender identity: Female Physical Exam ED Vital Signs: Vital Signs - 24 hr 07/04/23 11:19 07/04/23 16:12 Temperature 98 F 97.3 F Pulse Rate 82 81 Respiratory Rate 18 18 Blood Pressure 173/70 H 167/60 H Pulse Oximetry 98 100 Oxygen Delivery Method Room Air Room Air BMI result Body Mass Index 26.8 Const General: cooperative, healthy appearing, no acute distress, alert and awake Orientation/consciousness: patient oriented x3 Limitations: no limitations HENMT Head: Yes normal to inspection and Yes atraumatic Ears: hearing grossly normal bilaterally General nose exam: Normal external nose present Face and sinus: Yes normal facial exam Eyes General: appearance normal, both eyes and all related structures EOM: EOMs intact bilaterally Neck Neck: Yes normal visual inspection and Yes no meningeal signs Chest Other: Right axilla without swelling, erythema, palpable lump, flexion/induration or lymphadenopathy. Small area of tenderness. Ribs nontender. No flail chest. No crepitus Breast exam WNL Chest palpation & inspection: normal inspection of the chest Breast/axilla inspection: normal inspection of the breasts and normal inspection of the axillae Breast/axilla palpation: normal palpation of the breasts, normal palpation of the axillae and no axillary lymphadenopathy Resp Effort & Inspection: normal respiratory effort and no respiratory distress Auscultation: clear to auscultation bilaterally, no crackles and no wheezes Cardio Rate: regular rate Heart sounds: S1 normal heart sound present and S2 normal heart sound present GI Inspection: Yes normal to inspection Palpation (GI): Soft to palpation, nontender, no guarding and not rigid General: Yes no CVA tenderness Back/Spine/Pelvis Back: no CVA tenderness Skin Rashes: no rashes Wounds: no wounds Neuro General: patient oriented x3, tone normal and no meningeal signs Cranial nerves: Yes CN's II-XII intact bilaterally Gait exam (Neuro): Normal gait present Extrem General: Yes normal to inspection Course Course Course Narrative: This is a rapid medical exam: Additional HPI, ROS, PE not included below will be deferred to primary provider. Patient is a 73-year-old Beninese-speaking female presenting to the emergency department with complaint of right axillary pain for the past 3 days, states pain comes and goes. Denies any fall or other trauma. Denies cough or other respiratory symptoms. Pain worse with palpation, no palpable lymphadenopathy. Plan: x-ray, U/S, swab for flu/Covid -1646--COVID and influenza negative XR ribs RT min 3V w CXR1V IMPRESSION: 1. No acute cardiopulmonary process. 2. No acute visualized right-sided rib fractures. US extremity nonvascular siddiqui IMPRESSION: No abnormality is seen. -180--chronic anemia. Troponin negative. Labs otherwise reassuring Discussed with patient results and recommended mammogram/close PCP follow-up Results discussed with patient including worrisome signs and symptoms and strict return precautions, and when to return to the emergency department. They verbalized understanding and feel safe for discharge at this time. Medications Administered Discontinued Medications Generic Name Dose Route Start Last Admin Trade Name Freq PRN Reason Stop Dose Admin Acetaminophen 650 mg 07/04/23 16:28 07/04/23 17:18 Acetaminophen 325 Mg Tablet PO 07/04/23 16:29 650 mg ONCE ONE Administration Medical Decision Making Medical Decision Making MDM Narrative: 73 year old female w/PMHx Uterine/ovarian CA, OA, DM, GERD, Anxiety, depression, HTN, c/o intermittent right axillary pain x2 days. On exam vital signs stable, in ED, nontoxic appearing, right axilla without appreciable erythema/lump or deformity. Small area tenderness. Breast exam WNL, lungs CTA, no reproducible rib tenderness. Concern for cyst vs ?Early abscess vs small lymphadenopathy. No evidence of cellulitis, drainable collection. Lower suspicion for rib fracture/contusion, pneumonia, ACS/PE Plan: EKG, labs, CXR, axilla ultrasound Please refer to course for remaining clinical decision making, interpretation of labs/imaging results, and discussions with consultants and/or family members. Differential Diagnosis Differential Diagnoses: The differential diagnosis associated with the presentation includes As above Admission/Observation Consideration of admission/observation: Escalation of care including admission/observation considered Lab Data MDM Lab Attestation statement: I reviewed the patient's lab results. 07/04/23 16:59 07/04/23 16:59 Labs: Lab Results 07/04/23 07/04/23 07/04/23 Range/Units 11:27 16:59 17:54 WBC 4.3 L (4.8-10.8) X10*3/uL RBC 2.55 L (4.20-5.50) X10*6/uL Hgb 9.8 L (12.0-16.0) g/dl Hct 28.0 L (37.0-47.0) % MCV 109.8 H (80.0-98.0) fL MCH 38.4 H (27.0-33.0) pg MCHC 35.0 (31.0-35.0) g/dl RDW 15.5 (11.0-16.0) % Plt Count 200 (160-400) X10*3/uL MPV 10.8 (9.4-12.3) fL Immature Gran % (Auto) 0.0 (0.0-0.4) % Neut % (Auto) 64.8 (45-73) % Lymph % (Auto) 26.5 (20-40) % [place] % (Auto) 7.8 (2-11) % Eos % (Auto) 0.7 (0-4) % Baso % (Auto) 0.2 (0-2) % Lymph # (Auto) 1.2 (1.2-4.9) X10*3/uL [place] # (Auto) 0.3 (0.1-1.2) X10*3/uL Eos # (Auto) 0.0 (0.0-0.4) X10*3/uL Baso # (Auto) 0.0 (0.0-0.2) X10*3/uL Abs Immat Gran (auto) 0.00 (0.00-0.03) X10*3/uL Absolute Neuts (auto) 2.8 (2.0-8.3) x10*3/uL Absolute Nucleated RBC 0.000 (0.0-0.012) X10*3/uL Nucleated RBC % (auto) 0.0 (0.0-0.2) /100WBC Sodium 142 (135-145) mmol/L Potassium 4.2 (3.3-5.1) mmol/L Chloride 112 H (96-108) mmol/L Carbon Dioxide 25 (22-29) mmol/L Anion Gap 9 L (12-20) BUN 14 (9-16) mg/dL Creatinine 0.79 (0.5-1.4) mg/dL Estim Creat Clear Calc 55.3 Estimated GFR > 60 POC Glucose 101 (60-115) mg/dL Random Glucose 121 H (60-115) mg/dL Calcium 9.8 (8.4-10.2) mg/dL Total Bilirubin 0.7 (0.0-1.0) mg/dL Direct Bilirubin 0.2 (0.0-0.5) mg/dL AST 14 (5-31) U/L ALT 9 (0-31) U/L Alkaline Phosphatase 67 (39-117) U/L Troponin I High Sens < 2.7 (<3.5-17.0) ng/L Total Protein 6.8 (6.5-8.0) g/dL Albumin 4.1 (3.5-5.0) g/dL COVID-19 (DAVID) Negative (Negative) COVID-19 Clin Com See Note Influenza Type A ([facility]) Negative (Negative) Influenza Type B ([facility]) Negative (Negative) Influenza A & B Note See Note Independent Interpretation I performed an independent interpretation of an: EKG Radiology Impression Discussion of test interpretation with radiology: I have reviewed the radiologist's reading. External Record Review External record reviewed: Inpatient record, Office record, Outpatient record, Prior outpatient labs, Prior outpatient radiology, Primary care record and Outside ED record Tests considered The following testing was considered but not selected: As above Prescription Management I considered prescription management with: Pain Medication and Antibiotic Discharge Plan Discharge Clinical Impression: Axillary pain Patient Disposition: Home, Self-Care Instructions: Arm Pain (ED) Additional Instructions: Your blood work, x-ray, and ultrasound were reassuring Please follow up with her doctor, you may need an outpatient mammogram If pain persists or worsens, he develops swelling/redness or fever return to the ED Radha an?lisis de radha, radiograf?as y ecograf?as fueron tranquilizadores. Por favor larry un seguimiento con boykin m?dico, es posible que necesite maggi mamograf?a ambulatoria. Si el dolor persiste o empeora, presenta hinchaz?n/enrojecimiento o fiebre, regrese al servicio de urgencias. Prescriptions: No Action atorvastatin 40 mg Tablet 40 mg PO BEDTIME enalapril maleate 20 mg Tablet 20 mg PO DAILY clonazepam 1 mg Tablet 1 mg PO BEDTIME atenolol 25 mg Tablet 25 mg PO BEDTIME metformin 500 mg Tablet 250 mg PO DAILY levothyroxine 50 mcg Tablet 50 mcg PO DAILY lidocaine 5 % adhesive patch,medicated 1 patch topical DAILY PRN (Reason: pain) Qty: 30 0RF Rx Instructions: leave on most painful area for up to 12 hrs aripiprazole 2 mg tablet 1 tab PO BEDTIME Certavite-Antioxidant 18-400 mg-mcg tablet 1 tab PO QAM metronidazole 500 mg tablet 500 mg PO BID 10 Days Qty: 20 0RF loratadine [Allerclear] 10 mg tablet 10 mg PO DAILY PRN (Reason: itch) Qty: 10 0RF calcium carbonate-vitamin D3 600 mg(1,500mg) -800 unit tablet 1 tab PO BID omeprazole 20 mg capsule,delayed release(DR/EC) 20 mg PO DAILY (DME) lancets 33 gauge misc See Rx Instructions PO BID Qty: 100 Rx Instructions: As directed alcohol swabs Pads, Medicated topical BID (DME) blood sugar diagnostic Strip See Rx Instructions Not Applicable BID Qty: 10 Rx Instructions: As directed metronidazole [Metrogel Vaginal] 0.75 % gel 1 appful vaginal BID 5 Days Qty: 70 2RF acetaminophen 650 mg tablet extended release 650 mg PO TID amlodipine 10 mg tablet 10 mg PO DAILY aripiprazole 5 mg tablet 5 mg PO QAM clonazepam 0.5 mg tablet 0.5 mg PO Lynparza 150 mg tablet 0 mg PO triamcinolone acetonide 0.1 % ointment topical Referrals: Phylicia Madrigal MD [Primary Care Provider] - 3 days Interventions: ED Discharge Assessment Last Done: 07/04/23 18:22 Discharge Date/Time: 07/04/23 18:23 Print Language: Beninese
[2023-07-04 12:02] LABS: IDNOW Serial# BCCEAD1C; Influenza A Negative (Negative); Influenza B2 Negative (Negative)
[2023-07-04 12:03] LABS: COVID-19 Test Negative (Negative); IDNOW Serial# 9DB6401D
[2023-07-04 16:12] VITALS: BP 167/60; PULSE 81; RESP 18; TEMP 36.3; O2SAT 100
--- NOTE | 2023-07-04 16:13 | ECG_ITS ---
Test Reason : RT SHOULDER PAIN Blood Pressure : / mmHG Vent. Rate : 066 BPM Atrial Rate : 066 BPM P-R Int : 128 ms QRS Dur : 084 ms QT Int : 420 ms P-R-T Axes : 056 046 046 degrees QTc Int : 440 ms Normal sinus rhythm Normal ECG When compared with ECG of 04-SEP-2019 12:52, Premature ventricular complexes are no longer Present Referred By: Luz Ramey Electronically Signed By:ALKA LUQUE
--- NOTE | 2023-07-04 16:22 | PC.NURSE ---
Pt placed on bedside monitor. Provider at bedside with dog warden
[2023-07-04 17:05] LABS: MANUAL DIFF FLAG NO
[2023-07-04 17:07] LABS: Basophils Percent Auto 0.2 % (0-2); Eosinophils Percent Auto 0.7 % (0-4); Hemoglobin 9.8 g/dl (12.0-16.0); Lymphocytes Absolute Auto 1.2 X10*3/uL (1.2-4.9); Lymphocytes Percent Auto 26.5 % (20-40); Mean Corpuscular Hemoglobin 38.4 pg (27.0-33.0); Mean Corpuscular Volume 109.8 fL (80.0-98.0); Mean Platelet Volume 10.8 fL (9.4-12.3); Monocytes Absolute Auto 0.3 X10*3/uL (0.1-1.2); Monocytes Percent Auto 7.8 % (2-11); Neutrophils Absolute Auto 2.8 x10*3/uL (2.0-8.3); Neutrophils Percent Auto 64.8 % (45-73); Platelet Count 200 X10*3/uL (160-400); Red Blood Count 2.55 X10*6/uL (4.20-5.50); Red Cell Distribution Width 15.5 % (11.0-16.0); White Blood Count 4.3 X10*3/uL (4.8-10.8)
[2023-07-04] MEDS: Acetaminophen 325 MG TABLET 650 MG PO (17:18)
[2023-07-04 17:25] LABS: Alanine Aminotransferase 9 U/L (0-31); Albumin Level 4.1 g/dL (3.5-5.0); Alkaline Phosphatase 67 U/L (39-117); Anion Gap 9 (12-20); Aspartate Amino Transferase 14 U/L (5-31); Bilirubin Direct 0.2 mg/dL (0.0-0.5); Bilirubin Total 0.7 mg/dL (0.0-1.0); Blood Urea Nitrogen 14 mg/dL (9-16); Calcium 9.8 mg/dL (8.4-10.2); Carbon Dioxide 25 mmol/L (22-29); Chloride 112 mmol/L (96-108); Creatinine Clr Calc Pharmacy 55.3; Estimated Glomerular Filt Rate > 60; Glucose Random 121 mg/dL (60-115); Potassium 4.2 mmol/L (3.3-5.1); Sodium 142 mmol/L (135-145); Total Protein 6.8 g/dL (6.5-8.0)
[2023-07-04 17:32] LABS: Troponin-I High Sensitivity < 2.7 ng/L (<3.5-17.0)
[2023-07-04 17:58] LABS: Glucose, Whole Blood 101 mg/dL (60-115)
== END 2023-07-04 18:23 | disposition home or self-care (01) ==
PROVIDERS: Physician Assistant; Registered Nurse Emergency; Emergency Provider Emergency Medicine Emergency Medical Services; PCP Pediatrics
DX: M79.12 Myalgia of auxiliary muscles, head and neck (principal); R07.81 Pleurodynia; M25.511 Pain in right shoulder; Z20.822 Contact with and (suspected) exposure to COVID-19; Z20.828 Contact with and (suspected) exposure to other viral communicable diseases; Z79.899 Other long term (current) drug therapy
CPT/HCPCS: 36415; 71101; 76882; 80048; 80076; 82947; 84484; 85025; 87502; 87635; 93005; 99284; 99285

== ENCOUNTER 2023-08-03 10:38 | Outpatient (AMB) | payer OTHER, SELFPAY ==
--- NOTE | 2023-08-03 10:46 | MHC.OFFVIS ---
Intake Intake Visit Reasons: H&P (interstim removal 08/13) Intake Note: Patient presents today for H&P interstim removal Urology Medications: None Blood Thinner: none Career Orientation Teacher Required: Yes Career Orientation Teacher Name: Mehrdad Accompanied by: Unknown Allergies No Known Allergies Allergy (Verified 08/05/23 20:58) Medication List - Last Reconciled 08/05/23 by ELADIA Eric acetaminophen ER 650 mg PO TID alcohol swabs pad topical BID amlodipine 10 mg PO DAILY aripiprazole 1 tab PO BEDTIME aripiprazole 5 mg PO QAM atenolol 25 mg PO BEDTIME atorvastatin 40 mg PO BEDTIME blood sugar diagnostic As directed calcium carbonate-vitamin D3 500 mg-10 mcg (400 unit) 1 tab PO DAILY calcium carbonate-vitamin D3 600 mg-20 mcg (800 unit) 1 tab PO BID clonazepam 1 mg PO BEDTIME clonazepam 0.5 mg PO enalapril maleate 20 mg PO DAILY lancets As directed levothyroxine 50 mcg PO DAILY lidocaine 5% 1 patch topical DAILY PRN loratadine (Allerclear) 10 mg PO DAILY PRN metformin 250 mg PO DAILY metronidazole 500 mg PO BID 10 days metronidazole 0.75%(37.5mg/5gram) (Metrogel Vaginal) 1 appful vaginal BID 5 days iselxliqrvfx-pdtn-kslre acid 18-400 mg-mcg (Certavite-Antioxidant) 1 tab PO QAM olaparib (Lynparza) 0 mg PO omeprazole 20 mg PO DAILY triamcinolone acetonide 0.1% topical HPI HPI Comments History of Present Illness Details Yandy is a pleasant 73 year old Korean speaking patient of Dr. Hood was accompanied by her niece at today's office visit. She has a past medical history of anxiety, arthritis, back pain, depression, diabetes, hypercholesteremia, GERD, hypertension, osteoarthritis, ovarian and uterine cancer, and hypothyroidism. Patient presents to the office today for a follow up her urinary issues. When asked patient reports to be doing and feeling well. Of note, patient was seen approximately 2 months ago at which time a pelvis x-ray was ordered for further assessment evaluation of InterStim lead. Neural stimulation device and probe over the right iliac wing and gluteal muscle with lead projecting over the right sacral region at about S3-S4. Patient continues to discuss wanting removal of InterStim as she does not feel she has had any improvement in urinary symptoms with InterStim. Discussed risks and benefits at length of InterStim removal. Patient has met with scrible on multiple occasions to further assess and educate on programming. Discussed at length potential worsening urinary symptoms with out device. She has a longstanding history of failed overactive bladder medications as well as failed Botox and tibial nerve stimulation. She otherwise offers no concerns or complaints at this time. Discussed at length importance of managing diabetes to further assist urinary symptoms as well as for overall health and well being. In office urinalysis results reviewed with the patient today. PVR 0 mL. She otherwise offers no issues or concerns at this time. [facility] Medical History Uterine cancer Ovarian cancer Acute hemorrhoid Osteoarthritis Back pain Arthritis Thyroid disease Diabetes GERD (gastroesophageal reflux disease) Peptic ulcer Anxiety Depression Elevated cholesterol HTN (hypertension) Surgical History Previous back surgery H/O: hysterectomy H/O cystoscopy Hx of tonsillectomy H/O cataract extraction History of esophagogastroduodenoscopy (EGD) H/O colonoscopy H/O excision of mass Family History Mother HTN (hypertension) Diabetes Father HTN (hypertension) Sister Diabetes Social History Household Members: None Housing: Apartment Do you presently have visiting nurse or other home services: Yes ([employer]) Alcohol intake: never Patient Tobacco Use Status: Never used Tobacco Advance Directives Date on File: 02/15/22 service: No Current occupational status: disabled Gender identity: Female Female Reproductive History Menstrual Age of Menarche: 10 Review of Systems Const Reports as per HPI Eyes Reports no additional complaints ENT Reports no additional complaints Card Reports as per HPI Resp Reports no additional complaints GI Reports as per HPI Reports as per HPI Musc Reports as per HPI Neuro Reports as per HPI Psych Reports as per HPI Endo Reports as per HPI Physical Exam Const General: cooperative, healthy appearing, comfortable, no acute distress, well developed, alert and awake Orientation/consciousness: patient oriented x3 Limitations: no limitations HEENT Head: Yes normal to inspection, Yes normocephalic and Yes atraumatic Ears: hearing grossly normal bilaterally Eyes General: appearance normal, both eyes and all related structures Neck Neck: Yes normal visual inspection and Yes trachea midline Chest Chest palpation & inspection: normal inspection of the chest Resp Effort & Inspection: normal respiratory effort and able to speak in complete sentences Cardio Rate: regular rate GI Inspection: Yes normal to inspection General: Yes no CVA tenderness Back/Spine/Pelvis Back: no CVA tenderness Skin General skin exam: no rashes or lesions noted Neuro General: patient oriented x3 Extrem General: Yes normal to inspection Psych Appearance: grossly normal and well kempt Mental Status: mental status grossly normal Speech and movement: Normal speech and movement present and Clear speech present Affect: normal affect (emotional ) Attitude: cooperative Thought process: Normal thought process present Thought content: Normal thought content present Insight: Fair insight present (Psych) Judgement: Fair judgement present (Psych) Results AMB Urinalysis, Automated UA Leukoctes 0 Asia/uL Last Edit by Directly on 08/03/23 11:01 UA Nitrite Negative Last Edit by Directly on 08/03/23 11:01 UA Urobilinogen 0.2 mg/dL Last Edit by Directly on 08/03/23 11:01 UA Protein 0 mg/dL Last Edit by Directly on 08/03/23 11:01 UA pH 5.0 Last Edit by Directly on 08/03/23 11:01 UA Blood 25 Aidan/uL Last Edit by Directly on 08/03/23 11:01 UA Specific [place] 1.015 Last Edit by Directly on 08/03/23 11:01 UA Ketone Negative Last Edit by Directly on 08/03/23 11:01 UA Bilirubin 0 mg/dL Last Edit by Directly on 08/03/23 11:01 UA Glucose 0 mg/dL Last Edit by Directly on 08/03/23 11:01 Results Reviewed Results Reviewed: Laboratory Last Values Urine pH (Auto) 5.0 08/03/23 10:51 Specific [place] (Auto) 1.015 08/03/23 10:51 Urine Protein (Auto) 0 mg/dL 08/03/23 10:51 Glucose (UA)(Auto) 0 mg/dL 08/03/23 10:51 Urine Ketones (Auto) Negative 08/03/23 10:51 Urine Blood (Auto) 25 Aidan/uL 08/03/23 10:51 Urine Nitrite (Auto) Negative 08/03/23 10:51 Urine Bilirubin (Auto) 0 mg/dL 08/03/23 10:51 Urine Urobilinogen (Auto) 0.2 mg/dL 08/03/23 10:51 Leukocyte Esterase (Auto) 0 Asia/uL 08/03/23 10:51 EXAMINATION: XR PELVIS CLINICAL INFORMATION: Other neuromuscular dysfunction of bladder COMPARISON: None available. TECHNIQUE: AP view of the pelvis. FINDINGS: Neural stimulation device and probe over the right iliac wing and gluteal muscle with lead projecting over the right sacral region at about S3-S4. . No acute osseous abnormality. No fracture. No focal bone destruction. Advanced degenerative spondylosis right hip with joint narrowing, subchondral cystic changes and osteosclerosis and marginal bone spurs. Mild degenerative joint disease of the left hip. The sacroiliac joints are normal. Mild degenerative change of the symphysis pubis. Moderate volume of stool in colon. No abnormally dilated bowel loop. IMPRESSION: 1. Neural stimulation device in place. 2. No acute abnormality of pelvis. 3. Advanced degenerative spondylosis of the right hip. 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 These include but are not limited to infection, bleeding, damage to local organs and tissues, need for further interventions. ? Anesthetic risks regarding cardiac arrhythmia, blood clots, and potential mortality were discussed. The patient understands the typical recovery time and the outpatient nature of the procedure. After consideration of these risks the patient gives full informed consent and they wish to move ahead with the procedure. Plan In office urinalysis results reviewed with the patient today. Recent imaging results reviewed with the patient today; as noted above. Discussed at length risks versus benefits of removal of InterStim as well as lead removal; this was discussed at length All questions were answered Keep scheduled Interstim and lead removal with Dr. Flanagan as discussed and planned Follow-up status post surgical procedure per Dr. Walker order Orders: Orders AMB Urinalysis Automated 08/03/23 Z13.9 - Encounter for screening, unspecified Patient Instructions: The patient had an opportunity to ask questions regarding the treatment plan. All questions were answered. Physical exam, labs, and imaging were discussed and reviewed in detail. As well as risks, benefits, and discussion of treatment choices. No major barriers to understanding were identified. The patient expressed understanding and agreement with the above treatment plan. The patient was made aware they should contact our office by phone for worsening of their current condition, the appearance of new symptoms, or with any questions or concerns. Compliance is encouraged with any medications and follow up testing that is ordered. It is a privilege to be allowed the opportunity to participate in? your urological care.? Again, if you have any questions or concerns If you have any questions or concerns please do not hesitate to contact me. The office is [phone]. This note is constructed using voice recognition software. While every effort has been made to ensure accuracy soa integration architect errors may have been included. Yours sincerely, ELADIA Eric Coding Level of Care Code Est Pt Level 4 (15851) Diagnoses Urge incontinence N39.41 Urgency of micturition R39.15 Frequency of micturition R35.0 Bladder hypertonicity N31.8 Overactive bladder N32.81
== END 2023-08-03 11:15 | disposition home or self-care (01) ==
PROVIDERS: PCP General Practice; Visit Provider Nurse Practitioner Family
DX: R39.15 Urgency of urination (principal); R35.0 Frequency of micturition; N31.8 Other neuromuscular dysfunction of bladder; N32.81 Overactive bladder
CPT/HCPCS: 99214

== ENCOUNTER → 2023-08-03 10:38 | Outpatient (BNVA) | payer OTHER, SELFPAY | PROVIDERS: PCP General Practice; Visit Provider Nurse Practitioner Family | DX: N39.41 Urge incontinence (principal); N31.8 Other neuromuscular dysfunction of bladder; N32.81 Overactive bladder; R35.0 Frequency of micturition | CPT/HCPCS: 81003; 99212 ==

== ENCOUNTER 2023-08-13 09:18 | Day surgery (SDC) | payer OTHER, SELFPAY ==
[2023-08-09 11:57] VITALS: BMI 27.6
[2023-08-13] VITALS (7 sets, daily range): BP systolic 148–168; BP diastolic 70–94; PULSE 60–80; RESP 18; TEMP 36.5–36.9; O2SAT 98–100
[2023-08-13 11:06] LABS: Glucose, Whole Blood 119 mg/dL (60-115)
--- NOTE | 2023-08-13 12:37 | PC.NURSE ---
IV to left hand inserted by Jose Barney RN. Ultrasound IV also inserted to right AC by Dr. Davies.
[2023-08-13] MEDS: Lactated Ringers 1,000 ML 50 ML IVCONT (12:44)
--- NOTE | 2023-08-13 13:16 | P.CONAN_ITS ---
[facility] Active Problems Active Problems: All Active Problems (Updated 08/09/23 @ 11:56 by Korin García RN) Overactive bladder (Acute) Back pain (Acute) Bilateral primary osteoarthritis of knee (Acute) Anemia (Acute) Endometrial polyp (Acute) Complex cyst of right ovary (Acute) Myoma (Acute) Postmenopausal bleeding (Acute) Vaginal spotting (Acute) Bacterial vaginosis (Acute) Bladder hypertonicity (Acute) Frequency of micturition (Acute) Urgency of micturition (Acute) Urge incontinence (Acute) Diabetes (Acute) Past Medical History Medical History Uterine cancer Ovarian cancer Acute hemorrhoid Osteoarthritis Back pain Arthritis Thyroid disease Diabetes GERD (gastroesophageal reflux disease) Peptic ulcer Anxiety Depression Elevated cholesterol HTN (hypertension) Family History Family History Mother HTN (hypertension) Diabetes Father HTN (hypertension) Sister Diabetes Surgical History Surgical History History of surgery Previous back surgery H/O: hysterectomy H/O cystoscopy Hx of tonsillectomy H/O cataract extraction History of esophagogastroduodenoscopy (EGD) H/O colonoscopy H/O excision of mass History of Problems with Anesthesia: No Social History Social History Household Members: None Housing: Apartment Do you presently have visiting nurse or other home services: Yes ([employer]) Alcohol intake: never Patient Tobacco Use Status: Never used Tobacco Are you DNR?: No Advance Directives: No Advance Directives Information Provided: Yes Advance Directives Date on File: 02/15/22 Nutrition Risks: No Nutritional Risk service: No Current occupational status: disabled Gender identity: Female Meds Allergies Allergy/AdvReac Type Severity Reaction Status Date / Time No Known Allergies Allergy Verified 08/05/23 20:58 Active Medications: Current Medications Lactated Ringer's (Lr) 1,000 mls @ 50 mls/hr IVCONT .Q20H YAA Last Admin: 08/13/23 12:44 Dose: 50 mls/hr Cefazolin Sodium/Dextrose (Ancef) 2 gm in 50 mls @ 100 mls/hr IV PREOP ONE Stop: 08/13/23 13:34 Home Medications Medication Instructions Recorded Confirmed Last Taken Type atenolol 25 mg tablet 25 mg PO BEDTIME 07/08/20 08/09/23 Unknown History atorvastatin 40 mg tablet 40 mg PO BEDTIME 07/08/20 08/09/23 Unknown History clonazepam 1 mg tablet 1 mg PO BEDTIME 07/08/20 08/09/23 Unknown History enalapril maleate 20 mg tablet 20 mg PO DAILY 07/08/20 08/09/23 Unknown History levothyroxine 50 mcg tablet 50 mcg PO DAILY 07/08/20 08/09/23 Unknown History metformin 500 mg tablet 250 mg PO DAILY 07/08/20 08/09/23 Unknown History alcohol swabs pad topical BID diabetes mellitus 07/22/20 12/20/20 Unknown History blood sugar diagnostic #10 ea 07/22/20 12/20/20 Unknown History lancets 33 gauge #100 ea 07/22/20 12/20/20 Unknown History omeprazole 20 mg capsule,delayed 20 mg PO DAILY 07/22/20 08/09/23 Unknown History release aripiprazole 2 mg tablet 1 tab PO BEDTIME 07/24/21 08/09/23 Unknown History multivitamin-ferrous 1 tab PO QAM 07/24/21 08/09/23 Unknown History fumarate-folic acid 18 mg-400 mcg tablet (Certavite-Antioxidant) acetaminophen 650 mg 650 mg PO TID 01/31/23 08/09/23 Unknown History tablet,extended release amlodipine 10 mg tablet 10 mg PO DAILY 01/31/23 08/09/23 Unknown History aripiprazole 5 mg tablet 5 mg PO QAM 01/31/23 08/09/23 Unknown History clonazepam 0.5 mg tablet 0.5 mg PO QAM 01/31/23 08/09/23 Unknown History olaparib 150 mg tablet (Lynparza) 150 mg PO BID 05/24/23 Unknown History triamcinolone acetonide 0.1 % 1 appl topical DAILY 05/24/23 08/09/23 Unknown History topical ointment calcium carbonate 500 mg-vitamin 1 tab PO DAILY 08/03/23 08/09/23 Unknown History D3 10 mcg (400 unit) chewable tablet Exam Exam Date and Time: August 13, 2023 1316 Height,Weight and Vital Signs: Height 5 ft 1 in Weight 66.224 kg Last Vital Signs Temp 98.2 F 08/13/23 11:35 Pulse 80 08/13/23 11:35 Resp 18 08/13/23 11:35 BP 165/78 H 08/13/23 11:35 Pulse Ox 98 08/13/23 11:35 O2 Del Method Room Air 08/13/23 11:35 Pertinent Lab Results Pertinent Lab Results: Laboratory Tests 08/13/23 11:02 POC Glucose 119 H Airway Mallampati Class: II TM Dist: >3cm Neck ROM: Full Loose/Missing/Broken Teeth: Yes, Upper and Lower Heart: RRR Lungs: CTA Assessment and Plan Assessment Anesthesia Assessment: Anesthesia Plan Discussed and Chart Reviewed Final Anesthetic Review History of Problems with Anesthesia: No NPO: Yes ASA Class: III Final Preanesthetic Review: Meds/Allgs Chart Reviewed, Consent Obtained/Reviewed and Anes Risks/Benef Reviewed Patient Risk: Intermediate Procedure Risk: Low Anesthetic Plan Anesthetic Plan: MAC: Disposition: Standard PACU
--- NOTE | 2023-08-13 14:27 | W.PM.OPN ---
Operative Note Operative Note Date of Service: 08/13/23 Narrative: PreOperative Diagnosis: Nonfunctional InterStim Post Operative Diagnosis: nonfunctional InterStim Procedure: removal of InterStim generator and lead Surgeon: Dr Mahendra Flanagan Anesthesia: sedation plus local Indications for procedure: nonfunctional InterStim Procedure: After informed consent was verified the patient was brought to the operating room and placed in a supine position. Anesthesia was administered per protocol. The patient was prepped and draped in a sterile fashion. Safety pause time-out was performed. Antibiotics being given. patient been placed on prone position Prior incisions seen at level of anterior superior iliac spine posterior gluteal. Local anesthetic infiltrated around prior incision. Prior midline incision seen for Sacral lead placement. Local anesthetic infiltrated. incision made over InterStim device. Incision taken down to subcutaneous tissue. Tissue dissected. Device found. Device removed from tissue pocket. Device sharply dissected from surrounding and attaching tissue. Lead followed to midline position. Incision made Over midline. dissection performed. Lead isolated and delivered from incision. Lead divided and generator removed from operative field. Lead bluntly dissected down on to sacral opening. Change in lead texture noted. Using right-angled clamp the lead was grasped and removed in a cephalad direction thus removing the entirety of the lead electrodes. at this point incisions were irrigated. Incisions closed with 4-0 Monocryl. Skin covered with glue. She tolerated the procedure well and was transferred in a stable condition to the recovery area Pathology: Drains:
[2023-08-13] MEDS: Acetaminophen 325 MG TABLET 650 MG PO (14:40)
[2023-08-13] MEDS: oxyCODONE HCl Immed Release 5 MG TABLET PO (14:40)
== END 2023-08-13 15:47 | disposition home or self-care (01) ==
PROVIDERS: PCP Pediatrics; Visit Provider Urology
PROC: (CPT 64585; principal; 2023-08-13 11:20)
DX: R39.15 Urgency of urination (principal); N31.8 Other neuromuscular dysfunction of bladder; N32.81 Overactive bladder; R35.0 Frequency of micturition; E11.9 Type 2 diabetes mellitus without complications; E78.00 Pure hypercholesterolemia, unspecified; K21.9 Gastro-esophageal reflux disease without esophagitis; D64.9 Anemia, unspecified; Z85.43 Personal history of malignant neoplasm of ovary; Z85.42 Personal history of malignant neoplasm of other parts of uterus; Z90.710 Acquired absence of both cervix and uterus; Z79.84 Long term (current) use of oral hypoglycemic drugs; Z79.899 Other long term (current) drug therapy
CPT/HCPCS: 64585; 64595; 82947; J0690; J2250; J2795; J3010

== ENCOUNTER → 2023-08-13 09:18 | Outpatient (BNV) | payer OTHER, SELFPAY | PROVIDERS: PCP Pediatrics; Visit Provider Urology | DX: T85.193A Other mechanical complication of implanted electronic neurostimulator, generator, initial encounter (principal) | CPT/HCPCS: 64585; 64595 ==

== ENCOUNTER → 2023-09-19 12:00 | Outpatient (BNV) | payer OTHER, SELFPAY | PROVIDERS: PCP General Practice; Visit Provider Radiology Diagnostic Radiology | DX: Z12.31 Encounter for screening mammogram for malignant neoplasm of breast (principal) | CPT/HCPCS: 77063; 77067 ==

== ENCOUNTER 2023-09-19 13:03 | Outpatient (REF) | payer OTHER, SELFPAY | END 2023-09-19 13:04 | disposition home or self-care (01) | LOC: HO.MAMMO 13:03 | PROVIDERS: PCP General Practice; Visit Provider General Practice | DX: Z12.31 Encounter for screening mammogram for malignant neoplasm of breast (principal) | CPT/HCPCS: 77063; 77067 ==

== ENCOUNTER 2024-01-21 10:20 | Outpatient (REF) | payer OTHER, SELFPAY ==
[2024-01-21 12:37] LABS: Alanine Aminotransferase 12 U/L (0-31); Albumin Level 4.5 g/dL (3.5-5.0); Alkaline Phosphatase 86 U/L (39-117); Anion Gap 11 (12-20); Aspartate Amino Transferase 14 U/L (5-31); Bilirubin Total 0.6 mg/dL (0.0-1.0); Blood Urea Nitrogen 15 mg/dL (9-16); Calcium 9.8 mg/dL (8.4-10.2); Carbon Dioxide 27 mmol/L (22-29); Chloride 108 mmol/L (96-108); Cholesterol 167 mg/dL (<200); Estimated Glomerular Filt Rate > 60; Glucose Random 89 mg/dL (60-115); HDL Cholesterol 59 mg/dL (>40); LDL Cholesterol Calculated 93 mg/dL (<100); Potassium 3.6 mmol/L (3.3-5.1); Sodium 142 mmol/L (135-145); Total Protein 7.6 g/dL (6.5-8.0); Triglycerides 75 mg/dL (<150)
[2024-01-21 12:53] LABS: Creatinine Urine 133.86 mg/dL; Microalbum/Creatinine Ratio Ur 13.4 ug/mg cr (<30)
[2024-01-21 12:55] LABS: TSH reflex Free T4 3.22 uIU/mL (0.32-4.0)
[2024-01-22 09:21] LABS: ~HepC Num1 0.14 S/CO (0.00-0.79); ~Hepatitis C Antibody Nonreactive (Nonreactive)
== END 2024-01-21 10:21 | disposition home or self-care (01) ==
LOC: HO.HHCL 10:20
PROVIDERS: Visit Provider General Practice
DX: E03.8 Other specified hypothyroidism (principal); E11.69 Type 2 diabetes mellitus with other specified complication
CPT/HCPCS: 36415; 80053; 80061; 82043; 82570; 84443; 86803

== ENCOUNTER 2024-05-13 11:25 | Emergency (ER) | payer OTHER, SELFPAY ==
--- NOTE | ~2024-05-13 | US_ITS ---
EXAMINATION: US VENOUS ULTRASOUND WITH DOPPLER LOWER EXTREMITY, BILATERAL CLINICAL INFORMATION: Lower limb swelling COMPARISON: Right lower limb venous Doppler examination on 04/19/2023 TECHNIQUE: Ultrasound of the deep veins is performed from the hip to the calf with compression sonography and color and pulse Doppler assessment. Spectral analysis with color-flow imaging is performed. FINDINGS: RIGHT: There is normal venous compression and respiratory variation and augmented flow. The visualized common femoral vein, superficial femoral vein, profunda femoral vein, popliteal vein, and the trifurcation region shows no evidence of deep venous thrombosis. There is no significant popliteal fossa cyst. Prominent benign right inguinal lymph node with normal central fatty hilum is seen measuring 0.6 cm in AP diameter, 1.3 cm in width, 1.2 cm in vertical height. LEFT: There is normal venous compression and respiratory variation and augmented flow. The visualized common femoral vein, profunda femoral vein, popliteal vein, and the trifurcation region shows no evidence of deep venous thrombosis. The left posterior tibial vein is also patent. There is no significant popliteal fossa cyst. Partially occluding thrombus is present in mid and distal left superficial femoral vein resulting in incomplete compressibility. The left peroneal vein could not be visualized. If the patient's symptoms persist, followup ultrasound in 5 days 7 days might be of value to exclude proximal propagation from a non-visualized calf vein. US/US venous duplex LE BI IMPRESSION: 1. Unchanged no evidence of deep vein thrombosis demonstrated in the right lower extremity. 2. Partially occluding thrombus is present in mid and distal left superficial femoral vein resulting in incomplete compressibility. 3. The left peroneal vein could not be visualized. This critical result was discussed with EMMA Gonsalez on 05/13/2024 at 1454 hours and it was ascertained that the content and urgency of this report was understood at the time of direct communication.
[2024-05-13 11:51] VITALS: BP 180/74; PULSE 76; RESP 16; TEMP 36.7; O2SAT 96; BMI 27.7
--- NOTE | 2024-05-13 11:55 | ED_ITS ---
HPI - Extremity Problem General Chief complaint: Extremity Problem Stated complaint: Back pain Time Seen by Provider: 05/13/24 14:00 Source: patient and RN notes reviewed Mode of arrival: ambulatory Limitations: language barrier History of Present Illness ED Provider: Liz Miranda PA-C HPI Narrative: This is a 73-year-old [place]ander-speaking female, with a past medical history of diabetes, back pain, and uterine cancer in remission with hysterectomy 2 years ago, who presents emergency department with complaints of atraumatic left leg pain x4 days. Patient states that since Sunday she has had left leg pain that radiates up into her left hip. She denies any recent injury or trauma to her leg. No recent falls. No recent long travels, hospitalizations, or surgeries. Denies history of blood clots. She is a nonsmoker. She denies any chest pain or shortness of breath. No other complaints or concerns at this time. Related Data Home Medications ?Medication ?Instructions ?Recorded ?Confirmed atenolol 25 mg tablet 25 mg PO BEDTIME 07/08/20 08/09/23 atorvastatin 40 mg tablet 40 mg PO BEDTIME 07/08/20 08/09/23 clonazepam 1 mg tablet 1 mg PO BEDTIME 07/08/20 08/09/23 enalapril maleate 20 mg tablet 20 mg PO DAILY 07/08/20 08/09/23 levothyroxine 50 mcg tablet 50 mcg PO DAILY 07/08/20 08/09/23 metformin 500 mg tablet 250 mg PO DAILY 07/08/20 08/09/23 alcohol swabs pad topical BID diabetes mellitus 07/22/20 12/20/20 blood sugar diagnostic #10 ea 07/22/20 12/20/20 lancets 33 gauge #100 ea 07/22/20 12/20/20 omeprazole 20 mg capsule,delayed 20 mg PO DAILY 07/22/20 08/09/23 release aripiprazole 2 mg tablet 1 tab PO BEDTIME 07/24/21 08/09/23 multivitamin-ferrous 1 tab PO QAM 07/24/21 08/09/23 fumarate-folic acid 18 mg-400 mcg tablet (Certavite-Antioxidant) acetaminophen 650 mg 650 mg PO TID 01/31/23 08/09/23 tablet,extended release amlodipine 10 mg tablet 10 mg PO DAILY 01/31/23 08/09/23 aripiprazole 5 mg tablet 5 mg PO QAM 01/31/23 08/09/23 clonazepam 0.5 mg tablet 0.5 mg PO QAM 01/31/23 08/09/23 olaparib 150 mg tablet (Lynparza) 150 mg PO BID 05/24/23 triamcinolone acetonide 0.1 % 1 appl topical DAILY 05/24/23 08/09/23 topical ointment calcium carbonate 500 mg-vitamin 1 tab PO DAILY 08/03/23 08/09/23 D3 10 mcg (400 unit) chewable tablet Previous Rx's ?Medication ?Instructions ?Recorded lidocaine 5 % topical patch 1 patch topical DAILY PRN pain #30 02/15/22 ea loratadine 10 mg tablet 10 mg PO DAILY PRN itch #10 tabs 04/19/23 (Allerclear) apixaban 5 mg (74 tabs) tablets in 5 mg PO BID #74 ea 05/13/24 a dose pack (EliquMapittrackit DVT-PE Treat 30D Start) Allergies Allergy/AdvReac Type Severity Reaction Status Date / Time No Known Allergies Allergy Verified 05/13/24 11:57 Review of Systems 2 Review of Systems: Yes all other systems are reviewed and are negative Constitutional: Constitutional: Reports as per [facility] Past Medical History Medical History Uterine cancer Ovarian cancer Acute hemorrhoid Osteoarthritis Back pain Arthritis Thyroid disease Diabetes GERD (gastroesophageal reflux disease) Peptic ulcer Anxiety Depression Elevated cholesterol HTN (hypertension) Surgical History History of surgery Previous back surgery H/O: hysterectomy H/O cystoscopy Hx of tonsillectomy H/O cataract extraction History of esophagogastroduodenoscopy (EGD) H/O colonoscopy H/O excision of mass Family History Family History Mother HTN (hypertension) Diabetes Father HTN (hypertension) Sister Diabetes Social History Social History Household Members: None Housing: Apartment Do you presently have visiting nurse or other home services: Yes ([facility]) Alcohol intake: never Patient Tobacco Use Status: Never used Tobacco Advance Directives: Yes Advance Directives on File: Yes Advance Directives Date on File: 02/15/22 service: No Current occupational status: disabled Gender identity: Female Physical Exam 2 Vital Signs: Vital Signs: Last Vital Signs Temp 98.1 F 05/13/24 17:26 Pulse 76 05/13/24 17:26 Resp 18 05/13/24 17:26 BP 180/74 H 05/13/24 17:26 Pulse Ox 98 05/13/24 17:26 O2 Del Method Room Air 05/13/24 17:26 BMI result Body Mass Index 27.7 Const: General: cooperative, comfortable and no acute distress O rientation/consciousness: patient oriented x3 Limitations: no limitations HEENT: Head: Yes normal to inspection, Yes normocephalic and Yes atraumatic Ears: hearing grossly normal bilaterally General nose exam: Normal external nose present Face and sinus: Yes normal facial exam Mouth: Normal oral and palatal mucosa present, oropharynx normal and moist mucous membranes Throat: Yes posterior oropharynx normal Eyes: General: appearance normal, both eyes and all related structures E yelids: Yes eyelids normal Conjunctivae: conjunctivae normal Sclerae: s clerae normal Pupils: Equal, round and reactive pupils present EOM: EOMs intact bilaterally Neck: Neck: Yes normal visual inspection, Yes full ROM and Yes no lymphadenopathy Lymphatic: no lymphadenopathy noted Chest: Chest palpation & inspection: normal inspection of the chest Resp: Effort & Inspection: normal respiratory effort and able to speak in complete sentences Auscultation: clear to auscultation bilaterally, no crackles, no rales, no rhonchi and no wheezes Cardio: Rate: regular rate Rhythm: regular rhythm Heart sounds: S1 normal heart sound present and S2 normal heart sound present GI: Inspection: Yes normal to inspection Skin: General skin exam: no rashes or lesions noted Trauma: no lacerations or abrasions Wounds: no wounds Neuro: General: patient oriented x3 and moves all extremities Cranial nerves: Yes Equal, round and reactive pupils present Extrem: Other: Left leg, no calf tenderness palpation, she has mild tenderness palpation along the left, she has strong DP pulses present, no pitting edema noted. Range of motion of the leg without difficulty. General: Yes normal to inspection Right upper extremity: normal to inspection Left upper extremity: normal to inspection Right lower extremity: normal to inspection Left lower extremity: normal to inspection Course Course Course Narrative: This is a Rapid Medical Examination (RME) performed by Rahul Riley PA-C in triage. Full HPI, ROS, assessment and treatment plan per primary provider in the Main ED. 73 yo [place] speaking female with history of DM, chronic low back pain w/ hx arthritis, presents to the ER for evaluation of bilateral lower extremity swelling with pain in the anterior left lower leg that radiates up into the left hip & lower back. No injury. No joint pain. Ran out of Tylenol. In triage patient has bilateral LE, nonpitting edema, R>L. No chest pain or SOB. No recent travel. Plan: U/S bilateral LE Medical Decision Making Medical Decision Making MDM Narrative: This is a 73-year-old female who presents emergency department with complaints of left leg pain times 4 days. No trauma or injury. On arrival, she is mildly hypertensive at 180/74, all other vital signs within normal limits. She has no chest pain or shortness for breath. She has tenderness palpation along the anterior burgess, no tenderness to palpation along the calf. Ultrasound was ordered out in triage, which was positive for a partially occluding thrombus present in the mid and distal left superficial femoral vein resulting in incomplete compressibility, the left peroneal vein could not be visualized. I discussed this with the vascular surgeon, Dr. Recio, who recommends starting on Eliquis, no intervention needed at this time. Recommending heme Onc follow-up as outpatient. An EKG was ordered to rule out atrial fibrillation due to thrombus found. She has a history of uterine cancer, which was treated for 2 years ago. She has no recent travel, surgery, hospitalizations to suggest any other provoking event. She has not hypoxic or tachycardic therefore further images not required at this time. However given strict return precautions if any of this occurs to return. Labs were obtained, within normal limits, will treat with Eliquis, given referral to heme Onc, given strict return precautions. She has had no hemorrhagic strokes, recent surgeries, or history of GI bleeds. Given precautionary measures especially being started on blood thinners, she understands. She understands and agrees with plan. Patient stable for discharge Differential Diagnosis Differential Diagnoses: The differential diagnosis associated with the presentation includes DVT, lumbar radiculopathy, sciatica, muscle strain Admission/Observation Consideration of admission/observation: Escalation of care including admission/observation considered Consult Healthcare Provider Management of the patient was discussed with: Mortgage Loan Officer Dr. Recio - vascular surgery Lab Data MDM Lab Attestation statement: I reviewed the patient's lab results. No leukocytosis, stable H&H, chemistry within normal limits, slight hypercalcemia at 10.4 seems to be at and around her baseline. 05/13/24 15:35 05/13/24 15:35 Labs: Lab Results 05/13/24 Range/Units 15:35 WBC 5.5 (4.8-10.8) X10*3/uL RBC 3.28 L D (4.20-5.50) X10*6/uL Hgb 12.3 D (12.0-16.0) g/dl Hct 35.0 L D (37.0-47.0) % MCV 106.7 H (80.0-98.0) fL MCH 37.5 H (27.0-33.0) pg MCHC 35.1 H (31.0-35.0) g/dl RDW 14.2 (11.0-16.0) % Plt Count 207 (160-400) X10*3/uL MPV 11.4 (9.4-12.3) fL Immature Gran % (Auto) 0.2 (0.0-0.4) % Neut % (Auto) 65.6 (45-73) % Lymph % (Auto) 25.3 (20-40) % [place] % (Auto) 7.8 (2-11) % Eos % (Auto) 0.7 (0-4) % Baso % (Auto) 0.4 (0-2) % Lymph # (Auto) 1.4 (1.2-4.9) X10*3/uL [place] # (Auto) 0.4 (0.1-1.2) X10*3/uL Eos # (Auto) 0.0 (0.0-0.4) X10*3/uL Baso # (Auto) 0.0 (0.0-0.2) X10*3/uL Abs Immat Gran (auto) 0.01 (0.00-0.03) X10*3/uL Absolute Neuts (auto) 3.6 (2.0-8.3) x10*3/uL Absolute Nucleated RBC 0.000 (0.0-0.012) X10*3/uL Nucleated RBC % (auto) 0.0 (0.0-0.2) /100WBC PT 12.0 (11.1-13.3) SEC INR 1.0 (0.9-1.1) APTT 29.0 (26.0-36.8) SEC Sodium 143 (135-145) mmol/L Potassium 3.8 (3.3-5.1) mmol/L Chloride 111 H (96-108) mmol/L Carbon Dioxide 23 (22-29) mmol/L Anion Gap 13 (12-20) BUN 15 (9-16) mg/dL Creatinine 0.72 (0.5-1.4) mg/dL Estim Creat Clear Calc 61.6 Estimated GFR > 60 Random Glucose 108 (60-115) mg/dL Calcium 10.4 H D (8.4-10.2) mg/dL Magnesium 2.0 (1.6-2.6) mg/dL Total Bilirubin 0.5 (0.0-1.0) mg/dL Direct Bilirubin 0.2 (0.0-0.5) mg/dL AST 15 (5-31) U/L ALT 11 (0-31) U/L Alkaline Phosphatase 89 (39-117) U/L Total Protein 7.4 (6.5-8.0) g/dL Albumin 4.4 (3.5-5.0) g/dL Lipase 18 (8-78) U/L Independent Interpretation I performed an independent interpretation of an: EKG Interpretation: EKG normal sinus rhythm at a ventricular rate of 60 per minute, OH interval 132, QT QTC 372/395, no ST elevation or depression. Radiology Impression Discussion of test interpretation with radiology: I have reviewed the radiologist's reading. Radiologist Impression: US/US venous duplex LE BI IMPRESSION: 1. Unchanged no evidence of deep vein thrombosis demonstrated in the right lower extremity. 2. Partially occluding thrombus is present in mid and distal left superficial femoral vein resulting in incomplete compressibility. 3. The left peroneal vein could not be visualized. This critical result was discussed with EMMA Gonsalez on 05/13/2024 at 1454 hours and it was ascertained that the content and urgency of this report was understood at the time of direct communication. Dictated By: Chon Ramírez Signed By: <Electronically signed External Record Review External record reviewed: Inpatient record, Office record, Outpatient record, Prior outpatient labs, Prior outpatient radiology, Primary care record and Outside ED record Discharge Plan Discharge Clinical Impression: DVT (deep venous thrombosis) Patient Disposition: Home, Self-Care Instructions: Deep Vein Thrombosis (ED), Blood Thinners (ED) Additional Instructions: You were seen in the emergency department due to left leg pain. You have a blood clot in your left leg causing you to have this pain. I am starting you on a blood thinner called Eliquis. Please take prescribed Eliquis as directed. You need to follow-up with Heme-Onc, call tomorrow to make an appointment. Please be advised that being on blood thinners causes you to have increased risk of bleeding, with any trauma it is very important that you get re-evaluated by any medical provider. If you develop any severe headache, dizziness, black or bloody stool, chest pain or shortness on breath, immediately report to an emergency room for further evaluation. If you develop any new or worsening symptoms including but not limited to chest pain or shortness for breath, please return for re-evaluation. Prescriptions: New Eliquis DVT-PE Treat 30D Start 5 mg (74 tabs) tablets,dose pack 5 mg PO BID Qty: 74 0RF No Action atorvastatin 40 mg Tablet 40 mg PO BEDTIME enalapril maleate 20 mg Tablet 20 mg PO DAILY clonazepam 1 mg Tablet 1 mg PO BEDTIME atenolol 25 mg Tablet 25 mg PO BEDTIME metformin 500 mg Tablet 250 mg PO DAILY levothyroxine 50 mcg Tablet 50 mcg PO DAILY lidocaine 5 % adhesive patch,medicated 1 patch topical DAILY PRN (Reason: pain) Qty: 30 0RF Rx Instructions: leave on most painful area for up to 12 hrs aripiprazole 2 mg tablet 1 tab PO BEDTIME Certavite-Antioxidant 18-400 mg-mcg tablet 1 tab PO QAM loratadine [Allerclear] 10 mg tablet 10 mg PO DAILY PRN (Reason: itch) Qty: 10 0RF omeprazole 20 mg capsule,delayed release(DR/EC) 20 mg PO DAILY (DME) lancets 33 gauge misc See Rx Instructions PO BID Qty: 100 Rx Instructions: As directed alcohol swabs Pads, Medicated topical BID (DME) blood sugar diagnostic Strip See Rx Instructions Not Applicable BID Qty: 10 Rx Instructions: As directed acetaminophen 650 mg tablet extended release 650 mg PO TID amlodipine 10 mg tablet 10 mg PO DAILY aripiprazole 5 mg tablet 5 mg PO QAM clonazepam 0.5 mg tablet 0.5 mg PO QAM Lynparza 150 mg tablet 150 mg PO BID triamcinolone acetonide 0.1 % ointment 1 appl topical DAILY calcium carbonate-vitamin D3 500 mg-10 mcg (400 unit) tablet,chewable 1 tab PO DAILY Referrals: [facility] Oncology/Hematology [Provider Group] Interventions: ED Discharge Assessment Last Done: 05/13/24 17:26 Discharge Date/Time: 05/13/24 17:34 Print Language: [place]alander
--- NOTE | 2024-05-13 14:10 | PC.NURSE ---
Patient reports left burgess pain that radiate up into hip. States started on sunday. Denies fall or trauma. Ambulating to bathroom with steady gait. Reports hx of back/spine x rays that showed a curved spine
--- NOTE | 2024-05-13 15:37 | ECG_ITS ---
Test Reason : THROMBUS LLE Blood Pressure : / mmHG Vent. Rate : 068 BPM Atrial Rate : 068 BPM P-R Int : 132 ms QRS Dur : 076 ms QT Int : 372 ms P-R-T Axes : 051 028 027 degrees QTc Int : 395 ms Normal sinus rhythm Low voltage QRS Nonspecific T wave abnormality Abnormal ECG When compared with ECG of 04-JUL-2023 17:16, Nonspecific T wave abnormality now evident in Lateral leads Referred By: Liz Miranda Electronically Signed By:Leighton Matson
[2024-05-13 15:39] LABS: MANUAL DIFF FLAG NO
[2024-05-13 15:42] LABS: Basophils Percent Auto 0.4 % (0-2); Eosinophils Percent Auto 0.7 % (0-4); Hemoglobin 12.3 g/dl (12.0-16.0); Imm Gran Abs Auto 0.01 X10*3/uL (0.00-0.03); Imm Gran Pct Auto 0.2 % (0.0-0.4); Lymphocytes Absolute Auto 1.4 X10*3/uL (1.2-4.9); Lymphocytes Percent Auto 25.3 % (20-40); Mean Corpuscular HGB Conc 35.1 g/dl (31.0-35.0); Mean Corpuscular Hemoglobin 37.5 pg (27.0-33.0); Mean Corpuscular Volume 106.7 fL (80.0-98.0); Mean Platelet Volume 11.4 fL (9.4-12.3); Monocytes Absolute Auto 0.4 X10*3/uL (0.1-1.2); Monocytes Percent Auto 7.8 % (2-11); Neutrophils Absolute Auto 3.6 x10*3/uL (2.0-8.3); Neutrophils Percent Auto 65.6 % (45-73); Platelet Count 207 X10*3/uL (160-400); Red Blood Count 3.28 X10*6/uL (4.20-5.50); Red Cell Distribution Width 14.2 % (11.0-16.0); White Blood Count 5.5 X10*3/uL (4.8-10.8)
[2024-05-13 15:56] LABS: Alanine Aminotransferase 11 U/L (0-31); Albumin Level 4.4 g/dL (3.5-5.0); Alkaline Phosphatase 89 U/L (39-117); Anion Gap 13 (12-20); Aspartate Amino Transferase 15 U/L (5-31); Bilirubin Direct 0.2 mg/dL (0.0-0.5); Bilirubin Total 0.5 mg/dL (0.0-1.0); Blood Urea Nitrogen 15 mg/dL (9-16); Calcium 10.4 mg/dL (8.4-10.2); Carbon Dioxide 23 mmol/L (22-29); Chloride 111 mmol/L (96-108); Creatinine Clr Calc Pharmacy 61.6; Estimated Glomerular Filt Rate > 60; Glucose Random 108 mg/dL (60-115); Lipase 18 U/L (8-78); Potassium 3.8 mmol/L (3.3-5.1); Sodium 143 mmol/L (135-145); Total Protein 7.4 g/dL (6.5-8.0)
[2024-05-13 17:26] VITALS: BP 180/74; PULSE 76; RESP 18; TEMP 36.7; O2SAT 98
== END 2024-05-13 17:34 | disposition home or self-care (01) ==
PROVIDERS: Physician Assistant Medical; Emergency Provider Emergency Medicine
DX: I82.412 Acute embolism and thrombosis of left femoral vein (principal); R60.0 Localized edema; R94.31 Abnormal electrocardiogram [ECG] [EKG]; Z79.899 Other long term (current) drug therapy
CPT/HCPCS: 36415; 80048; 80076; 83690; 83735; 85025; 85610; 85730; 93005; 93970; 99283; 99284

== ENCOUNTER → 2024-05-13 15:37 | Outpatient (BNV) | payer OTHER, SELFPAY | PROVIDERS: Emergency Provider Emergency Medicine; Visit Provider Internal Medicine Cardiovascular Disease | DX: R94.31 Abnormal electrocardiogram [ECG] [EKG] (principal) | CPT/HCPCS: 93010 ==

== ENCOUNTER → 2024-06-23 07:52 | Outpatient (BNV) | payer OTHER, SELFPAY | PROVIDERS: PCP General Practice; Visit Provider Internal Medicine Medical Oncology | DX: I82.402 Acute embolism and thrombosis of unspecified deep veins of left lower extremity (principal) | CPT/HCPCS: 99204 ==

== ENCOUNTER 2024-07-03 09:18 | Outpatient (REF) | payer OTHER, SELFPAY ==
--- NOTE | ~2024-07-03 | CT_ITS ---
EXAMINATION: CT ABDOMEN AND PELVIS WITH CONTRAST CLINICAL INFORMATION: History of ovarian cancer. DVT with question of recurrence COMPARISON: CT abdomen and pelvis 07/24/2021 TECHNIQUE: Multidetector volumetric images were obtained from the superior aspect of the liver through the pubic symphysis following administration 85 mL of Omnipaque 350 intravenous contrast. Sagittal and coronal reformatted images were obtained on the technologist's workstation. Oral contrast: No This CT examination was performed using dose optimization techniques as appropriate, variously including the following: *Automated exposure control *Adjustment of mA and/or kV according to patient size (this includes techniques or standardized protocols for targeted exams where dose is matched to indication/reason for exam; i.e. extremities or head) *Use of iterative reconstruction technique DLP: 350 mGy-cm FINDINGS: LUNG BASES: The visualized lung bases are unremarkable. LIVER, GALLBLADDER, AND BILIARY TREE: The liver is normal in size, shape, and attenuation. No focal hepatic lesion or biliary ductal dilatation is present. The gallbladder is unremarkable with no evidence of radiopaque gallstones, gallbladder wall thickening, or obvious pericholecystic inflammatory changes. PERITONEUM: No ascites is present. No evidence of omental cake or masses. No mesenteric masses PANCREAS: Unremarkable. SPLEEN: Unremarkable. ADRENAL GLANDS: Unremarkable. KIDNEYS AND URETERS: The kidneys are normal in size, shape, and attenuation. No hydronephrosis, hydroureter, or calculi seen. No perinephric stranding. BLADDER: Unremarkable. GASTROINTESTINAL TRACT: Moderate stool burden present throughout the colon. The small and large bowel are unremarkable. The appendix is unremarkable. ABDOMINAL WALL: No significant hernia is appreciated. There is an ovoid 2.5 x 1.5 cm soft tissue mass with a cystic center extending from the femoral acetabular joint in the right groin. It is unchanged from 2020 LYMPH NODES: No retroperitoneal lymphadenopathy VASCULAR: Unremarkable. No DVT is seen on this study. PELVIC VISCERA: The uterus is not seen. An abnormal adnexal mass is not detected. No free intraperitoneal fluid is present. OSSEOUS STRUCTURES: Marked degenerative changes are seen at L2-L3. Please see discussion above regarding right hip joint. There are marked degenerative changes in the right hip with a [id number] appearance and subchondral cyst formation in the acetabulum. CT/CT abdomen pelvis w IV con IMPRESSION: 1. No evidence of recurrent or metastatic ovarian carcinoma. 2. Incidental note made of a soft tissue mass extending from the right hip joint unchanged from 2020, likely related to the patient's severe arthritic changes. Fleischner guidelines were followed. Electronically signed by: Frankie Linton MD 07/03/2024 03:31 PM EDT
[2024-07-03] MEDS: Barium Sulfate Oral (Berry) 450 ML ORAL.SUSP 900 ML PO (12:00)
[2024-07-03] MEDS: iohexoL 350 MG/ML 100 ML INFUS..BTL 85 ML IV (12:00)
[2024-07-04 09:48] LABS: Creatinine POC 0.8 mg/dL (0.5-1.4); GFR POC > 60
== END 2024-07-03 09:19 | disposition home or self-care (01) ==
LOC: HO.CT 09:18
PROVIDERS: PCP General Practice; Visit Provider Internal Medicine Medical Oncology
DX: C56.9 Malignant neoplasm of unspecified ovary (principal)
CPT/HCPCS: 20610; 74177; 82565; 99212; J1010; Q9967

== ENCOUNTER 2024-07-03 13:07 | Outpatient (AMB) | payer OTHER, SELFPAY ==
--- NOTE | 2024-07-03 13:37 | A.OFFVIS_ITS ---
Intake Visit Reasons: OV - B/L knee OA, last inj 03/06/23 Intake Note: Yandy is a 74 year old female who presents today for a follow up for her bilateral knee OA, last injections 03/06/23. Patient reports her last injections gave her relief. Allergies No Known Allergies Allergy (Verified 07/03/24 13:41) HPI HPI OV - B/L knee OA, last inj 03/06/23: Details: 74-year-old female, who is [place] speaking, presents in the office today for a follow-up of bilateral knee osteoarthritis. I last saw the patient in the office on 03/06/23 when she received a cortisone injection in the bilateral knees.? ? While in the office today, the patient reports her last cortisone injection gave her relief. ? ? Patient has a significant medical history of a left lower extremity DVT and diabetes mellitus.? PFS Medical History Uterine cancer Ovarian cancer Acute hemorrhoid Osteoarthritis Back pain Arthritis Thyroid disease Diabetes GERD (gastroesophageal reflux disease) Peptic ulcer Anxiety Depression Elevated cholesterol HTN (hypertension) Surgical History History of surgery Previous back surgery H/O: hysterectomy H/O cystoscopy Hx of tonsillectomy H/O cataract extraction History of esophagogastroduodenoscopy (EGD) H/O colonoscopy H/O excision of mass Family History (Updated 06/23/24 @ 08:03 by Mike Logan) Mother Diabetes HTN (hypertension) Father HTN (hypertension) Sister Diabetes Lymphoma of lymph nodes Social History Household Members: None Housing: Apartment Do you presently have visiting nurse or other home services: Yes ([facility]) Alcohol intake: never Patient Tobacco Use Status: Never used Tobacco Advance Directives Date on File: 02/15/22 service: No Current occupational status: disabled Gender identity: Female Female Reproductive History Menstrual Age of Menarche: 10 Review of Systems Const All systems reviewed & are unremarkable except as noted in HPI and below Physical Exam Const General: cooperative, healthy appearing and no acute distress Resp Effort & Inspection: normal respiratory effort and able to speak in complete sentences Cardio Rate: regular rate Peripheral pulses: Peripheral pulses 2+ throughout GI Palpation (GI): Soft to palpation Skin Lesions: no lesions Rashes: no rashes Extrem Other: Left knee: No erythema, ecchymosis, or warmth. No drainage. No tenderness to palpation of the medial or lateral joint lines. Crepitus felt with ROM. Full ROM. Negative Aidan's. NVI. Right knee:No ecchymosis, redness, or joint effusion. Full ROM. No tenderness to palpation of the medial or lateral joint lines. Negative Aidan's. NVI. Office Procedures Joint Injection/Aspiration Joint Injection/Aspiration Primary Site: right knee Secondary Site: left knee Prep: site was prepped using aseptic technique, ethochloride spray was applied and injection warnings given Injected: 80 mg of, DepoMedrol, with 8 mL of (2% plain lido ) and in the joint Approach Used: anterolateral Procedure: The patient tolerated the procedure well, but had some pain with the injection and there was some relief with the local anesthesia Coding 39593 - Large joint Procedure code (CPT) selection complete Assessment & Plan Assessment & Plan (1) Bilateral primary osteoarthritis of knee: Code(s): M17.0 - Bilateral primary osteoarthritis of knee Category: Medical (2) Diabetes: Comment: type 2-oral med only Code(s): E11.9 - Type 2 diabetes mellitus without complications Category: Medical Plan Ms. Nunez is a 74-year-old female, who is [place] speaking, presents in the office today for a follow-up of bilateral knee osteoarthritis. I last saw the patient in the office on 03/06/23 when she received a cortisone injection in the bilateral knees.? ? While in the office today, the patient reports her last cortisone injection gave her relief. ? ? Patient has a significant medical history of a left lower extremity DVT and diabetes mellitus.? ? The patient was offered a cortisone injection in the bilateral knees with 80 mg of Depo-Medrol. The patient was explained the risks, benefits, and alternatives to receiving this injection. After receiving consent for the injection, the patient had the procedure done while in the office today. The patient tolerated the procedure well with no complications.? ? Due to the patient?s history of diabetes, they were instructed to monitor her blood glucose level. The patient was informed that they could see a rise in their numbers and if the numbers became too high, they were instructed to call their PCP. The patient was also informed that they could have facial flushing as a side effect of the injection, but this will pass.? ? Follow-up will be PRN, or sooner if needed.? Patient Instructions: Scribed by Jami Sheffield medical laboratory technicians, for Carissa Echevarria PA-C on 07/03/2024 at 1:46 pm, EST.? Coding Level of Care Code Est Pt Level 3 (52100) Diagnoses Bilateral primary osteoarthritis of knee M17.0 Diabetes E11.9 CPT Codes Coding - 97053 Large joint: 64840 - Large joint ([id number])
== END 2024-07-03 13:55 | disposition home or self-care (01) ==
PROVIDERS: Visit Provider Physician Assistant
DX: M17.0 Bilateral primary osteoarthritis of knee (principal); E11.9 Type 2 diabetes mellitus without complications
CPT/HCPCS: 20610; 99213

== ENCOUNTER → 2024-09-23 13:30 | Outpatient (BNV) | payer OTHER, SELFPAY | PROVIDERS: PCP General Practice; Visit Provider Internal Medicine | DX: Z12.31 Encounter for screening mammogram for malignant neoplasm of breast (principal) | CPT/HCPCS: 77063; 77067 ==

== ENCOUNTER 2024-09-23 14:02 | Outpatient (REF) | payer OTHER, SELFPAY | END 2024-09-23 14:03 | disposition home or self-care (01) | LOC: HO.MAMMO 14:02 | PROVIDERS: PCP General Practice; Visit Provider General Practice | DX: Z12.31 Encounter for screening mammogram for malignant neoplasm of breast (principal) | CPT/HCPCS: 77063; 77067 ==

== ENCOUNTER 2024-10-24 16:12 | Outpatient (REF) | payer OTHER, SELFPAY | END 2024-10-24 16:13 | disposition home or self-care (01) | LOC: HO.HHCLNP 16:12 | PROVIDERS: Visit Provider General Practice | DX: R30.0 Dysuria (principal) | CPT/HCPCS: 87086 ==

== ENCOUNTER → 2024-11-18 11:36 | Outpatient (BNVA) | payer OTHER, SELFPAY | PROVIDERS: PCP General Practice; Visit Provider Physician Assistant | DX: M17.0 Bilateral primary osteoarthritis of knee (principal); E11.9 Type 2 diabetes mellitus without complications | CPT/HCPCS: 20610; 99212; J1010; J2003 ==

== ENCOUNTER 2024-12-30 08:48 | Outpatient (AMB) | payer OTHER, SELFPAY ==
--- NOTE | 2024-12-30 09:01 | MHC.OFFVIS ---
Intake Visit Reasons: urge incontinence of urine Intake Note: Patient is present for URGE INCONTINENCE OF URINE Urology Medication:NONE Antibiotic Allergy:NONE Blood Thinner:APIXABAN TODAY'S PVR:0ML'S Packing Machine Tender Required: No Allergies No Known Allergies Allergy (Verified 12/30/24 09:02) HPI Comments Details: 12/30/24--fortino is a 74-year-old female who has seen in the past for urinary frequency urgency she had an InterStim sacral neuromodulation placed. She states that working and she would like to have it removed. 08/03/23--Fortino is a pleasant 73 year old Czech speaking patient of Dr. Hood was accompanied by her niece at today's office visit. She has a past medical history of anxiety, arthritis, back pain, depression, diabetes, hypercholesteremia, GERD, hypertension, osteoarthritis, ovarian and uterine cancer, and hypothyroidism. Patient presents to the office today for a follow up her urinary issues. When asked patient reports to be doing and feeling well. Of note, patient was seen approximately 2 months ago at which time a pelvis x-ray was ordered for further assessment evaluation of InterStim lead. Neural stimulation device and probe over the right iliac wing and gluteal muscle with lead projecting over the right sacral region at about S3-S4. Patient continues to discuss wanting removal of InterStim as she does not feel she has had any improvement in urinary symptoms with InterStim. Discussed risks and benefits at length of InterStim removal. Patient has met with [facility] on multiple occasions to further assess and educate on programming. Discussed at length potential worsening urinary symptoms with out device. She has a longstanding history of failed overactive bladder medications as well as failed Botox and tibial nerve stimulation. She otherwise offers no concerns or complaints at this time. Discussed at length importance of managing diabetes to further assist urinary symptoms as well as for overall health and well being. In office urinalysis results reviewed with the patient today. PVR 0 mL. She otherwise offers no issues or concerns at this time. [facility] Medical History Uterine cancer Ovarian cancer Acute hemorrhoid Osteoarthritis Back pain Arthritis Thyroid disease Diabetes GERD (gastroesophageal reflux disease) Peptic ulcer Anxiety Depression Elevated cholesterol HTN (hypertension) Surgical History History of surgery Previous back surgery H/O: hysterectomy H/O cystoscopy Hx of tonsillectomy H/O cataract extraction History of esophagogastroduodenoscopy (EGD) H/O colonoscopy H/O excision of mass Family History (Updated 06/23/24 @ 08:03 by Mike Logan) Mother Diabetes HTN (hypertension) Father HTN (hypertension) Sister Diabetes Lymphoma of lymph nodes Social History Household Members: None Housing: Apartment Do you presently have visiting nurse or other home services: Yes ([facility]AX[facility]) Alcohol intake: never Patient Tobacco Use Status: Never used Tobacco Advance Directives Date on File: 02/15/22 service: No Current occupational status: disabled Gender identity: Female Female Reproductive History Menstrual Age of Menarche: 10 Office Procedures Post Void Residual Post Residual Void Post Void Residual (PVR): 0 [id number] Void Residual by ultrasound Results AMB Urinalysis, Automated UA Leukoctes 0 Asia/uL Last Edit by DOMINICK Moncada on 12/30/24 09:16 UA Nitrite Negative Last Edit by DOMINICK Moncada on 12/30/24 09:16 UA Urobilinogen 3.5 mg/dL Last Edit by DOMINICK Moncada on 12/30/24 09:16 UA Protein 0 mg/dL Last Edit by DOMINICK Moncada on 12/30/24 09:16 UA pH 6.0 Last Edit by DOMINICK Moncada on 12/30/24 09:16 UA Blood 80 Aidan/uL Last Edit by DOMINICK Moncada on 12/30/24 09:16 UA Specific [place] 1.015 Last Edit by DOMINICK Moncada on 12/30/24 09:16 UA Ketone Negative Last Edit by DOMINICK Moncada on 12/30/24 09:16 UA Bilirubin 0 mg/dL Last Edit by DOMINICK Moncada on 12/30/24 09:16 UA Glucose 0 mg/dL Last Edit by DOMINICK Moncada on 12/30/24 09:16 Results Reviewed Results Reviewed: Laboratory Last Values Urine pH (Auto) 6.0 12/30/24 09:15 Specific [place] (Auto) 1.015 12/30/24 09:15 Urine Protein (Auto) 0 mg/dL 12/30/24 09:15 Glucose (UA)(Auto) 0 mg/dL 12/30/24 09:15 Urine Ketones (Auto) Negative 12/30/24 09:15 Urine Blood (Auto) 80 Aidan/uL 12/30/24 09:15 Urine Nitrite (Auto) Negative 12/30/24 09:15 Urine Bilirubin (Auto) 0 mg/dL 12/30/24 09:15 Urine Urobilinogen (Auto) 3.5 mg/dL 12/30/24 09:15 Leukocyte Esterase (Auto) 0 Asia/uL 12/30/24 09:15 Assessment & Plan Assessment & Plan Orders: Orders AMB Urinalysis Automated Today Z13.9 - Encounter for screening, unspecified Coding CPT Codes Post Residual Void - PVR CPT Code: 53120-Ilqt Void Residual by ultrasound ([id number])
--- OUTSIDE RECORDS SUMMARY | 2024-12-30 09:14 | XMS_ITS | Encounter Summary ---
Author Organization [employer] Address [address] [place] [address] Care Team Providers Care Electro Mechanical Technician Name Role Phone Yecenia Hood MD Primary Care Provider [phone] Encounter Details Date Type Department Care Team (Late st Contact Info) Description 11/21/2022 Orders Only [facility] CH[facility] MED & PEDS [address] [place], [place] [phone] Nava Khan LPN Social History Tobacco Use Types Packs/Day Years Used Date Smoking Tobacco: Never Assessed Comments Unknown Sex and Gender Information Value Date Recorded Sex Assigned at Female 08/14/2022 10:15 AM EDT Legal Sex Female 10:15 AM EDT Gender Identity Female 08/14/2022 10:15 AM EDT Sexual Orientation Straight 08/14/2022 10 :15 AM EDT documented as of this encounter Plan of Treatment Not on file documented as of this encounter Visit Diagnoses Not on filedocumented in this encounter Care Teams Electro Mechanical Technician Relationship Specialty Start Date End Date Yecenia Hood MD [address] [place] [address] PCP - General Family Medicine 06/14/20 documented as of this encounter
--- OUTSIDE RECORDS SUMMARY | 2024-12-30 09:14 | XMS_ITS | Encounter Summary ---
Author Organization [employer] Address [address] [place] [address] Care Team Providers Care Military Lawyer Name Role Phone Yecenia Hood MD Primary Care Provider [phone] Encounter Details Date Type Department Care Team (Late st Contact Info) Description 10/23/2022 Orders Only [facility] CHC MED & PEDS [address] [place], [place] [phone] Nava Khan LPN Social History Tobacco Use [...] on filedocumented in this encounter Care Teams Military Lawyer Relationship Specialty Start Date End Date Yecenia Hood MD [address] [place] [address] PCP - General Family Medicine 06/14/20 documented as of this encounter
--- OUTSIDE RECORDS SUMMARY | 2024-12-30 09:14 | XMS_ITS | Encounter Summary ---
Author Organization [employer] Address [address] [place] [address] Care Team Providers Care Product Steward Name Role Phone Yecenia Hood MD Primary Care Provider [phone] Reason for Visit * Reason Comments Med Refill Encounter Details Date Type Department Care Team ([facility] st Contact Info) Description 05/08/2023 Refill [facility] MED & PEDS [address] [place], [place] [phone] Faizan Ty FNP Social History Tobacco Use Types Packs/Day Years Used Date Smoking Tobacco: Never Smokeless Tobacco: Never Alcohol Use Standard Drinks/Week Comments Never 0 (1 standard drink = 0.6 oz pur e alcohol) PHQ-2 Answer Date Recorded Patient Health Questionnaire-2 Score 2 02/13/2023 Comments Unknown Sex and Gender Information Value Date Recorded Sex Assigned at Female 08/14/2022 10:15 AM EDT Legal Sex Female 10:15 AM EDT Gender Identity Female 08/14/2022 10:15 AM EDT Sexual Orientation Straight 08/14/2022 10 :15 AM EDT documented as of this encounter Plan of Treatment Not on file documented as of this encounter Visit Diagnoses Not on filedocumented in this encounter Additional Health Concerns Assessment Noted Time PHQ-9 Depression Total Score: 5 02/14/20 23 10:48 AM EDT documented as of this encounter Care Teams Product Steward Relationship Specialty Start Date End Date Yecenia Hood MD [address] [place] [address] PCP - General Family Medicine 06/14/20 documented as of this encounter
--- OUTSIDE RECORDS SUMMARY | 2024-12-30 09:14 | XMS_ITS | Encounter Summary ---
Author Organization [employer] Address [address] [place] [address] Care Team Providers Care Volunteer Fire Fighter Name Role Phone Yecenia Hood MD Primary Care Provider [phone] Encounter Details Date Type Department Care Team (Late st Contact Info) Description 01/01/2023 Orders Only [facility] CHC MED & PEDS [address] [place] [address] Nava Khan LPN Social History Tobacco Use Types Packs/Day Years Used Date Smoking Tobacco: Never Assessed PHQ-2 Answer Date Recorded Patient Health Questionnaire-2 Score 3 12/07/2022 Comments Unknown Sex and Gender Information Value [...] Noted Time PHQ-9 Depression Total Score: 5 12/07/19 23 10:20 AM EST documented as of this encounter Care Teams Volunteer Fire Fighter Relationship Specialty Start Date End Date Yecenia Hood MD [address] [place] [address] PCP - General Family Medicine 06/14/20 documented as of this encounter
--- OUTSIDE RECORDS SUMMARY | 2024-12-30 09:14 | XMS_ITS | Encounter Summary ---
Author Organization [employer] Address [address] [place] [address] Care Team Providers Care Slitter Scorer Name Role Phone Yecenia Hood MD Primary Care Provider [phone] Encounter Details Date Type Department Care Team (Late st Contact Info) Description 10/05/2022 Orders Only [facility] [address] [place] [address] Emma Cazares LPN Social History Tobacco Use Types Packs/Day [...] on filedocumented in this encounter Care Teams Slitter Scorer Relationship Specialty Start Date End Date Yecenia Hood MD [address] [place] [address] PCP - General Family Medicine 06/14/20 documented as of this encounter
--- OUTSIDE RECORDS SUMMARY | 2024-12-30 09:14 | XMS_ITS | Encounter Summary ---
Author Organization [employer] Address [address] [place] [address] Care Team Providers Care Skidder Loader Name Role Phone Yecenia Hood MD Primary Care Provider Encounter Details Date Type Department Care Team (Late st Contact Info) Description 06/20/2023 Orders Only [facility] MEDICINE [address] [place] [address] Provider, MD Vadim Social History Tobacco Use Types Packs/Day Years Used Date Smoking Tobacco: Never Smokeless Tobacco: Never Alcohol Use Standard Drinks/Week Comments Never 0 (1 standard drink = 0.6 oz pur e alcohol) Depression Answer Date Recorded Patient Health Questionnaire-9 Score 5 05/21/2023 Depression Answer Date Recorded Patient Health Questionnaire-2 Score 2 05/21/2023 Comments Unknown Sex and Gender Information Value Date Recorded Sex Assigned at Female 08/14/2022 10:15 AM EDT Legal Sex Female 10:15 AM EDT Gender Identity Female 08/14/2022 10:15 AM EDT Sexual Orientation Straight 08/14/2022 10 :15 AM EDT documented as of this encounter Plan of Treatment Not on file documented as of this encounter Procedures Procedure Name Priority Date/Time Associated Diagnosis Comments HM COLONOSCOPY Routine 07/24/2021 documented in this encounter Results * Hm Colonoscopy (07/24/2021) us Historical Provider HEALTH MAINTENANCE Final Result documented in this encounter Visit Diagnoses Not on filedocumented in this encounter Additional Health Concerns Assessment Noted Time PHQ-9 Depression Total Score: 5 05/21/20 23 9:45 AM EDT documented as of this encounter Care Teams Skidder Loader Relationship Specialty Start Date End Date Yecenia Hood MD [address] [place] [id number] PCP - General Family Medicine 06/14/20 documented as of this encounter
--- OUTSIDE RECORDS SUMMARY | 2024-12-30 09:15 | XMS_ITS | Encounter Summary ---
Author Organization [employer] Address [address] [place] [address] Care Team Providers Care Build Automation Engineer Name Role Phone Yecenia Hood MD Primary Care Provider [phone] Reason for Visit * Reason Comments Med Refill Encounter Details Date Type Department Care Team ([facility] st Contact Info) Description 12/15/2024 Refill [facility] MEDICINE [address] [place] [address] Yecenia Hood MD [address] [place], [place] [phone] Social History Tobacco Use Types Packs/Day Years Used Date Smoking Tobacco: Never Smokeless Tobacco: Never Alcohol Use Standard Drinks/Week Comments Never 0 (1 standard drink = 0.6 oz pur e alcohol) Depression Answer Date Recorded Patient Health Questionnaire-9 Score 2 02/18/2024 Patient Health Questionnaire-9 Score 2 02/18/2024 Last PHQ-9: Questionnaire Data Not on file 0 02/18/2024 Housing Stability Answer Date Recorded What is your housing situation today? I have octavia tilley 08/05/[address] you li ve. Do you have problems with any of the following? None of the above 08/05/2023 Food Insecurity Answer Date Recorded Within the past 12 months, y ou worried that your food would run out before you got money to buy more: Never True 08/05/2023 Within the past 12 months,th e food you bought just didn't last and you didn't have enough money to get more: Never True Transportation Answer Date Recorded In the past 12 months, has l ack of transportation kept you from medical appts, meetings, work or from getting things needed for daily living? No 12/06/2023 Utilities Answer Date Recorded In the past 12 months, has t he electric, gas, oil or water company threatened to shut off services in your home? No 08/05/2023 Depression Answer Date Recorded Patient Health Questionnaire-2 Score 1 02/18/2024 Comments Unknown Sex and Gender Information Value [...] Assessment Noted Time PHQ-9 Depression Total Score: 2 02/18/20 24 9:32 AM EDT documented as of this encounter Care Teams Build Automation Engineer Relationship Specialty Start Date End Date Yecenia Hood MD [address] [place] [id number] PCP - General Family Medicine 06/14/20 documented as of this encounter
--- OUTSIDE RECORDS SUMMARY | 2024-12-30 09:15 | XMS_ITS | Clinical Summary ---
Author Organization [employer] Address [address] [place] [address] Care Team Providers Care [employer] Facilitator Name Role Phone Yecenia Hood MD Primary Care Provider [phone] Allergies Active Allergy Reactions Criticality Noted Date Comments Latex 01/15/2023 Other reaction(s): Hives Shellfish Allergy Rash Low 01/15/2023 Medications Mapap 500 MG capsule TAKE 2 CAPSULES BY MOUTH EVERY 8 HOURS NEEDED 04/25/20 22 Active SM Dry Eye Relief 0.2-0.2-1 % solution APPLY 1-2 DROPS IN EACH EYE EVERY 6 HOURS NEEDED 08/14/20 22 Active hydrocortisone 1 % cream APPLY TOPICALLY TO AFFECTED AREA(S) TWICE DAILY 11/16/19 23 Active lidocaine (Xylocaine) 2 % solution TAKE 15 ML BY MOUTH EVERY 3 HOURS, SWISH AND SPIT OUT DIRECTED 08/03/20 22 Active Lynparza 150 MG chemo tablet 01/03/20 23 Active polyvinyl alcohol (Liquifilm Tears) 1.4 % ophthalmic solution USE 1-2 DROPS IN THE AFFECTED EYE (S) EVERY 6 HOURS NEEDED 11/15/19 23 Active loratadine (Claritin) 10 MG tablet TAKE 1 TABLET BY MOUTH DAILY NEEDED FOR ITCHING 04/20/20 23 Active Blood Glucose Monitoring Suppl (FreeStyle Lite) w/Device kit 1 kit 2 times daily. 1 kit 06/01/20 23 Active SM ClearLax 17 GM/SCOOP powder PONER 17 GM EN 8 ONZAS DE AGUA O JUGO 1 VEZ AL WILBER 09/27/20 23 Active levothyroxine (Synthroid, Levoxyl) 50 MCG tablet TAKE 1 TABLET BY MOUTH EVERYDAY AT NOON 90 tablet 3 01/01/20 24 Active Readi-Cat 2 2 % suspension TAKE DIRECTED 12/01/19 24 Active valACYclovir (Valtrex) 1 g tablet TAKE 1 TABLET BY MOUTH EVERY DAY FOR 5 DAYS 11/28/19 24 Active b complex vitamins capsule Take 1 capsule by mouth in the morning. 30 capsule 11 01/21/20 24 025 Active FREESTYLE LITE test stripIndication s:Type 2 diabetes mellitus with hyperglycemia, without long-term current use of insulin ([facility]) TEST BLOOD SUGAR TWICE DAILY 100 strip 11 01/29/20 24 Active atenolol (Tenormin) 25 MG tablet TAKE 1 TABLET BY MOUTH EVERY EVENING 90 tablet 3 03/07/20 24 Active NIFEdipine XL (Procardia XL) 90 MG 24 hr tablet Take 1 tablet (90 mg) by mouth Once per day. Do not crush, chew, or split. 90 tablet 3 06/13/20 24 025 Active enalapril (Vasotec) 20 MG tablet Take 1 tablet (20 mg) by mouth Once per day. 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 90 tablet 1 08/15/20 24 Active atorvastatin (Lipitor) 40 MG tablet TAKE 1 TABLET BY MOUTH EVERY EVENING 90 tablet 3 10/14/20 24 Active Eliquis 5 MG tablet TAKE 1 TABLET BY MOUTH TWICE DAILY IN THE MORNING AND IN THE EVENING 60 tablet 2 11/17/19 25 Active acetaminophen (Tylenol 8 Hour) 650 MG ER tablet TAKE 1 TABLET BY MOUTH EVERY 8 HOURS NEEDED FOR PAIN 90 tablet 11/25/19 25 Active metFORMIN (Glucophage) 500 MG tablet TAKE 1/2 TABLET BY MOUTH EVERY MORNING 45 tablet 3 12/17/19 25 Active omeprazole (PriLOSEC) [address] capsuleIndicati ons:Gastroesoph ageal reflux disease without esophagitis TAKE 1 CAPSULE BY MOUTH EVERY MORNING BEFORE BREAKFAST 90 capsule 3 12/20/19 25 Active metFORMIN (Glucophage) 500 MG tablet TAKE 1/2 TABLET BY MOUTH EVERY MORNING 45 tablet 3 10/31/19 24 025 Discontinued omeprazole (PriLOSEC) [address] capsuleIndicati ons:Gastroesoph ageal reflux disease without esophagitis TAKE 1 CAPSULE BY MOUTH EVERY MORNING BEFORE BREAKFAST 90 capsule 3 12/14/19 24 025 Discontinued Active Problems Problem Noted Date Diagnosed Date Ill-fitting dentures 08/20/2024 Dental caries into pulp 08/20/2024 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 Right buttock pain 06/13/2024 Pre-diabetes 01/22/2024 Assessment & Plan (01/22/2024 6:52 AM EDT): Continue Metformin 250mg daily A1C 5.4 T12 compression fracture, wi th delayed healing, subsequent encounter 05/28/2023 Assessment & Plan (05/28/2023 8:19 AM EDT): > 1 year since seen on CT scan Refer to ortho for potential surgical management Anemia 04/25/2023 Dermatitis 04/25/2023 Assessment & Plan (04/25/2023 11:33 AM EDT): It seems to be a vasculitic reaction to oleapriv vs environmental vs other continue benadryl PRn prescription for triamcinalone ointment to use BID on affected area reasurrance, gave her information about condition and she will FU with PCP or oncologist next month. 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 Assessment & Plan (05/28/2023 8:20 AM EDT): [facility] No re-occurrence per patient Continue Lymparza Assessment & Plan (01/17/2023 11:08 AM EDT): [facility] No re-occurrence per patient Constipation 01/15/2023 Gastroesophageal reflux disease 01/15/2023 Hemorrhoids 01/15/2023 Maintenance chemotherapy 01/15/2023 Peptic ulcer 01/15/2023 Skin lesion of back 01/15/2023 Left hip pain 01/15/2023 Assessment & Plan (01/17/2023 11:09 AM EDT): xrays ordered to rule out impingement Aphthous ulcer of mouth 01/12/2023 Bipolar depression 12/07/2022 Assessment & Plan (02/18/2024 10:06 AM EDT): With history of prominent anxiety. She continues doing very well. Continue Abilify 5 mg daily, Clonazepam 0.5 mg BID prn. F/u with therapist. On 08/21/2023 Provider informed the pt that I would be retiring, but we would make every effort to ensure smooth transition of care. Meanwhile, F/U with me in 2 months. She agrees with the plan Assessment & Plan (01/22/2024 6:53 AM EDT): Taking Abilify 5mg daily Klonopin 0.5mg BID prn Attending weekly outpatient therapy Assessment & Plan (11/20/2023 12:08 PM EST): She continues doing very well. Continue Abilify 5 mg daily, Clonazepam 0.5 mg BID prn. Recommend she call to F/U and see what's happening with her therapist. On 08/21/2023 Provider informed the pt that I would be retiring, but we would make every effort to ensure smooth transition of care. Meanwhile, F/U with me in 2-3 months. She agrees with the plan Assessment & Plan (08/21/2023 11:48 AM EST): She continues doing very well. Continue Abilify 5 mg daily, Clonazepam 0.5 mg BID prn. Has been referred for counseling, awaiting intake. Today 08/21/2023 Provider informed the pt that I would be retiring within the next year or so, but we would make every effort to ensure smooth transition of care. F/U with me in 3 months. She agrees with the plan Assessment & Plan (05/28/2023 8:20 AM EDT): Continue Abilify 5 mg daily, Clonazepam 0.5 mg BID prn. Will refer to re- establish outpatient therapy. Assessment & Plan (05/21/2023 10:08 AM EDT): Still doing OK. Continue Abilify 5 mg daily, Clonazepam 0.5 mg BID prn. Will refer to reestablish outpatient therapy. PMH: TOBACCO GROWER Cancer, in remission. F/U with me in 3 months. She agrees with the plan Assessment & Plan (02/13/2023 11:44 AM EDT): Still doing OK. Continue Abilify 5 mg daily, Clonazepam 0.5 mg BID prn. Not interested in therapy at this time. PMH: TOBACCO GROWER Cancer, in remission. F/U with me in 2-3 months. She agrees with the plan Assessment & Plan (01/17/2023 11:10 AM EDT): Sees Faizan Ty for medication management Plan is to continue Abilify 5 mg daily, Clonazepam 0.5 mg BID Assessment & Plan (12/07/2022 11:24 AM EST): Still doing OK. Continue Abilify 5 mg daily, Clonazepam 0.5 mg BID regularly not prn. Suggest she call her therapist to schedule F/U for counseling but she prefers to wait for now. F/U with me in 2 months. She agrees with the plan Arthritis of right hip 12/28/2021 Hypertensive retinopathy 08/15/2021 Back pain 09/23/2014 Assessment & Plan (01/17/2023 11:11 AM EDT): Chronic x at least 10 years Pain is worse currently Intertrigo 09/23/2014 Pruritus of vagina 09/23/2014 Visual impairment 09/23/2014 Hyperlipidemia 02/27/2014 Urge incontinence of urine 09/02/2013 Assessment & Plan (01/17/2023 11:09 AM EDT): Pt had bladder implant placed to try to diminish these symptoms, but they have not been successful thus far She has followup with urology next month to discuss Cervical intraepithelial neoplasia grade 1 04/25 Other specified hypothyroidism 06/19/2012 Assessment & Plan (05/28/2023 8:21 AM EDT): ? Globus sensation with large pills TSH at goal between 1 and 2 Depressive disorder 10/15/1959 Hypertension 10/15[birth year]1959 Assessment & Plan (10/28/2024 3:04 PM EST): Maintenance: on Nifedipine, Enalapril 20mg, Atenolol 25mg Change Enalapril dosing at next visit if continues to be >140/90 BMP: Lab Results Component Value Date CREATININE 0.8 07/03/2024 Lipid Panel: ASCVD Risk: The 10-year ASCVD risk score (Eryn MITCHELL, et al., 2019) is: 36.8% Values used to calculate the score: Age: 74 years Sex: Female Is Non- : No Diabetic: Yes Tobacco smoker: No Systolic Blood Pressure: 146 mmHg Is BP treated: Yes HDL Cholesterol: 59 mg/dL Total Cholesterol: 167 mg/dL EKG: Obtain baseline at f/u - Aerobic exercise to reduce BP. Initial goal of 30 min walk 3-5x/week. Increase as tolerated. - low-sodium diet (goal: <2g/day) and heart healthy diet such as DASH to reduce BP and prevent ASCVD. - Home BP monitoring 1-2 x day with goal of <140/90. - Seek immediate medical attention for chest pain, palpitations, SOB, syncope, or sudden changes in mental status. - Do not change or discontinue current prescriptions without first consulting health care provider Assessment & Plan (06/17/2024 2:45 PM EDT): Maintenance: on Nifedipine, Enalapril, Atenolol INCREASE Nifedipine to 90mg BMP: Lab Results Component Value Date CREATININE 0.87 01/21/2024 Lipid Panel: ASCVD Risk: The 10-year ASCVD risk score (Eryn MITCHELL, et al., 2019) is: 49.6% Values used to calculate the score: Age: 74 years Sex: Female Is Non- : No Diabetic: Yes Tobacco smoker: No Systolic Blood Pressure: 178 mmHg Is BP treated: Yes HDL Cholesterol: 59 mg/dL Total Cholesterol: 167 mg/dL EKG: Obtain baseline at f/u - Aerobic exercise to reduce BP. Initial goal of 30 min walk 3-5x/week. Increase as tolerated. - low-sodium diet (goal: <2g/day) and heart healthy diet such as DASH to reduce BP and prevent ASCVD. - Home BP monitoring 1-2 x day with goal of <140/90. - Seek immediate medical attention for chest pain, palpitations, SOB, syncope, or sudden changes in mental status. - Do not change or discontinue current prescriptions without first consulting health care provider Assessment & Plan (01/22/2024 6:51 AM EDT): Maintenance: on Amlodipine, Enalapril, Atenolol STOP AMLODIPINE, switch to NIFEDIPINE (does not want a diuretic) BMP: Lab Results Component Value Date CREATININE 0.87 01/21/2024 Lipid Panel: ASCVD Risk: Calculate pending updated labs EKG: Obtain baseline at f/u - Aerobic exercise to reduce BP. Initial goal of 30 min walk 3-5x/week. Increase as tolerated. - low-sodium diet (goal: <2g/day) and heart healthy diet such as DASH to reduce BP and prevent ASCVD. - Home BP monitoring 1-2 x day with goal of <140/90. - Seek immediate medical attention for chest pain, palpitations, SOB, syncope, or sudden changes in mental status. - Do not change or discontinue current prescriptions without first consulting health care provider Assessment & Plan (05/28/2023 8:19 AM EDT): Continue Enalapril and Amlodipine Assessment & Plan (04/25/2023 11:34 AM EDT): BP was 120/78 at the end of the visit, no medication changes FU with PCP next month Assessment & Plan (01/17/2023 11:08 AM EDT): Not at goal Increase Amlodipine to 10mg daily Osteoarthritis 10/15/1958 Resolved Problems Problem Noted Date Diagnosed Date Resolved Date Skin ulcer of buttock 06/13/20242024 Encounters Date Type Department Care Team Description 12/19/2024 Refill [facility] [address] [place] [address] Yecenia Hood MD Gastroesophageal reflux disease without esophagitis 12/15/2024 Refill [facility] [address] [place] [address] Yecenia Hood MD 11/24/2024 Refill [facility] [address] [place] [address] Joyce Tolbert MD 11/15/2024 Refill [facility] [address] [place] [address] Yecenia Hood MD 11/04/2024 9:00 AM EST Telemedicine [facility] [address] [facility] [place] [address] Yecenia Hood MD Carcinoma of peritoneum ([facility]) (Primary Dx); Urge incontinence of urine; Bipolar depression ([facility]); Primary hypertension; Pre-diabetes 11/04/2024 Travel 10/28/2024 Telephone [facility] [address] [facility] [place] [address] Maribell Ott, RN Results 10/24/2024 1:30 PM EST Office Visit [facility] [address] [place] [address] Yecenia Hood MD Carcinoma of peritoneum ([facility]) (Primary Dx); Type 2 diabetes mellitus with other specified complication, without long-term current use of insulin ([facility]); Dysuria; Dietary counseling; Exercise counseling; Overweight; Bipolar depression ([facility]); Urge incontinence of urine; Primary hypertension 10/24/2024 Travel 10/14/2024 Refill [facility] [address] [place] [address] Yecenia Hood MD from Last 3 Months Immunizations Name Administration Dates Next Due Influenza injectable quadriv alent IIV4 with preservative 07/24/2018,08/30/2016,06/28/2015 Influenza, IIV3, injectable 07/23/2014 Influenza, Split (incl. leena fied surface antigen) 07/07/2013 Pneumococcal Conjugate PCV 13 08/30/2016 Pneumococcal Conjugate PCV 20 08/11/2024 Tdap 05/27/2018,06/05/2012 Zoster, Recombinant 08/11/2024,05/26/2022 Zoster, live 08/30/2016 Social History Tobacco Use Types Packs/Day Years Used Date Smoking Tobacco: Never Smokeless Tobacco: Never Tobacco Cessation:Counseling Given: Not Answered Alcohol Use Standard Drinks/Week Comments Never 0 [...] Orientation Straight 08/14/2022 10 :15 AM EDT Last Filed Vital Signs Vital Sign Reading Time Taken Comments Blood Pressure 146/82 10/24/2024 2:47 PM EST Pulse 68 10/24/2024 12:57 PM EST Temperature 36.6 ??C (97.9 ??F) 10/24/2024 12:[address] Respiratory Rate 16 10/24/2024 12:57 PM EST Oxygen Saturation 98% 06/13/2024 10:47 AM EDT Inhaled Oxygen Concentration - - Weight 69.9 kg (154 lb) 10/24/2024 12:57 PM EST Height 154.9 cm (5' 1 ) 10/24/2024 12:57 PM EST Body Mass Index 29.1 10/24/2024 12:57 PM EST Plan of Treatment Health Maintenance Due Date Last Done Comments CT Colonography 1950 FIT DNA/Cologuard 1950 FIT 1950 FOBT 1950 Sigmoidoscopy 1950 Diabetes: Foot Exam 1961 Alcohol/Substance Use Screening 1963 Dental Oral Exam 10/14/2022 04/13/2022, 06/2019, 07/22/2018, Additional history exists Dental Prophylaxis 10/14/2022 04/13/2022, 0 01/21/2019, 07/22/2018, Additional history exists Dental X-Ray: Bitewings 04/14/2023 04/13/20 22, 07/22/2018, 07/19/2017, Additional history exists COVID-19 Vaccine ( season) 2024 01/20/2021, 12/23/2020 Influenza Vaccine (#1) 2024 8, 08/30/2016, 06/28/2015, Additional history exists SDOH Screening 12/06/2024 12/06/2023 Diabetes: Urine Protein Screening 01/20/2025 01/21/2024, 01/15/2023 Lipid Panel 01/20/2025 01/21/2024, 05/15, 11/05/2020 Depression Screening 02/17/2025 02/18/2024, 02/18/20 Dental X-Ray: Full Mouth 04/14/2025 04/13/2022 Diabetes: Hemoglobin A1C 04/23/2025 025, 01/21/2024, 01/15/2023, Additional history exists Mammogram 09/23/2025 09/23/2024, 03/2023, 09/13/2022, Additional history exists Tobacco Screening 11/04/2025 11/04/2024 RSV Patients and Patients Aged 60 years or older (1 - 1-dose 75+ series) 2026 Colonoscopy 07/24/2026 07/24/2021 Colorectal Cancer Screening 07/24/2026 Eye Exam 10/30/2026 10/30/2024 DTaP/Tdap/Td Vaccines (3 - Td or Tdap) 05/27/2028 05/27/2018, 06/05/2012 Hepatitis C Screening Completed 01/21/2024 Pneumococcal Vaccine: 50+ Years Completed 08/11/2024, 08/30/2016 Zoster Vaccines Completed 08/11/2024, 05/15, 08/30/2016 HIB Vaccines Aged Out No longer eligi ble based on patient's age to complete this topic HPV Vaccines Aged Out No longer eligi ble based on patient's age to complete this topic Hepatitis A Vaccines Aged Out No long er eligible based on patient's age to complete this topic Hepatitis B Vaccines Aged Out No long er eligible based on patient's age to complete this topic IPV Vaccines Aged Out No longer eligi ble based on patient's age to complete this topic Meningococcal Vaccine Aged Out No alex german eligible based on patient's age to complete this topic RSV under 20 months Aged Out No longe r eligible based on patient's age to complete this topic Rotavirus Vaccines Aged Out No longer eligible based on patient's age to complete this topic Procedures Procedure Name Priority Date/Time Associated Diagnosis Comments POCT URINALYSIS DIPSTICK Routine 10/24/2024 1:45 PM EST Dysuria CULTURE, URINE, ROUTINE Routine 10/24/2024 1:38 PM EST Dysuria POCT GLYCATED HEMOGLOBIN, TOTAL Routine 10/24/2024 1:11 PM EST Type 2 diabetes mellitus with other specified complication, without long-term current use of insulin (CMS/HCC) POCT GLUCOSE Routine 10/24/2024 1:11 PM EST Type 2 diabetes mellitus with other specified complication, without long-term current use of insulin (CMS/HCC) BI MAMMOGRAM SCREENING TOMOSYNTHESIS BILATERAL Routine 09/23/2024 2:10 PM EST HEPATITIS C AB W/REFL TO HCV RNA, QN, PCR Routine 01/21/2024 10:26 AM EDT Type 2 diabetes mellitus with other specified complication, without long-term current use of insulin (CMS/HCC) ALBUMIN, RANDOM URINE W/CREATININE Routine 01/21/2024 10:26 AM EDT Type 2 diabetes mellitus with other specified complication, without long-term current use of insulin (CMS/HCC) LIPID PANEL, STANDARD Routine 01/21/2024 10:26 AM EDT Type 2 diabetes mellitus with other specified complication, without long-term current use of insulin (CMS/HCC) PROPHYLAXIS - ADULT Routine 04/13/2022 1 2:00 AM EDT INTRAORAL - COMPLETE SERIES OF RADIOGRAPHIC IMAGES Routine 04/13/2022 12:00 AM EDT PERIODIC ORAL EVALUATION - ESTABLISHED PATIENT Routine 04/13/2022 12:00 AM EDT HM COLONOSCOPY Routine 07/24/2021 from Last 3 Months or Most Recently Relevant to Health Maintenance Results * (ABNORMAL) POCT Urinalysis (10/24/2024 1:45 PM EST) Color, UA Yellow Clarity, UA Clear Glucose, UA Negative Bilirubin, UA Negative Ketones, UA Negative Spec Grav, UA 1.015 Blood, UA Positive(A) Negative, None Detected Comment:small pH, UA 7.0 Protein, UA Negative Urobilinogen, UA 0.2 Leukocytes, UA Trace Negative, Rare, Trace Nitrite, UA Negative Negative, None Detected Appearance, UA clear Urine 10/24/2024 1:45 PM EST us Yecenia Hood MD POINT OF CARE TEST ENTER/EDIT ORDERABLES Final Result * Culture, Urine, Routine (10/24/2024 1:38 PM EST) Urine Urine specimen obtained by clean catch procedure / Unknown 10/24/2024 1:38 PM EST 10/24/2024 4:13 PM EST Comment:UACC Narrative [facility] - 10/26/2024 11:27 AM EST Urine Culture Report Result Urine Culture < 10,000 cfu/ml Specimen Source: Urine clean catch us Yecenia Hood MD LAB MICROBIOLOGY - GENERAL ORD ERABLES Final Result Performing Organization Address City/State/[facility] Co de Phone Number [facility] [address] [place] [phone] * POCT HGB A1C (10/24/2024 1:11 PM EST) Hemoglobin A1C 5.7 4.0 - 6.0 % QC Media Lot # [id number] Lot# Expiration Date ,026 Blood 10/24/2024 1:11 PM EST Result [facility] Yecenia Hood MD POINT OF CARE TEST ENTER/EDIT ORDERABLES Final Result * POCT Glucose (10/24/2024 1:11 PM EST) Glucose Blood, POC 116 60 - 200 mg/dL QC Media Lot # [id number] Lot# Expiration Date ,025 Blood Capillary blood specimen / Unknown 10/24/2024 1:11 PM EST Result [facility] us Yecenia Hood MD POINT OF CARE TEST ENTER/EDIT ORDERABLES Final Result * BI Mammogram Screening Tomosynthesis Bilateral (09/23/2024 2:10 PM EST) Anatomical Region Laterality Modality Breast Bilateral Mammography 09/23/2024 2:10 PM EST Narrative 09/29/2024 4:35 PM EST ? [facility] [place] ? [address] ?[place] [address] ? Mammography Report ? Signed ? Patient: Nunez,Iris ?MR#: [id number] ? : 1950 ?Acct:[id number] ? Age/Sex: 74 / F ?ADM Date: 09/23/24 ? Loc: HO.MAMMO ? Attending Dr: Yecenia Hood MD ? Ordering Physician: Yecenia Hood ?Results: 1Negative ? Date of Service: 09/23/24 ?Follow Up: 1 Year From Orig ?? inal Mammogram ? Procedure(s): MM tomosynthesis screening BI ?? Accession Number(s): [id number] ? cc: Yecenia Hood ? EXAMINATION: ?? MM SCREENING DIGITAL BREAST TOMOSYNTHESIS, BILATERAL ? CLINICAL INFORMATION: ? Screening. Asymptomatic. ? COMPARISON: ?? Mammography: Comparison is made with available priors ? TECHNIQUE: ?? Digital breast mammography with tomosynthesis is performed in both the ?? craniocaudal and mediolateral oblique views along with computer-aided ?? detection (CAD). ? FINDINGS: ?? There are scattered areas of fibroglandular density (ACR BI-RADS breast ?? composition Category b). ? There are no significant masses, abnormal calcifications, or other ?? abnormalities. ? MM/MM tomosynthesis screening BI ?? IMPRESSION: ?? No mammographic evidence of malignancy. ? ASSESSMENT: ? BI-RADS BI-RADS 1 - Negative ? RECOMMENDATION: ?? Routine annual mammography screening. ? 1 year F/U ? This examination should not preclude the clinical evaluation of a ?? suspicious palpable abnormality. ? This patient's information was entered into a reminder system with a ?? target due date for their next mammogram. ? Electronically signed by: ??Rachael Rowland DO ??09/29/2024 04:32 PM EST ? Dictated By: ?Rachael Rowland DO ? Signed By: ?<Electronically signed by Rachael Rowland, DO in OV> ? 09/29/24 1632 ? DD/ 1410 ? TD/TT: 09/23/24 1420 ? Manager Qa: ? Procedure Note Jamilah Cartwright - 09/29/2024 [place] [facility] [address] [place] [address] Mammography Report Signed Patient: Ishaan Nunez#: [id number] : 1Acct:[id number] Age/Sex: 74 / FADM Date: 09/23/24 Loc: HO.MAMMO Attending Dr: Yecenia Hood MD Ordering Physician: Sherry Hoodults: 1Negative Date of Service: 09/23/24Follow Up: 1 Year From Orig ina Mammogram Procedure(s): MM tomosynthesis screening BI Accession Number(s): [id number] cc: Yecenia Hood EXAMINATION: MM SCREENING DIGITAL BREAST TOMOSYNTHESIS, BILATERAL CLINICAL INFORMATION: Screening. Asymptomatic. COMPARISON: Mammography: Comparison is made with available priors TECHNIQUE: Digital breast mammography with tomosynthesis is performed in both the craniocaudal and mediolateral oblique views along with computer-aided detection (CAD). FINDINGS: There are scattered areas of fibroglandular density (ACR BI-RADS breast composition Category b). There are no significant masses, abnormal calcifications, or other abnormalities. MM/MM tomosynthesis screening BI IMPRESSION: No mammographic evidence of malignancy. ASSESSMENT: BI-RADS BI-RADS 1 - Negative RECOMMENDATION: Routine annual mammography screening. 1 year F/U This examination should not preclude the clinical evaluation of a suspicious palpable abnormality. This patient's information was entered into a reminder system with a target due date for their next mammogram. Electronically signed by: Rachael Rowland DO 09/29/2024 04:32 PM [facility] Dictated By: Rachael Rowland DO Signed By: <Electronically signed by Rachael Rowland DO in OV> 09/29/24 1632 DD/ 1410 TD/TT: 09/23/24 1420 Manager Qa: Yecenia Hood MD IMG BI PROCEDURES Edited Resul t - Final * Albumin, Random Urine W/Creatinine (01/21/2024 10:26 AM EDT) Creatinine, Urine 133.86 mg/dL [facility] Microalbumin Urine 18.0 mg/L [facility] Microalbum Creatinine Ratio Ur 13.4 <30 ug/mg cr [facility] Comment:Albumin/Creatinine R atio Reference Ranges: Normal: < 30 ug/mg creatinine Microalbuminuria: 30 - 300 ug/mg creatinineClinical Albuminuria: > 300 ug/mg creatinine Urine (Urine, Random) 01/21/2024 10:26 AM EDT 01/21/2024 11:25 AM EDT Yecenia Hood MD LAB URINE ORDERABLES Final Res ult [facility] [address] [place] [address] [phone] * Hepatitis C Antibody with Reflex to HCV, RNA, Quantitative, Real-Time PCR (01/21/2024 10:26 AM EDT) Hepatitis C Antibody Nonreactive Nonreactive [facility] Comment:Antibodies to HCV no t detected; does not exclude early acuteHCV infection. Blood Venous blood specimen / Unknown 01/21/2024 10:26 AM EDT 01/21/2024 11:44 AM EDT Yecenia Hood MD LAB BLOOD ORDERABLES Final Res ult Performing Organization Address City/[facility]/ZIP Co de Phone Number [facility] [address] [place] [address] [phone] * Lipid Panel, Standard (01/21/2024 10:26 AM EDT) Triglycerides 75 <150 mg/dL [facility] Comment:Desirable Triglyceri de: less than 150 mg/dLBorderline High Triglyceride 150-199 mg/dLHigh Triglyceride: 200-499 mg/dLVery High Triglyceride: greater than or equal to 5OO mg/dL Cholesterol 167 <200 mg/dL [facility] Comment:Desirable Cholestero l: less than 200 mg/dLBorderline High Cholesterol: 200-239 mg/dLHigh Cholesterol: greater than 239 mg/dL LDL Cholesterol Calculated 93 <100 mg/dL [facility] Comment:Desirable LDL: less than 100 mg/dLNear Optimal/Above Optimal LDL: 110- 129 mg/dLBorderline High LDL: 130-159 mg/dLHigh LDL: 160-189 mg/dLVery High LDL: greater than or equal to 190 mg/dL HDL Cholesterol 59 >40 mg/dL [facility] Comment:Desirable HDL: great er than 40 mg/dL Note: This HDL assay may give artificially low results in patients with liver disease. Blood Venous blood specimen / Unknown 01/21/2024 10:26 AM EDT 01/21/2024 11:44 AM EDT Yecenia Hood MD LAB BLOOD ORDERABLES Final Res ult Performing Organization Address City/[facility]/ZIP Co de Phone Number [facility] [address] [place] [address] [phone] * Hm Colonoscopy (07/24/2021) Historical Provider HEALTH MAINTENANCE Final Result from Last 3 Months or Most Recently Relevant to Health Maintenance Insurance [facility] - [facility] DENTAL - [facility] Care Teams Landcare Facilitator Relationship Specialty Start Date End Date Yecenia Hood MD [address] [place] [address] PCP - General Family Medicine 06/14/20
--- OUTSIDE RECORDS SUMMARY | 2024-12-30 09:15 | XMS_ITS | Encounter Summary ---
Author Organization [employer] Address [address] [place] [address] Care Team Providers Care Joiners Supervisor Name Role Phone Yecenia Hood MD Primary Care Provider [phone] Reason for Visit * Reason Comments Med Refill Encounter Details Date Type Department Care Team ([facility] st Contact Info) Description 12/19/2024 Refill [facility] [address] [place] [address] Yecenia Hood MD [address] [place] [address] Gastroesophageal reflux disease without esophagitis Social History Tobacco Use Types Packs/Day Years [...] documented as of this encounter Visit Diagnoses Diagnosis Gastroesophageal reflux disease without esophagitis Esophageal reflux documented in this encounter Additional Health Concerns Assessment Noted Time PHQ-9 Depression Total Score: 2 02/18/20 24 9:32 AM EDT documented as of this encounter Care Teams Joiners Supervisor Relationship Specialty Start Date End Date Yecenia Hood MD [address] [place] [address] PCP - General Family Medicine 06/14/20 documented as of this encounter
--- OUTSIDE RECORDS SUMMARY | 2024-12-30 09:15 | XMS_ITS | Encounter Summary ---
Author Organization [employer] Address [address] [place] [address] Care Team Providers Care Door Paneler Name Role Phone Yecenia Hood MD Primary Care Provider [phone] Encounter Details Date Type Department Care Team (Late st Contact Info) Description 08/26/2024 Orders Only [facility] MED[facility] [address] [place] [address] Yecenia Hood MD [address] [place] [address] Social History Tobacco Use Types Packs/Day Years [...] the past 12 months, has t he [employer], gas, oil or water company threatened to [...] Procedure Name Priority Date/Time Associated Diagnosis Comments BI MAMMOGRAM SCREENING TOMOSYNTHESIS BILATERAL Routine 09/23/2024 2:10 PM EST documented in this encounter Results * BI Mammogram Screening Tomosynthesis Bilateral (09/23/2024 2:10 PM EST) Anatomical Region Laterality Modality Breast Bilateral Mammography 09/23/2024 2:10 PM EST Narrative 09/29/2024 4:35 PM EST ? [facility] [place] ? [address] ?[place] [address] ? Mammography Report ? Signed ? Patient: Nunez,Iris ?MR#: [id number] ? : 1950 ?Acct:[id number] ? Age/Sex: 74 / F ?ADM Date: 12/10/24 ? Loc: HO.MAMMO ? Attending Dr: Yecenia Hood MD ? Ordering Physician: Yecenia Hood ?Results: 1Negative ? Date of Service: 12/10/24 ?Follow Up: 1 Year From Orig ?? inal Mammogram ? Procedure(s): MM tomosynthesis screening BI ?? Accession Number(s): [id number] ? cc: Yecenia Hood ? EXAMINATION: ?? [...] ??Rachael Rowland DO ??09/29/2024 04:32 PM EST ?? RP ? Dictated By: ?Rachael Rowland DO ? Signed By: ?<Electronically signed by Rachael Rowland, DO in OV> ? 09/29/24 1632 ? DD/ 1410 ? TD/TT: 09/23/24 1420 ? Tempering Oven Operator: ? Procedure Note Chay, Image - 09/29/2024 [place] [facility] [address] [place] [address] [place] [address] Mammography Report Signed Patient: Yandy Nunez#: [id number] : 1950cct:[id number] Age/Sex: 74 / FADM Date: 09/23/24 Loc: HO.MAMMO Attending Dr: Yecenia Hood MD Ordering Physician: Sherry Hoodults: 1Negative Date of Service: 09/23/24Follow Up: 1 Year From Orig inal Mammogram Procedure(s): MM tomosynthesis screening BI Accession Number(s): [id number] cc: Yecenia Hood EXAMINATION: MM SCREENING DIGITAL [...] by: Rachael Rowland DO 09/29/2024 04:32 PM [facility] Dictated By: Rachael Rowland DO Signed By: <Electronically signed by Rachael Rowland DO in OV> 09/29/24 1632 DD/ 1410 TD/TT: 09/23/24 1420 Tempering Oven Operator: us Yecenia Hood MD IMG BI PROCEDURES Edited Resul t - Final documented in this encounter Visit Diagnoses Not on filedocumented in this encounter Additional Health Concerns Assessment Noted Time PHQ-9 Depression Total Score: 2 02/18/20 24 9:32 AM EDT documented as of this encounter Care Teams Door Paneler Relationship Specialty Start Date End Date Yecenia Hood MD [address] [place] [phone] PCP - General Family Medicine 06/14/20 documented as of this encounter
--- OUTSIDE RECORDS SUMMARY | 2024-12-30 09:15 | XMS_ITS | Encounter Summary ---
Author Organization [employer] Address [address] [facility] 7t [place] [address] Care Team Providers Care Flotation Operator Name Role Phone Yecenia Hood MD Primary Care Provider [phone] Encounter Details Date Type Department Care Team (Latest Contact Info) Description 04/13/2022 Abstract [facility] CONVERSIONS Dental, Provider, DDS Social History Tobacco Use Types Packs/Day Years [...] on filedocumented in this encounter Care Teams Flotation Operator Relationship Specialty Start Date End Date Yecenia Hood MD [address] [place] [address] PCP - General Family Medicine 06/14/20 documented as of this encounter
== END 2024-12-30 10:01 | disposition home or self-care (01) ==
LOC: HO.HUSH 08:49
PROVIDERS: PCP General Practice; Visit Provider Urology
DX: Z13.9 Encounter for screening, unspecified (principal)

== ENCOUNTER 2024-12-30 08:48 | Outpatient (REF) | payer OTHER, SELFPAY ==
[2024-12-30 16:35] LABS: Urine Cytology See Pathology rpt
== END 2024-12-30 08:49 | disposition home or self-care (01) ==
LOC: HO.LAB 08:48
PROVIDERS: PCP General Practice; Visit Provider Urology
DX: R39.15 Urgency of urination (principal); R35.0 Frequency of micturition; N32.81 Overactive bladder; N39.0 Urinary tract infection, site not specified
CPT/HCPCS: 51798; 81003; 88112; 99212

== ENCOUNTER 2025-02-23 13:31 | Outpatient (REF) | payer OTHER, SELFPAY ==
--- NOTE | ~2025-02-23 | US_ITS ---
EXAMINATION: US KIDNEY BILATERAL HISTORY: N32.81 - Overactive bladder TECHNIQUE: Real-time grayscale ultrasound imaging of the kidneys was performed and images were reviewed. COMPARISON: Comparison is made with the prior examination dated 04/03/2023. FINDINGS: Right kidney: The right kidney measures 0 x 4.6 x 5.6 cm. Renal parenchymal echotexture and thickness are normal. There are no masses. There is mild prominence of the calyces without definite hydronephrosis. Scattered echogenic foci may represent calcified vessels. Left Kidney: The left kidney measures 9.7 x 4.8 x 5.3 cm. Renal parenchymal echotexture and thickness are normal. There are no masses. There is mild prominence of the calyces without definite hydronephrosis. Scattered echogenic foci may represent calcified vessels. US/US renal BI IMPRESSION: Prominence of the calyces of both kidneys without definite hydronephrosis. Electronically signed by: Gamaliel Barrios MD 02/23/2025 02:00 PM EDT
--- OUTSIDE RECORDS SUMMARY | 2025-02-23 13:50 | XMS_ITS | Encounter Summary ---
Author Organization [employer] Address [address] [facility] 7t [place] [address] Care Team Providers Care Shell Coremaker Name Role Phone Yecenia Hood MD Primary Care Provider [phone] Reason for Visit * Reason Comments Med Refill Encounter Details Date Type Department Care Team ([facility] st Contact Info) Description 05/08/2023 Refill [facility] MED & PEDS [address] [place] [address] Faizan Ty FNP Social History Tobacco Use [...] documented as of this encounter Care Teams Shell Coremaker Relationship Specialty Start Date End Date Yecenia Hood MD [address] [place] [address] PCP - General Family Medicine 06/14/20 documented as of this encounter
--- OUTSIDE RECORDS SUMMARY | 2025-02-23 13:50 | XMS_ITS | Encounter Summary ---
Author Organization [employer] Address [address] [place] [address] Care Team Providers Care Grounds Maintenance Supervisor Name Role Phone Yecenia Hood MD Primary Care Provider [phone] Encounter Details Date Type Department Care Team (Late st Contact Info) Description 10/05/2022 Orders Only [facility] [address] [place] [address] Emma aCzares LPN Social History Tobacco Use Types Packs/Day [...] on filedocumented in this encounter Care Teams Grounds Maintenance Supervisor Relationship Specialty Start Date End Date Yecenia Hood MD [address] [place] [address] PCP - General Family Medicine 06/14/20 documented as of this encounter
--- OUTSIDE RECORDS SUMMARY | 2025-02-23 13:50 | XMS_ITS | Encounter Summary ---
Author Organization [employer] Address [address] [address] [facility] [place] [address] Care Team Providers Care Equipment Operator Warehouse Name Role Phone Yecenia Hood MD Primary Care Provider [phone] Encounter Details Date Type Department Care Team (Late st Contact Info) Description 01/01/2023 Orders Only [facility] MED & PEDS [address] [place] [address] Nava Khan LPN Social History Tobacco Use [...] documented as of this encounter Care Teams Equipment Operator Warehouse Relationship Specialty Start Date End Date Yecenia Hood MD [address] [place] [address] PCP - General Family Medicine 06/14/20 documented as of this encounter
--- OUTSIDE RECORDS SUMMARY | 2025-02-23 13:50 | XMS_ITS | Encounter Summary ---
Author Organization [employer] Address [address] [facility] 7t [place] [address] Care Team Providers Care Livestock Nutritionist Name Role Phone Yecenia Hood MD Primary Care Provider [phone] Encounter Details Date Type Department Care Team (Late st Contact Info) Description 06/20/2023 Orders Only [facility] MEDICINE [address] [place] [address] Provider, MD Vadim Social History Tobacco Use [...] this encounter Results * Hm Colonoscopy (07/24/2021) Historical Provider HEALTH MAINTENANCE Final Result documented in this encounter Visit Diagnoses Not on filedocumented in this encounter Additional Health Concerns Assessment Noted Time PHQ-9 Depression Total Score: 5 05/21/20 23 9:45 AM EDT documented as of this encounter Care Teams Livestock Nutritionist Relationship Specialty Start Date End Date Yecenia Hood MD [address] [place] [address] PCP - General Family Medicine 06/14/20 documented as of this encounter
--- OUTSIDE RECORDS SUMMARY | 2025-02-23 13:50 | XMS_ITS | Encounter Summary ---
Author Organization [employer] Address [address] [place] [address] Care Team Providers Care Slot Floorperson Name Role Phone Yecenia Hood MD Primary Care Provider [phone] Encounter Details Date Type Department Care Team (Late st Contact Info) Description 08/26/2024 Orders Only [facility] [address] [place] [address] Yecenia Hood MD [address] [place] [address] Social History Tobacco Use Types Packs/Day Years [...] the past 12 months, has t he [employer], gas, oil or water [employer] threatened to shut off services in your [...] EST Narrative 09/29/2024 4:35 PM EST ? [facility] [place] ? [address] ?[place] [address] ? Mammography Report ? Signed ? Patient: Nunez,Iris ?MR#: [id number] ? : 1950 ?Acct:[id number] ? Age/Sex: 74 / F ?ADM Date: 12/10/24 ? Loc: HO.MAMMO ? Attending Dr: Yecenia Hood MD ? Ordering Physician: Yecenia Hood ?Results: 1Negative ? Date of Service: 12/10/24 ?Follow Up: 1 Year From Orig ?? inal Mammogram ? Procedure(s): MM tomosynthesis screening BI ?? Accession Number(s): [id number] ? cc: Yecenia Hood ? EXAMINATION: ?? [...] DD/ 1410 ? TD/TT: 09/23/24 1420 ? Gold Wheel Blocker And Polisher: ? Procedure Note Jamilah Cartwright - 09/29/2024 [place] [facility] [address] [place], [place] [address] Mammography Report Signed Patient: Yandy Nunez#: [id number] : 1Acct:[id number] Age/Sex: 74 / FADM Date: 09/23/24 Loc: HO.MAMMO Attending Dr: Yecenia Hood MD Ordering Physician: Sherry Hoodults: 1Negative Date of Service: 09/23/24Follow Up: 1 Year From Orig inal Mammogram Procedure(s): MM tomosynthesis screening BI Accession Number(s): [id number] cc: Yecenia Hood EXAMINATION: MM SCREENING DIGITAL [...] by: Rachael Rowland DO 09/29/2024 04:32 PM [facility] Dictated By: Rachael Rowland DO Signed By: <Electronically signed by Rachael Rowland DO in OV> 09/29/24 1632 DD/ 1410 TD/TT: 09/23/24 1420 Gold Wheel Blocker And Polisher: us Yecenia Hood MD IMG BI PROCEDURES Edited Resul t - Final documented in this encounter Visit Diagnoses Not on filedocumented in this encounter Additional Health Concerns Assessment Noted Time PHQ-9 Depression Total Score: 2 02/18/20 24 9:32 AM EDT documented as of this encounter Care Teams Slot Floorperson Relationship Specialty Start Date End Date Yecenia Hood MD [address] [place] [address] PCP - General Family Medicine 06/14/20 documented as of this encounter
--- OUTSIDE RECORDS SUMMARY | 2025-02-23 13:50 | XMS_ITS | Encounter Summary ---
Author Organization [employer] Address [address] [facility] 7t [place] [address] Care Team Providers Care Liner Checker Name Role Phone Yecenia Hood MD Primary Care Provider [phone] Encounter Details Date Type Department Care Team (Latest Contact Info) Description 04/13/2022 Abstract [facility] CONVERSIONS Dental, Provider, DDS Social History [...] on filedocumented in this encounter Care Teams Liner Checker Relationship Specialty Start Date End Date Yecenia Hood MD [address] [place] [address] PCP - General Family Medicine 06/14/20 documented as of this encounter
--- OUTSIDE RECORDS SUMMARY | 2025-02-23 13:50 | XMS_ITS | Encounter Summary ---
Author Organization [employer] Address [address] [facility] 7t [place] [address] Care Team Providers Care Health Facilities Surveyor Name Role Phone Yecenia Hood MD Primary Care Provider [phone] Reason for Visit * Reason Comments Med Refill Encounter Details Date Type Department Care Team ([facility] st Contact Info) Description 02/20/2025 Refill [facility] [address] [place] [address] Yecenia Hood MD [address] [place] [address] Social History Tobacco Use Types Packs/Day Years [...] documented as of this encounter Care Teams Health Facilities Surveyor Relationship Specialty Start Date End Date Yecenia Hood MD [address] [place] [address] PCP - General Family Medicine 06/14/20 documented as of this encounter
--- OUTSIDE RECORDS SUMMARY | 2025-02-23 13:50 | XMS_ITS | Encounter Summary ---
Author Organization [employer] Address [address] [place] [address] Care Team Providers Care Geospatial Information Scientist Name Role Phone Yecenia Hood MD Primary Care Provider [phone] Encounter Details Date Type Department Care Team (Late st Contact Info) Description 11/21/2022 Orders Only [facility] MED & PEDS [address] [place], [place] [phone] Nava Khan LPN Social History Tobacco Use [...] on filedocumented in this encounter Care Teams Geospatial Information Scientist Relationship Specialty Start Date End Date Yecenia Hood MD [address] [place] [address] PCP - General Family Medicine 06/14/20 documented as of this encounter
--- OUTSIDE RECORDS SUMMARY | 2025-02-23 13:50 | XMS_ITS | Encounter Summary ---
Author Organization [employer] Address [address] [facility] [address] [place] [address] Care Team Providers Care Gas Engine Repairer Name Role Phone Yecenia Hood MD Primary Care Provider [phone] Encounter Details Date Type Department Care Team (Late st Contact Info) Description 10/23/2022 Orders Only [facility] MED & PEDS [address] [place], [place] [phone] Nava Khan LPN Social History Tobacco Use [...] on filedocumented in this encounter Care Teams Gas Engine Repairer Relationship Specialty Start Date End Date Yecenia Hood MD [address] [place] [address] PCP - General Family Medicine 06/14/20 documented as of this encounter
--- OUTSIDE RECORDS SUMMARY | 2025-02-23 13:50 | XMS_ITS | Clinical Summary ---
Author Organization [employer] Address [address] [place] [address] Care Team Providers Care Agricultural Produce Sorter Name Role Phone Yecenia Hood MD Primary Care Provider [phone] Allergies Active Allergy Reactions Criticality Noted Date [...] 1 VEZ AL WILBER 09/27/20 23 Active Readi-Cat 2 2 % suspension TAKE DIRECTED 12/01/19 24 Active valACYclovir (Valtrex) 1 g tablet TAKE 1 TABLET BY MOUTH EVERY DAY FOR 5 DAYS 11/28/19 24 Active atenolol (Tenormin) 25 MG tablet [...] mellitus with other specified complication, unspecified whether parts counterman insulin use ([facility]) USE TWICE DAILY DIRECTED 100 each 11 06/13/20 24 Active TRUEplus Lancets 33G miscIndications :Type 2 diabetes mellitus with other specified complication, unspecified whether parts counterman insulin use ([facility]) USE DIRECTED EVERY DAY 100 each 06/13/20 24 Active Multiple Vitamins-Minera ls (CertaVite/Anti oxidants) tablet TAKE 1 TABLET BY MOUTH EVERY MORNING WITH FOOD 90 tablet 3 08/14/20 24 Active Calcium Carb-Cholecalci ferol 500-10 MG-MCG chewable tablet TAKE 1 TABLET BY MOUTH EVERY MORNING (CHEW) 90 tablet 3 08/14/20 24 Active atorvastatin (Lipitor) 40 MG tablet TAKE 1 TABLET BY MOUTH EVERY EVENING 90 tablet 3 10/14/20 24 Active acetaminophen (Tylenol 8 Hour) 650 MG [...] BREAKFAST 90 capsule 3 12/20/19 25 Active B Complex Vitamins (Vitamin B Complex) capsule TAKE 1 CAPSULE BY MOUTH EVERY MORNING 30 each 01/29/20 25 Active FREESTYLE LITE test stripIndication s:Type 2 diabetes mellitus with hyperglycemia, without long-term current use of insulin ([facility]) TEST BLOOD SUGAR TWICE DAILY 100 strip 01/31/20 25 Active levothyroxine (Synthroid, Levoxyl) 50 MCG tablet TAKE 1 TABLET BY MOUTH EVERYDAY AT NOON 90 tablet 1 02/13/20 25 Active ARIPiprazole (Abilify) 5 MG tabletIndicatio ns:Bipolar depression (CMS/HCC) TAKE 1 TABLET BY MOUTH EVERY MORNING 90 tablet 1 02/13/20 25 Active Eliquis 5 MG tablet TAKE 1 TABLET BY MOUTH TWICE DAILY IN THE MORNING AND IN THE EVENING 60 tablet 2 02/21/20 25 Active levothyroxine (Synthroid, Levoxyl) 50 MCG tablet TAKE 1 TABLET BY MOUTH EVERYDAY AT NOON 90 tablet 3 01/01/20 24 025 Discontinued b complex vitamins capsule Take 1 capsule by mouth in the morning. 30 capsule 11 01/21/20 24 025 Discontinued FREESTYLE LITE test stripIndication s:Type 2 diabetes mellitus with hyperglycemia, without long-term current use of insulin (CMS/HCC) TEST BLOOD SUGAR TWICE DAILY 100 strip 11 01/29/20 24 025 Discontinued ARIPiprazole (Abilify) 5 MG tabletIndicatio ns:Bipolar depression (CMS/HCC) Take 1 tablet (5 mg) by mouth Once per day. 90 tablet 1 08/15/20 24 025 Discontinued Eliquis 5 MG tablet TAKE 1 TABLET BY MOUTH TWICE DAILY IN THE MORNING AND IN THE EVENING 60 tablet 2 11/17/19 25 025 Discontinued Active Problems Problem Noted Date [...] (05/28/2023 8:20 AM EDT): Continue followup with [facility] oncology No re-occurrence per patient Continue Lymparza Assessment & Plan (01/17/2023 11:08 AM EDT): Continue followup with [facility] oncology No re-occurrence per patient Constipation 01/15/2023 [...] Will refer to reestablish outpatient therapy. 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 F/U with me in 3 months. She agrees with the plan Assessment & Plan (02/13/2023 11:44 AM EDT): Still doing OK. Continue Abilify 5 mg daily, Clonazepam 0.5 mg BID prn. Not interested in therapy at this time. 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 F/U with me in 2-3 months. She agrees with the plan Assessment & Plan (01/17/2023 11:10 AM EDT): Mikes Faizan Ty for medication management Plan is [...] Encounters Date Type Department Care Team Description 02/20/2025 Refill [facility] [address] [place] [place] [address] Yecenia Hood MD 02/12/2025 [address] [facility] [address] [place] [address] Yecenia Hood MD Bipolar depression ([facility]) 01/29/2025 Refill [facility] MEDIC[facility] [address] [place] [address] Yecenia Hood MD Type 2 diabetes mellitus with hyperglycemia, without long-term current use of insulin ([facility]) 01/28/2025 [address] [facility] [address] [place] [address] Yecenia Hood MD 12/30/2024 Orders Only GENERIC EXTERNAL DATA DEPARTMENT Provider, Generic External Data 12/19/2024 [address] [facility] [address] [place] [address] Yecenia Hood MD Gastroesophageal reflux disease without esophagitis 12/15/2024 [address] [facility] [address] [place] [address] Yecenia Hood MD from Last 3 Months [...] is your housing situation today? I have octaviasofiya tilley 08/05/[address] you [...] 01/15/2023, Additional history exists Mammogram 09/23/2025 09/23/2024, 1203/2023, 09/13/2022, Additional history exists Tobacco Screening 11/04/2025 [...] Procedure Name Priority Date/Time Associated Diagnosis Comments CYTOPATH-CELL ENHANCED Routine 4:32 PM EDT POCT GLYCATED HEMOGLOBIN, TOTAL Routine 10/24/2024 1:11 PM EST Type 2 diabetes mellitus with other specified complication, without long-term current use of insulin ([facility]) BI MAMMOGRAM SCREENING TOMOSYNTHESIS BILATERAL Routine 09/23/2024 [...] Recently Relevant to Health Maintenance Results * Cytopath-cell enhanced (12/30/2024 4:32 PM EDT) 12/30/2024 4:32 PM EDT 12/31/2024 8:37 AM EDT [facility] - 01/01/2025 2:02 PM EDT ----- ------- Name: Yandy Nunze ? Age/Sex: 74/F ? : 1950 Unit#: [id number] ?? Attend Dr: Aidan Horton MD ?Re12/30/24 ?Status: DEP REF ? Location: .LAB ?Disch: ? ----- ------- SPEC : [id number] ? RECD: 12/31/24 ? STATUS: ??SOUT ? REQ NUM: [id number] ? OCTAVIA: 12/30/24-1632 ? SUBM DR: Aidan Horton MD ? ENTERED: ??12/31/24-931 ?SP TYPE: Cytology ? OTHR DR: Yecenia Hood ? ORDERED: ??Cyto-enhanced ? Diagnosis ?? Urine: ??Negative for high-grade urothelial carcinoma. ??See comment. ? COMMENT: Cellular specimen consisting of single urothelial cells with reactive changes, ?? relatively numerous acute inflammatory cells, squamous cells and rare red blood cells. ?Clinical History Urinary tract infection, site not specified ? Material Received ?? Urine ? Gross Description Received is 70 cc of clear yellow fluid from which a ThinPrep slide is prepared. Copies To: ?? Aidan Horton MD ?? [facility] ?? [address] ?? [place] [address] ?? [phone] ?? [email or web address] ?? Yecenia Hood ?? [address] ?? [place] [address] ?? [phone] ----- ------- Signed (signature on file) Dino Cooper MD 01/01/25 1402 ? ----- ------- ? END OF REPORT ? us Generic External Data Provider LAB CYTOLOGY [place] Final Result [facility] [address] [place] [address] [phone] * POCT HGB A1C (10/24/2024 1:11 PM EST) Hemoglobin A1C 5.7 4.0 - 6.0 % QC Media Lot # [id number] Lot# Expiration Date 135 Blood 10/24/2024 1:11 PM EST us Yecenia Hood MD POINT OF CARE TEST ENTER/EDIT ORDERABLES Final Result * BI Mammogram Screening Tomosynthesis Bilateral (09/23/2024 2:10 PM EST) Anatomical Region Laterality Modality Breast Bilateral Mammography 09/23/2024 2:10 PM EST Narrative 09/29/2024 4:35 PM EST ? [facility] ? [address] ?[place] [address] ? Mammography Report ? Signed ? Patient: Nunez,Iris ?MR#: [id number] ? : 1950 ?Acct:[id number] ? Age/Sex: 74 / F ?ADM Date: 12//24 ? Loc: HO.MAMMO ? Attending Dr: Yecenia Hood MD ? Ordering Physician: Yecenia Hood ?Results: 1Negative ? Date of Service: 12//24 ?Follow Up: 1 Year From Orig ?? inal Mammogram ? Procedure(s): MM tomosynthesis screening BI ?? Accession Number(s): [id number] ? cc: Yecenia Hood ? EXAMINATION: ?? [...] DD/ 1410 ? TD/TT: 09/23/24 1420 ? Director Life: ? Procedure Note Chay, Image - 09/29/2024 [facility] [address] [place] [address] Dr. [place], [place] [address] Mammography Report Signed Patient: Ishaan Nunez#: [id number] : 1Acct:[id number] Age/Sex: 74 / FADM Date: 09/23/24 Loc: [facility] Attending Dr: Yecenia Hood MD Ordering Physician: Sherry Hoodults: 1Negative Date of Service: 09/23/24Follow Up: 1 Year From Orig ina Mammogram Procedure(s): MM tomosynthesis screening BI Accession Number(s): [id number] cc: Yecenia Hood EXAMINATION: MM SCREENING DIGITAL [...] by: Rachael Rowland DO 09/29/2024 04:32 PM EST Dictated By: Rachael Rowland DO Signed By: <Electronically signed by Rachael Rowland DO in OV> 09/29/24 1632 DD/ 1410 TD/TT: 09/23/24 1420 Director Life: Yecenia Hood MD [facility] BI PROCEDURES Edited Resul t - Final * Albumin, Random Urine W/Creatinine (01/21/2024 10:26 AM EDT) Creatinine, Urine 133.86 mg/dL [facility] Microalbumin Urine 18.0 mg/L [facility] Microalbum Creatinine Ratio Ur 13.4 <30 ug/mg cr [facility] Comment:Albumin/Creatinine R atio Reference Ranges: Normal: < 30 ug/mg creatinine Microalbuminuria: 30 - 300 ug/mg creatinineClinical Albuminuria: > 300 ug/mg creatinine Urine (Urine, Random) 01/21/2024 10:26 AM EDT 01/21/2024 11:25 AM EDT Yecenia Hood MD LAB URINE ORDERABLES Final Res ult Performing Organization Address [facility] Co de Phone Number [facility] [address] [place] [phone] * Hepatitis C Antibody with Reflex to HCV, RNA, Quantitative, Real-Time PCR (01/21/2024 10:26 AM EDT) Hepatitis C Antibody Nonreactive Nonreactive [facility] Comment:Antibodies to HCV no t detected; does not exclude early acuteHCV infection. Blood Venous blood specimen / Unknown 01/21/2024 10:26 AM EDT 01/21/2024 11:44 AM EDT Yecenia Hood MD LAB BLOOD ORDERABLES Final Res ult Performing Organization Address [facility] Co de Phone Number [facility] [address] [place] [phone] * Lipid Panel, Standard (01/21/2024 10:26 AM EDT) Triglycerides 75 <150 mg/dL [facility] Comment:Desirable Triglyceri de: less than 150 mg/dLBorderline High Triglyceride 150-199 mg/dLHigh Triglyceride: 200-499 mg/dLVery High Triglyceride: greater than or equal to 5OO mg/dL Cholesterol 167 <200 mg/dL [facility] Comment:Desirable Cholestero l: less than 200 mg/dLBorderline High Cholesterol: 200-239 mg/dLHigh Cholesterol: greater than 239 mg/dL LDL Cholesterol Calculated 93 <100 mg/dL [facility] Comment:Desirable LDL: less than 100 mg/dLNear Optimal/Above Optimal LDL: 110- 129 mg/dLBorderline High LDL: 130-159 mg/dLHigh LDL: 160-189 mg/dLVery High LDL: greater than or equal to 190 mg/dL HDL Cholesterol 59 >40 mg/dL [facility] Comment:Desirable HDL: great er than 40 mg/dL Note: This HDL assay may give artificially low results in patients with liver disease. Blood Venous blood specimen / Unknown 01/21/2024 10:26 AM EDT 01/21/2024 11:44 AM EDT us Yecenia Hood MD LAB BLOOD ORDERABLES Final Res ult [facility] [address] [place] [address] [phone] * Hm Colonoscopy (07/24/2021) us Historical Provider HEALTH MAINTENANCE Final Result from Last 3 Months or Most Recently Relevant to Health Maintenance Insurance [facility] [employer] (HMO D-SNP) [facility] Care Teams Agricultural Produce Sorter Relationship Specialty Start Date End Date Yecenia Hood MD [address] [place] [address] PCP - General Family Medicine 06/14/20
== END 2025-02-23 13:32 | disposition home or self-care (01) ==
LOC: HO.US 13:31
PROVIDERS: PCP General Practice; Visit Provider Urology
DX: N32.81 Overactive bladder (principal)
CPT/HCPCS: 76775

== ENCOUNTER → 2025-02-23 13:35 | Outpatient (BNV) | payer OTHER, SELFPAY | PROVIDERS: PCP General Practice; Visit Provider Radiology Diagnostic Radiology | DX: N20.0 Calculus of kidney (principal) | CPT/HCPCS: 76775 ==

== ENCOUNTER 2025-03-05 08:25 | Outpatient (AMB) | payer OTHER, SELFPAY ==
--- NOTE | 2025-03-05 08:44 | A.OFFVIS_ITS ---
Intake Visit Reasons: 7w/US Intake Note: Patient is present for 7 week follow up/US * Renal US 02/23 Urology Medication:NONE Antibiotic Allergy:NONE Blood Thinner:APIXABAN PVR:0ml Learning Program Manager Required: Yes Allergies No Known Allergies Allergy (Verified 03/05/25 08:45) Medication List - Last Reconciled 03/05/25 by Aidan Horton MD amlodipine 10 mg PO DAILY apixaban (Eliquis) 5 mg PO BID aripiprazole 5 mg PO QAM atenolol 25 mg PO BEDTIME atorvastatin 40 mg PO BEDTIME blood sugar diagnostic As directed clonazepam 1 mg PO BEDTIME lancets As directed lidocaine 5% 1 patch topical DAILY PRN loratadine (Allerclear) 10 mg PO DAILY PRN metformin 250 mg PO DAILY omeprazole 20 mg PO DAILY HPI Comments Details: 03/05/25--Yandy is a 74-year-old female who has been followed due to lower urinary tract symptoms urgency, urinary frequency, and urinary incontinence. Comorbidity diabetes. History of ovarian cancer status post total hysterectomy. Patient states she is currently on chemotherapy due to recurrence of the cancer. She had a port placed for the chemotherapy. In regards to her urinary symptoms, The patient had a sacral InterStim lead placed July 2020 which was removed 08/13/2023 because she stated it no longer was working well. She has failed other therapy modalities. The patient was last seen 12/30/2024 urinalysis was done notable for microscopic hematuria. She was sent for a renal ultrasound as well as urine was sent for cytology. I have reviewed results with the patient renal ultrasound negative for renal masses. Urine cytology sent on 12/30/2024 was negative for malignant cells. Urinalysis today persistent microscopic hematuria, 1+ blood, 1+ protein. I have discussed further evaluation of her bladder with cystoscopy. We will hold on other testing for her bladder symptoms such as urodynamics due to her current chemotherapy treatments. The patient uses pads prn. [facility] Medical History Uterine cancer Ovarian cancer Acute hemorrhoid Osteoarthritis Back pain Arthritis Thyroid disease Diabetes GERD (gastroesophageal reflux disease) Peptic ulcer Anxiety Depression Elevated cholesterol HTN (hypertension) Surgical History History of surgery Previous back surgery H/O: hysterectomy H/O cystoscopy Hx of tonsillectomy H/O cataract extraction History of esophagogastroduodenoscopy (EGD) H/O colonoscopy H/O excision of mass Family History Mother Diabetes HTN (hypertension) Father HTN (hypertension) Sister Diabetes Lymphoma of lymph nodes Social History Household Members: None Housing: Apartment Do you presently have visiting nurse or other home services: Yes (DAYLIN BAXTER) Alcohol intake: never Patient Tobacco Use Status: Never used Tobacco Advance Directives Date on File: 02/15/22 service: No Current occupational status: disabled Gender identity: Female Female Reproductive History Menstrual Age of Menarche: 10 Review of Systems Const All systems reviewed & are unremarkable except as noted in HPI and below Reports no additional complaints Eyes Reports no additional complaints ENT Reports no additional complaints Card Reports no additional complaints Resp Reports no additional complaints GI Reports no additional complaints Reports as per HPI Musc Reports no additional complaints Skin/Breast Reports system reviewed and no additional complaints, except as documented Neuro Reports no additional complaints Psych Reports no additional complaints Endo Reports no additional complaints Tre/Lymph Reports no additional complaints Aller/Immun Reports no additional complaints Results AMB Urinalysis, Automated UA Leukoctes 0 [place]/uL Last Edit by Sharona Waldrop on 03/05/25 09:50 UA Nitrite Negative Last Edit by Sharona Waldrop on 03/05/25 09:50 UA Urobilinogen 17 mg/dL Last Edit by Sharona Waldrop on 03/05/25 09:50 UA Protein 0.3 mg/dL Last Edit by Sharona Waldrop on 03/05/25 09:50 UA pH 5.0 Last Edit by Sharona Waldrop on 03/05/25 09:50 UA Blood 25 Aidan/uL Last Edit by Sharona Waldrop on 03/05/25 09:50 UA Specific [place] 1.030 Last Edit by Sharona Waldrop on 03/05/25 09:50 UA Ketone Negative Last Edit by Sharona Waldrop on 03/05/25 09:50 UA Bilirubin 0 mg/dL Last Edit by Sharona Waldrop on 03/05/25 09:50 UA Glucose 0 mg/dL Last Edit by Sharona Waldrop on 03/05/25 09:50 Results Reviewed Results Reviewed: Laboratory Last Values Urine pH (Auto) 5.0 03/05/25 09:18 Specific [place] (Auto) 1.030 03/05/25 09:18 Urine Protein (Auto) 0.3 mg/dL 03/05/25 09:18 Glucose (UA)(Auto) 0 mg/dL 03/05/25 09:18 Urine Ketones (Auto) Negative 03/05/25 09:18 Urine Blood (Auto) 25 Aidan/uL 03/05/25 09:18 Urine Nitrite (Auto) Negative 03/05/25 09:18 Urine Bilirubin (Auto) 0 mg/dL 03/05/25 09:18 Urine Urobilinogen (Auto) 17 mg/dL 03/05/25 09:18 Leukocyte Esterase (Auto) 0 [place]/uL 03/05/25 09:18 Date of Service: 02/23/25 EXAMINATION: US KIDNEY BILATERAL HISTORY: N32.81 - Overactive bladder TECHNIQUE: Real-time grayscale ultrasound imaging of the kidneys was performed and images were reviewed. COMPARISON: Comparison is made with the prior examination dated 04/03/2023. FINDINGS: Right kidney: The right kidney measures 0 x 4.6 x 5.6 cm. Renal parenchymal echotexture and thickness are normal. There are no masses. There is mild prominence of the calyces without definite hydronephrosis. Scattered echogenic foci may represent calcified vessels. Left Kidney: The left kidney measures 9.7 x 4.8 x 5.3 cm. Renal parenchymal echotexture and thickness are normal. There are no masses. There is mild prominence of the calyces without definite hydronephrosis. Scattered echogenic foci may represent calcified vessels. IMPRESSION: Prominence of the calyces of both kidneys without definite hydronephrosis. Urine cytology-- Collected: 12/30/24 Location: .LAB Received: 12/31/24 Diagnosis Urine: Negative for high-grade urothelial carcinoma. See comment. COMMENT: Cellular specimen consisting of single urothelial cells with reactive changes, relatively numerous acute inflammatory cells, squamous cells and rare red blood cells. Clinical History Urinary tract infection, site not specified Material Received Urine Gross Description Received is 70 cc of clear yellow fluid from which a ThinPrep slide is prepared. EXAMINATION: 05/24/23 XR PELVIS CLINICAL INFORMATION: Other neuromuscular dysfunction of bladder COMPARISON: None available. TECHNIQUE: AP view of the pelvis. FINDINGS: Neural stimulation device and probe over the right iliac wing and gluteal muscle with lead projecting over the right sacral region at about S3-S4.. No acute osseous abnormality. No fracture. No focal bone destruction. Advanced degenerative spondylosis right hip with joint narrowing, subchondral cystic changes and osteosclerosis and marginal bone spurs. Mild degenerative joint disease of the left hip. The sacroiliac joints are normal. Mild degenerative change of the symphysis pubis. Moderate volume of stool in colon. No abnormally dilated bowel loop. IMPRESSION: 1. Neural stimulation device in place. 2. No acute abnormality of pelvis. 3. Advanced degenerative spondylosis of the right hip. Assessment & Plan Assessment & Plan (1) Urgency of micturition: Code(s): R39.15 - Urgency of urination Category: Medical (2) Frequency of micturition: Code(s): R35.0 - Frequency of micturition Category: Medical (3) Overactive bladder: Code(s): N32.81 - Overactive bladder Category: Medical (4) Microscopic hematuria: Code(s): R31.29 - Other microscopic hematuria Category: Medical (5) Urinary incontinence: Code(s): R32 - Unspecified urinary incontinence Category: Medical Plan The patient was last seen 12/30/2024 urinalysis was done notable for microscopic hematuria. She was sent for a renal ultrasound as well as urine was sent for cytology. I have reviewed results with the patient renal ultrasound negative for renal masses. Urine cytology sent on 12/30/2024 was negative for malignant cells. Urinalysis today persistent microscopic hematuria, 1+ blood, 1+ protein. I have discussed further evaluation of her bladder with cystoscopy. We will hold on other testing for her bladder symptoms such as urodynamics due to her current chemotherapy treatments. The patient uses pads prn. Orders: Orders AMB Urinalysis Automated Today Z13.9 - Encounter for screening, unspecified Patient Instructions: The patient had an opportunity to ask questions regarding treatment plan. The patient expressed understanding and agreement with the above treatment plan. The patient is aware they should contact our office by phone for worsening of their current condition or the appearance of new symptoms. Compliance is encouraged with any medications and followup testing that is ordered. It is a privilege to be allowed the opportunity to participate in the urologic care of your patient. If you have any questions or concerns regarding treatment for the above conditions please do not hesitate to contact me. The office telephone contact is [phone]. This note is constructed in part using voice recognition software. While every effort has been made to ensure accuracy store management trainee errors may have been included. Yours sincerely, Aidan Horton MD Coding Level of Care Code Est Pt Level 4 (08335) Complex EM visit Add On G2211 Diagnoses Urgency of micturition R39.15 Frequency of micturition R35.0 Overactive bladder N32.81 Microscopic hematuria R31.29 Urinary incontinence R32
== END 2025-03-05 09:47 | disposition home or self-care (01) ==
LOC: HO.HUSH 08:26
PROVIDERS: PCP General Practice; Visit Provider Urology
DX: R39.15 Urgency of urination (principal); R35.0 Frequency of micturition; N32.81 Overactive bladder; R31.29 Other microscopic hematuria; R32 Unspecified urinary incontinence; Z13.9 Encounter for screening, unspecified
CPT/HCPCS: 99214; G2211

== ENCOUNTER → 2025-03-05 08:25 | Outpatient (BNVA) | payer OTHER, SELFPAY | PROVIDERS: PCP General Practice; Visit Provider Urology | DX: R39.15 Urgency of urination (principal); R35.0 Frequency of micturition; R31.29 Other microscopic hematuria; R32 Unspecified urinary incontinence; N32.81 Overactive bladder | CPT/HCPCS: 81003; 99212 ==

== ENCOUNTER 2025-04-14 16:30 | Outpatient (REF) | payer OTHER, SELFPAY ==
--- NOTE | ~2025-04-14 | US_ITS ---
CLINICAL HISTORY: LOCALIZED SWELLING OF RIGHT LOWER EXTREMITY VENOUS DUPLEX ULTRASOUND RIGHT LOWER EXTREMITY Comparison: US/SR - US VENOUS DUPLEX LE BI - 05/13/24 12:16 EDT Findings: The visualized deep veins are fully compressible with normal Doppler color flow and spectral tracings. Limited visualization of the peroneal vein secondary to subcutaneous edema in the calf. No popliteal cyst. IMPRESSION: 1. Negative for right lower extremity deep vein thrombosis, where visualized. This document has been electronically signed by: Alisha Cortez DO on 04/14/2025 17:41:11
--- OUTSIDE RECORDS SUMMARY | 2025-04-14 16:32 | XMS_ITS | Encounter Summary ---
Author Organization [facility] Address [address] [place] [address] [address] [place] [address] Care Team Providers Care Sock Turner Name Role Phone Yecenia Hood MD Primary Care Provider [phone] Encounter Details Date Type Department Care Team ([facility] Contact Info) Description 06/20/2023 Orders Only [address] [address] ProviderVadim MD Social History Tobacco Use Types Packs/Day Years [...] as of this encounter Plan of Treatment Upcoming Encounters Date Type Department Care Team (Late Contact Info) Description 04/22/2025 11:00 AM EDT Clinical Support [address] [address] 06/08/2025 2:30 PM EDT Office Visit [address] [address] Yecenia Hood MD [address] [place] [phone] documented as of this encounter Procedures Procedure [...] documented as of this encounter Care Teams Sock Turner Relationship Specialty Start Date End Date Yecenia Hood MD [address] [place] [phone] PCP - General Family Medicine 06/14/20 documented as of this encounter
== END 2025-04-14 16:31 | disposition home or self-care (01) ==
LOC: HO.US 16:30
PROVIDERS: PCP General Practice; Visit Provider Nurse Practitioner Family
DX: R22.41 Localized swelling, mass and lump, right lower limb (principal)
CPT/HCPCS: 93971

== ENCOUNTER → 2025-04-14 17:07 | Outpatient (BNV) | payer OTHER, SELFPAY | PROVIDERS: PCP General Practice; Visit Provider Radiology Diagnostic Radiology | DX: R22.41 Localized swelling, mass and lump, right lower limb (principal) | CPT/HCPCS: 93971 ==

== ENCOUNTER 2025-04-16 13:26 | Outpatient (AMB) | payer OTHER, SELFPAY ==
--- NOTE | 2025-04-16 12:53 | A.OFFVIS_ITS ---
Intake Visit Reasons: Cysto Intake Note: Patient is present for a cystoscopy Urology Medication:NONE Antibiotic Allergy:NONE Blood Thinner:APIXABAN General Passenger Agent Required: Yes General Passenger Agent Name: [id number] Allergies No Known Allergies Allergy (Verified 04/16/25 13:46) Medication List - Last Reconciled 04/16/25 by Aidan Horton MD amlodipine 10 mg PO DAILY apixaban (Eliquis) 5 mg PO BID aripiprazole 5 mg PO QAM atenolol 25 mg PO BEDTIME atorvastatin 40 mg PO BEDTIME blood sugar diagnostic As directed clonazepam 1 mg PO BEDTIME lancets As directed lidocaine 5% 1 patch topical DAILY PRN loratadine (Allerclear) 10 mg PO DAILY PRN metformin 250 mg PO DAILY omeprazole 20 mg PO DAILY vibegron (Gemtesa) 75 mg PO DAILY HPI Comments Details: 04/16/2025--persistent microscopic hematuria. Yandy is here for office cystoscopy. Cystoscopy findings: Bladder wall thickening, no suspicious bladder lesions visualized OAB symptoms: We will start Gemtesa 75 mg daily History of Present Illness - The patient is a 74-year-old female presenting for a cystoscopy to evaluate bladder symptoms. - Bladder wall thickening was noted during the cystoscopic examination, which may contribute to bladder spasms. - Cystoscopy- today 04/16/25: No lesions observed in the bladder 03/05/25--Iris is a 74-year-old female who has been followed due to lower urinary tract symptoms urgency, urinary frequency, and urinary incontinence. Comorbidity diabetes. History of ovarian cancer status post total hysterectomy. Patient states she is currently on chemotherapy due to recurrence of the cancer. She had a port placed for the chemotherapy. In regards to her urinary symptoms, The patient had a sacral InterStim lead placed July 2020 which was removed 08/13/2023 because she stated it no longer was working well. She has failed other therapy modalities. The patient was last seen 12/30/2024 urinalysis was done notable for microscopic hematuria. She was sent for a renal ultrasound as well as urine was sent for cytology. I have reviewed results with the patient renal ultrasound negative for renal masses. Urine cytology sent on 12/30/2024 was negative for malignant cells. Urinalysis today persistent microscopic hematuria, 1+ blood, 1+ protein. I have discussed further evaluation of her bladder with cystoscopy. We will hold on other testing for her bladder symptoms such as urodynamics due to her current chemotherapy treatments. The patient uses pads prn. PFSH Medical History Uterine cancer Ovarian cancer Acute hemorrhoid Osteoarthritis Back pain Arthritis Thyroid disease Diabetes GERD (gastroesophageal reflux disease) Peptic ulcer Anxiety Depression Elevated cholesterol HTN (hypertension) Surgical History History of surgery Previous back surgery H/O: hysterectomy H/O cystoscopy Hx of tonsillectomy H/O cataract extraction History of esophagogastroduodenoscopy (EGD) H/O colonoscopy H/O excision of mass Family History Mother Diabetes HTN (hypertension) Father HTN (hypertension) Sister Diabetes Lymphoma of lymph nodes Social History Household Members: None Housing: Apartment Do you presently have visiting nurse or other home services: Yes ([facility]) Alcohol intake: never Patient Tobacco Use Status: Never used Tobacco Advance Directives Date on File: 02/15/22 service: No Current occupational status: disabled Gender identity: Female Female Reproductive History Menstrual Age of Menarche: 10 Office Procedures Cystoscopy Consent Discussed risk and benefit or proposed procedure with the patient. Information consent for procedure given to the patient. Discussed technical aspects, risks, benefits and alternatives in full. Addressed all of the patient's questions and concerns regarding the procedure. The patient demonstrated knowledge and understanding. They wish to proceed with this procedure. Preparation The patient was prepped in the usual manner. A political cartoonist was present and in the room. Genitalia was prepped with betadine solution in a sterile manner. Lidocaine Jelly 2% was placed into the urethra and 16Fr flexible Olympus cystoscope was inserted into the meatus after adequate lubrication. Procedure Time out per protocol performed. Speculum used as indicated for adequate visualization of urethra, the flexible cystoscope is passed transurethrally: The bladder was inspected in its entirety with utilization retroflexion displaying: Tumor(s): no suspicious bladder lesions visualized Trabeculation: Moderate with focal cellule changes noted Mucosal Erthema: minimal Orifices: normal shape and position Urethra: normal Cystoscopy findings: Bladder wall thickening, no suspicious bladder lesions visualized [id number] DISPOSABLE SCOPE URO-G FLEXIBLE SCOPE Procedure code (CPT) selection complete Office Meds lidocaine HCl 2 % mucosal jelly in applicator Performing Provider: Aidan Horton MD [facility] Administered by: Korin La RN on 04/16/25 14:13 Dose Route Admin Location Dispensed Lot Number Expiration Date NDC Optical Systems Engineer 10 mL intra-urethral 20 mL ciprofloxacin HCl 500 mg tablet Performing Provider: Aidan Horton MD Performing Location: [facility] Administered by: Korin La RN on 04/16/25 14:13 Dose Route Admin Location Dispensed Lot Number Expiration Date NDC Optical Systems Engineer 500 mg PO 1 tab phenazopyridine 200 mg tablet Performing Provider: Aidan Horton MD Performing Location: [facility] Administered by: Korin La RN on 04/16/25 14:13 Dose Route Admin Location Dispensed Lot Number Expiration Date NDC Optical Systems Engineer 200 mg PO 1 tab Results AMB Urinalysis, Automated UA Leukoctes 70 Asia/uL Last Edit by Sharona Waldrop on 04/16/25 16:33 UA Nitrite Negative Last Edit by Sharona Waldrop on 04/16/25 16:33 UA Urobilinogen 3.5 mg/dL Last Edit by Sharona Waldrop on 04/16/25 16:33 UA Protein 0 mg/dL Last Edit by Sharona Waldrop on 04/16/25 16:33 UA pH 5.0 Last Edit by Sharona Waldrop on 04/16/25 16:33 UA Blood 25 Aidan/uL Last Edit by Sharona Waldrop on 04/16/25 16:33 UA Specific [place] 1.010 Last Edit by Sharona Waldrop on 04/16/25 16:33 UA Ketone Negative Last Edit by Sharona Waldrop on 04/16/25 16:33 UA Bilirubin 0 mg/dL Last Edit by Sharona Waldrop on 04/16/25 16:33 UA Glucose 0 mg/dL Last Edit by Sharona Waldrop on 04/16/25 16:33 Results Reviewed Results Reviewed: Laboratory Last Values Urine pH (Auto) 5.0 07/03/25 16:32 Specific [place] (Auto) 1.010 04/16/25 16:32 Urine Protein (Auto) 0 mg/dL 04/16/25 16:32 Glucose (UA)(Auto) 0 mg/dL 04/16/25 16:32 Urine Ketones (Auto) Negative 04/16/25 16:32 Urine Blood (Auto) 25 Aidan/uL 04/16/25 16:32 Urine Nitrite (Auto) Negative 04/16/25 16:32 Urine Bilirubin (Auto) 0 mg/dL 04/16/25 16:32 Urine Urobilinogen (Auto) 3.5 mg/dL 04/16/25 16:32 Leukocyte Esterase (Auto) 70 [place]/uL 04/16/25 16:32 Assessment & Plan Assessment & Plan (1) Frequency of micturition: Code(s): R35.0 - Frequency of micturition Category: Medical (2) Overactive bladder: Code(s): N32.81 - Overactive bladder Category: Medical (3) Microscopic hematuria: Code(s): R31.29 - Other microscopic hematuria Category: Medical (4) Urinary incontinence: Code(s): R32 - Unspecified urinary incontinence Category: Medical Plan Plan - Prescribe Gemtesa 75 mg daily to manage bladder spasms associated with bladder wall thickening. - Schedule a follow-up appointment in3 months to evaluate the patient's response to the medication. Orders: Orders AMB Cystoscopy 04/16/25 R31.29 - Other microscopic hematuria Medications: New vibegron (Gemtesa) 75 mg PO DAILY 30 tabs 5RF Patient Instructions: The patient had an opportunity to ask questions regarding treatment plan. The patient expressed understanding and agreement with the above treatment plan. The patient is aware they should contact our office by phone for worsening of their current condition or the appearance of new symptoms. Compliance is encouraged with any medications and followup testing that is ordered. It is a privilege to be allowed the opportunity to participate in the urologic care of your patient. If you have any questions or concerns regarding treatment for the above conditions please do not hesitate to contact me. The office telephone contact is [phone]. This note is constructed in part using voice recognition software. While every effort has been made to ensure accuracy water technician errors may have been included. Yours sincerely, Aidan Horton MD Scribe Plan - Not visible on output: Patient was informed and verbally consented to the use of an ambient scribe for clinic note documentation during this visit. Coding Level of Care Code Est Pt Level 4 (64546) Diagnoses Frequency of micturition R35.0 Overactive bladder N32.81 Microscopic hematuria R31.29 Urinary incontinence R32 CPT Codes Cystoscopy - CPT: [id number] ([id number])
--- OUTSIDE RECORDS SUMMARY | 2025-04-16 13:35 | XMS_ITS | Encounter Summary ---
Author Organization [facility] Address [address] [place] [address] [address] [place] [address] Care Team Providers Care Gift Wrapper Name Role Phone Yecenia Hood MD Primary Care Provider [phone] Encounter Details Date Type Department Care Team ([facility] Contact Info) Description 06/20/2023 Orders Only [address] [address] ProviderVadim MD Social History Tobacco Use Types [...] Description 04/22/2025 11:00 AM EDT Clinical Support [address] [address] 06/08/2025 2:30 PM EDT Office Visit [address] [address] Yecenia Hood MD [address] [place] [id number] documented as of this encounter Procedures Procedure [...] documented as of this encounter Care Teams Gift Wrapper Relationship Specialty Start Date End Date Yecenia Hood MD [address] [place] [address] PCP - General Family Medicine 06/14/20 documented as of this encounter
== END 2025-04-16 14:40 | disposition home or self-care (01) ==
LOC: HO.HUSH 13:27
PROVIDERS: PCP General Practice; Visit Provider Urology
DX: R31.29 Other microscopic hematuria (principal); Z13.9 Encounter for screening, unspecified
CPT/HCPCS: 52000; 99214

== ENCOUNTER → 2025-04-16 13:26 | Outpatient (BNVA) | payer OTHER, SELFPAY | PROVIDERS: PCP General Practice; Visit Provider Urology | DX: R35.0 Frequency of micturition (principal); N32.81 Overactive bladder; R31.29 Other microscopic hematuria; R32 Unspecified urinary incontinence | CPT/HCPCS: 52000; 81003; 99212 ==

== ENCOUNTER 2025-07-20 10:11 | Outpatient (AMB) | payer OTHER, SELFPAY ==
--- NOTE | 2025-07-20 10:11 | MHC.OFFVIS ---
Intake Visit Reasons: 3m/med review Intake Note: Patient is present for a 3 mo Telehealth for medication review Urology Medication:Gemtesa Antibiotic Allergy:NONE Blood Thinner:APIXABAN Cold Meat Cook Required: Yes Cold Meat Cook Name: Maryanne [id number] Accompanied by: Self / Same As Patient Allergies No Known Allergies Allergy (Verified 07/20/25 10:12) Medication List - Last Reconciled 07/20/25 by Aidan Horton MD amlodipine 10 mg PO DAILY apixaban (Eliquis) 5 mg PO BID aripiprazole 5 mg PO QAM atenolol 25 mg PO BEDTIME atorvastatin 40 mg PO BEDTIME blood sugar diagnostic As directed clonazepam 1 mg PO BEDTIME lancets As directed lidocaine 5% 1 patch topical DAILY PRN loratadine (Allerclear) 10 mg PO DAILY PRN metformin 250 mg PO DAILY omeprazole 20 mg PO DAILY vibegron (Gemtesa) 75 mg PO DAILY HPI Comments Details: 07/20/25--fortino is a 75-year-old female Irish-speaking who was last seen in the office on 04/16/2025 Gemtesa was started for overactive bladder symptoms. History of Present Illness The patient is a 75-year-old female presenting with overactive bladder. The patient was last seen in the office on April 16, 2025, when gemtesa was initiated to address her bladder leakage symptoms. Since starting the medication, the patient reports improvement in her symptoms. Plan 1. Overactive Bladder - Continue gemtesa for symptom management. - Prescribe a 90-day supply with refills. - Schedule follow-up in one year to reassess symptoms and medication efficacy. 04/16/2025--persistent microscopic hematuria. Fortino is here for office cystoscopy. Cystoscopy findings: Bladder wall thickening, no suspicious bladder lesions visualized OAB symptoms: We will start Gemtesa 75 mg daily - The patient is a 74-year-old female presenting for a cystoscopy to evaluate bladder symptoms. - Bladder wall thickening was noted during the cystoscopic examination, which may contribute to bladder spasms. - Cystoscopy- today 04/16/25: No lesions observed in the bladder 03/05/25--Fortino is a 74-year-old female who has been followed due to lower urinary tract symptoms urgency, urinary frequency, and urinary incontinence. Comorbidity diabetes. History of ovarian cancer status post total hysterectomy. Patient states she is currently on chemotherapy due to recurrence of the cancer. She had a port placed for the chemotherapy. In regards to her urinary symptoms, The patient had a sacral InterStim lead placed July 2020 which was removed 08/13/2023 because she stated it no longer was working well. She has failed other therapy modalities. The patient was last seen 12/30/2024 urinalysis was done notable for microscopic hematuria. She was sent for a renal ultrasound as well as urine was sent for cytology. I have reviewed results with the patient renal ultrasound negative for renal masses. Urine cytology sent on 12/30/2024 was negative for malignant cells. Urinalysis today persistent microscopic hematuria, 1+ blood, 1+ protein. I have discussed further evaluation of her bladder with cystoscopy. We will hold on other testing for her bladder symptoms such as urodynamics due to her current chemotherapy treatments. The patient uses pads prn. [facility] Medical History Uterine cancer Ovarian cancer Acute hemorrhoid Osteoarthritis Back pain Arthritis Thyroid disease Diabetes GERD (gastroesophageal reflux disease) Peptic ulcer Anxiety Depression Elevated cholesterol HTN (hypertension) Surgical History History of surgery Previous back surgery H/O: hysterectomy H/O cystoscopy Hx of tonsillectomy H/O cataract extraction History of esophagogastroduodenoscopy (EGD) H/O colonoscopy H/O excision of mass Family History Mother Diabetes HTN (hypertension) Father HTN (hypertension) Sister Diabetes Lymphoma of lymph nodes Social History Household Members: None Housing: Apartment Do you presently have visiting nurse or other home services: Yes ([facility]) Alcohol intake: never Patient Tobacco Use Status: Never used Tobacco Advance Directives Date on File: 02/15/22 service: No Current occupational status: disabled Gender identity: Female Female Reproductive History Menstrual Age of Menarche: 10 Review of Systems Const All systems reviewed & are unremarkable except as noted in HPI and below Reports no additional complaints Eyes Reports no additional complaints ENT Reports no additional complaints Card Reports no additional complaints Resp Reports no additional complaints GI Reports no additional complaints Reports as per HPI Musc Reports no additional complaints Skin/Breast Reports system reviewed and no additional complaints, except as documented Neuro Reports no additional complaints Psych Reports no additional complaints Endo Reports no additional complaints Tre/Lymph Reports no additional complaints Aller/Immun Reports no additional complaints Telehealth Telehealth Telehealth Platform: Telephone Location of provider rendering services: practice address Location of patient: address on file Patient Identification confirmed using: Name, : Yes Telehealth method: voice only Patient verbally consented to treatment: Yes Patient verbally consented to billing insurance company: Yes Patient informed of any privacy concerns related to visit: Yes Minutes spent on Phone/Video with Pt.: 14 Assessment & Plan Assessment & Plan (1) Overactive bladder: Code(s): N32.81 - Overactive bladder Category: Medical Plan Plan 1. Overactive Bladder - Continue gemtesa for symptom management. - Prescribe a 90-day supply with refills. - Schedule follow-up in one year to reassess symptoms and medication efficacy. Medications: Refilled vibegron (Gemtesa) 75 mg PO DAILY 90 tabs 3RF N32.81 - Overactive bladder Patient Instructions: The patient had an opportunity to ask questions regarding treatment plan. The patient expressed understanding and agreement with the above treatment plan. The patient is aware they should contact our office by phone for worsening of their current condition or the appearance of new symptoms. Compliance is encouraged with any medications and followup testing that is ordered. It is a privilege to be allowed the opportunity to participate in the urologic care of your patient. If you have any questions or concerns regarding treatment for the above conditions please do not hesitate to contact me. The office telephone contact is [phone]. This note is constructed in part using voice recognition software. While every effort has been made to ensure accuracy sourcing analyst errors may have been included. Yours sincerely, Aidan Horton MD Scribe Plan - Not visible on output: Patient was informed and verbally consented to the use of an ambient scribe for clinic note documentation during this visit. Coding Level of Care Code Tele Est Pt Level 3 (71233) Diagnoses Overactive bladder N32.81
--- OUTSIDE RECORDS SUMMARY | 2025-07-20 11:48 | XMS_ITS | Encounter Summary ---
Author Organization [employer] Address [address] [facility] 7t [place] [address] Care Team Providers Care Loom Winder Tender Name Role Phone Yecenia Hood MD Primary Care Provider [phone] Encounter Details Date Type Department Care Team (Late st Contact Info) Description 11/21/2022 Orders Only [facility] MED & PEDS [address] [place] [address] Nava Khan LPN Social History Tobacco Use [...] on filedocumented in this encounter Care Teams Loom Winder Tender Relationship Specialty Start Date End Date Yecenia Hood MD [address] [place] [address] PCP - General Family Medicine 06/14/20 documented as of this encounter
--- OUTSIDE RECORDS SUMMARY | 2025-07-20 11:48 | XMS_ITS | Encounter Summary ---
Author Organization [employer] Address [address] [facility] [address] [place] [address] Care Team Providers Care Screed Operator Name Role Phone Yecenia Hood MD Primary Care Provider [phone] Reason for Visit * Reason Comments Med Refill Encounter Details Date Type Department Care Team ([facility] st Contact Info) Description 02/25/2025 Refill [facility] MEDICINE [address] [place] [address] Yecenia Hood MD [address] [place] [address] Social History Tobacco Use Types Packs/Day Years [...] documented as of this encounter Care Teams Screed Operator Relationship Specialty Start Date End Date Yecenia Hood MD [address] [place] [address] PCP - General Family Medicine 06/14/20 documented as of this encounter
--- OUTSIDE RECORDS SUMMARY | 2025-07-20 11:48 | XMS_ITS | Encounter Summary ---
Author Organization [employer] Address [address] [facility] [address] [place] [address] Care Team Providers Care Biometry Teacher Name Role Phone Yecenia Hood MD Primary Care Provider [phone] Encounter Details Date Type Department Care Team (Late st Contact Info) Description 01/01/2023 Orders Only [facility] CH[facility] MED & PEDS [address] [place] [address] Nava Khan LPN Social History Tobacco Use [...] documented as of this encounter Care Teams Biometry Teacher Relationship Specialty Start Date End Date Yecenia Hood MD [address] [place] [address] PCP - General Family Medicine 06/14/20 documented as of this encounter
--- OUTSIDE RECORDS SUMMARY | 2025-07-20 11:48 | XMS_ITS | Encounter Summary ---
Author Organization [employer] Address [address] [facility] [address] [place] [address] Care Team Providers Care Justice Court Deputy Clerk Name Role Phone Yecenia Hood MD Primary Care Provider [phone] Encounter Details Date Type Department Care Team (Late st Contact Info) Description 10/23/2022 Orders Only [facility] CHC MED & PEDS [address] [place] [address] Nava Khan LPN Social History Tobacco Use [...] on filedocumented in this encounter Care Teams Justice Court Deputy Clerk Relationship Specialty Start Date End Date Yecenia Hood MD [address] [place] [address] PCP - General Family Medicine 06/14/20 documented as of this encounter
--- OUTSIDE RECORDS SUMMARY | 2025-07-20 11:48 | XMS_ITS | Encounter Summary ---
Author Organization [employer] Address [address] [facility] [address] [place] [address] Care Team Providers Care Gaming Worker Name Role Phone Yecenia Hood MD Primary Care Provider [phone] Encounter Details Date Type Department Care Team (Late st Contact Info) Description 04/22/2025 Orders Only [facility] MEDICINE [address] [place] [address] Yecenia Hood MD [address] [place] [address] Social History Tobacco Use Types Packs/Day Years [...] documented as of this encounter Care Teams Gaming Worker Relationship Specialty Start Date End Date Yecenia Hood MD [address] [place] [address] PCP - General Family Medicine 06/14/20 documented as of this encounter
--- OUTSIDE RECORDS SUMMARY | 2025-07-20 11:48 | XMS_ITS | Encounter Summary ---
Author Organization [employer] Address [address] [facility] [address] [place] [address] Care Team Providers Care Quality Internship Name Role Phone Yecenia Hood MD Primary Care Provider [phone] Reason for Visit * Reason Comments Med Refill Encounter Details Date Type Department Care Team ([facility] st Contact Info) Description 05/08/2023 Refill [facility] MED & PEDS [address] [place] [address] Faizan Ty FNP Social History Tobacco Use [...] documented as of this encounter Care Teams Quality Internship Relationship Specialty Start Date End Date Yecenia Hood MD [address] [place] [address] PCP - General Family Medicine 06/14/20 documented as of this encounter
--- OUTSIDE RECORDS SUMMARY | 2025-07-20 11:48 | XMS_ITS | Encounter Summary ---
Author Organization [employer] Address [address] [facility] 7t [place] [address] Care Team Providers Care Personal Financial Representative Name Role Phone Yecenia Hood MD Primary Care Provider [phone] Encounter Details Date Type Department Care Team (Late st Contact Info) Description 08/26/2024 Orders Only [facility] MEDICINE [address] [place] [address] Yecenia Hood MD [address] [place] [address] Social History Tobacco Use Types Packs/Day Years [...] PM EST Narrative 09/29/2024 4:35 PM EST [facility] [address] [place] [address] Mammography Report Signed Patient: Yandy Nunez MR#: [id number] : 1950 Acct:[id number] Age/Sex: 74 / F ADM Date: 09/23/24 Loc: HO.MAMMO Attending Dr: Yecenia Hood MD Ordering Physician: Yecenia Hood Results: 1Negative Date of Service: 09/23/24 Follow Up: 1 Year From Orig inal Mammogram Procedure(s): MM tomosynthesis screening BI Accession Number(s): [id number] cc: Yecenia Hood EXAMINATION: MM SCREENING DIGITAL [...] 09/29/24 1632 DD/ 1410 TD/TT: 09/23/24 1420 Patternmaker Grader: Procedure Note Donotuseinterpreter, Image - 09/29/2024 [facility] [address] [place] [address] Mammography Report Signed Patient: Ishaan Nunez#: [id number] : 1950cct:[id number] Age/Sex: 74 / FADM Date: 09/23/24 Loc: HO.MAMMO Attending Dr: Yecenia Hood MD Ordering Physician: Sherry Hoodults: 1Negative Date of Service: 09/23/24Follow Up: 1 Year From Orig ina Mammogram Procedure(s): MM tomosynthesis screening BI Accession Number(s): [id number] cc: Yecenia Hood EXAMINATION: MM SCREENING DIGITAL [...] 09/29/24 1632 DD/ 1410 TD/TT: 09/23/24 1420 Patternmaker Grader: us Yecenia Hood MD IMG BI PROCEDURES Edited Resul t - Final documented in this encounter Visit Diagnoses Not on filedocumented in this encounter Additional Health Concerns Assessment Noted Time PHQ-9 Depression Total Score: 2 02/18/20 24 9:32 AM EDT documented as of this encounter Care Teams Personal Financial Representative Relationship Specialty Start Date End Date Yecenia Hood MD [address] [place] [phone] PCP - General Family Medicine 06/14/20 documented as of this encounter
--- OUTSIDE RECORDS SUMMARY | 2025-07-20 11:48 | XMS_ITS | Encounter Summary ---
Author Organization [employer] Address [address] [facility] [address] [place] [address] Care Team Providers Care Electrical Maintenance Man Name Role Phone Yecenia Hood MD Primary Care Provider [phone] Encounter Details Date Type Department Care Team (Late st Contact Info) Description 06/20/2023 Orders Only [facility] MEDICINE [address] [place] [address] Provider, MD Vadim Social History Tobacco Use [...] documented as of this encounter Care Teams Electrical Maintenance Man Relationship Specialty Start Date End Date Yecenia Hood MD [address] [place] [address] PCP - General Family Medicine 06/14/20 documented as of this encounter
--- OUTSIDE RECORDS SUMMARY | 2025-07-20 11:48 | XMS_ITS | Encounter Summary ---
Author Organization [employer] Address [address] [facility] 7t [place] [address] Care Team Providers Care Rotary Soil Stabilizer Operator Name Role Phone Yecenia Hood MD Primary Care Provider [phone] Encounter Details Date Type Department Care Team (Late st Contact Info) Description 10/05/2022 Orders Only [facility] [address] [place] [address] Emma Cazares LPN Social History Tobacco Use [...] on filedocumented in this encounter Care Teams Rotary Soil Stabilizer Operator Relationship Specialty Start Date End Date Yecenia Hood MD [address] [place] [address] PCP - General Family Medicine 06/14/20 documented as of this encounter
--- OUTSIDE RECORDS SUMMARY | 2025-07-20 11:48 | XMS_ITS | Encounter Summary ---
Author Organization [employer] Address [address] [facility] 7t [place] [address] Care Team Providers Care Wildlife Ecologist Name Role Phone Yecenia Hood MD Primary Care Provider [phone] Encounter Details Date Type Department Care Team (Latest Contact Info) Description 04/13/2022 Abstract [facility] CON[facility]S Dental, Provider, DDS Social History [...] on filedocumented in this encounter Care Teams Wildlife Ecologist Relationship Specialty Start Date End Date Yecenia Hood MD [address] [place] [address] PCP - General Family Medicine 06/14/20 documented as of this encounter
--- OUTSIDE RECORDS SUMMARY | 2025-07-20 11:49 | XMS_ITS | Clinical Summary ---
Author Organization [employer] Address [address] [facility] 7t [place] [address] Care Team Providers Care Welcome Hostess Name Role Phone Yecenia Hood MD Primary Care Provider [phone] Allergies Active Allergy Reactions Criticality Noted Date Comments Latex 01/15/2023 Other reaction(s): Hives Shellfish Allergy Rash Low 01/15/2023 Medications * This document contains information received from the source organization and may not represent a complete record from that organization. Mapap 500 MG capsule TAKE 2 CAPSULES BY MOUTH EVERY 8 HOURS NEEDED 022 Active SM Dry Eye Relief 0.2-0.2-1 % solution APPLY 1-2 DROPS IN EACH EYE EVERY 6 HOURS NEEDED 022 Active lidocaine (Xylocaine) 2 % solution TAKE 15 ML BY MOUTH EVERY 3 HOURS, SWISH AND SPIT OUT DIRECTED 022 Active Lynparza 150 MG chemo tablet 023 Active polyvinyl alcohol (Liquifilm Tears) 1.4 % ophthalmic solution USE 1-2 DROPS IN THE AFFECTED EYE (S) EVERY 6 HOURS NEEDED 023 Active loratadine (Claritin) 10 MG tablet TAKE 1 TABLET BY MOUTH DAILY NEEDED FOR ITCHING 023 Active Blood Glucose Monitoring Suppl (FreeStyle Lite) w/Device kit 1 kit 2 times daily. 1 kit 023 Active SM ClearLax 17 GM/SCOOP powder PONER 17 GM EN 8 ONZAS DE AGUA O JUGO 1 VEZ AL WILBER 023 Active Readi-Cat 2 2 % suspension TAKE DIRECTED 024 Active valACYclovir (Valtrex) 1 g tablet TAKE 1 TABLET BY MOUTH EVERY DAY FOR 5 DAYS 024 Active Alcohol Swabs (Alcohol Prep) 70 % padsIndications :Type 2 diabetes mellitus with other specified complication, unspecified whether detention insulin use ([facility]) USE TWICE DAILY DIRECTED 100 each 11 024 Active TRUEplus Lancets 33G miscIndications :Type 2 diabetes mellitus with other specified complication, unspecified whether terminal block assembler insulin use ([facility]) USE DIRECTED EVERY DAY 100 each 11 024 Active Multiple Vitamins-Minera ls (CertaVite/Anti oxidants) tablet TAKE 1 TABLET BY MOUTH EVERY MORNING WITH FOOD 90 tablet 3 024 Active Calcium Carb-Cholecalci ferol 500-10 MG-MCG chewable tablet TAKE 1 TABLET BY MOUTH EVERY MORNING (CHEW) 90 tablet 3 024 Active atorvastatin (Lipitor) 40 MG tablet TAKE 1 TABLET BY MOUTH EVERY EVENING 90 tablet 3 024 Active acetaminophen (Tylenol 8 Hour) 650 MG ER tablet TAKE 1 TABLET BY MOUTH EVERY 8 HOURS NEEDED FOR PAIN 90 tablet 025 Active metFORMIN (Glucophage) 500 MG tablet TAKE 1/2 TABLET BY MOUTH EVERY MORNING 45 tablet 3 025 Active omeprazole (PriLOSEC) [address] capsuleIndicati ons:Gastroesoph ageal reflux disease without esophagitis TAKE 1 CAPSULE BY MOUTH EVERY MORNING BEFORE BREAKFAST 90 capsule 3 025 Active B Complex Vitamins (Vitamin B Complex) capsule TAKE 1 CAPSULE BY MOUTH EVERY MORNING 30 each 025 Active FREESTYLE LITE test stripIndication s:Type 2 diabetes mellitus with hyperglycemia, without long-term current use of insulin ([facility]) TEST BLOOD SUGAR TWICE DAILY 100 strip 11 025 Active levothyroxine (Synthroid, Levoxyl) 50 MCG tablet TAKE 1 TABLET BY MOUTH EVERYDAY AT NOON 90 tablet 1 025 Active atenolol (Tenormin) 25 MG tablet TAKE 1 TABLET BY MOUTH EVERY EVENING 90 tablet 3 025 Active hydrocortisone 2.5 % cream Mix 60g tube of Hydrocortisone 2.5% with 16oz jar of CeraVe cream. Apply by topical route 1-2 times per day after shower or bath onto legs 60 g 3 025 Active Emollient (CeraVe Daily Moisturizing) lotion Apply 1 Application topically 2 times daily. 355 mL 3 Active Eliquis 5 MG tablet TAKE 1 TABLET BY MOUTH TWICE DAILY IN THE MORNING AND IN THE EVENING 60 tablet 2 Active senna (Senokot) 8.6 MG tabletIndicatio ns:Constipation , unspecified constipation type TAKE 2 TABLETS BY MOUTH EVERY DAY AT BEDTIME NEEDED FOR CONSTIPATION Active Gemtesa 75 MG tablet Active ARIPiprazole (Abilify) 10 MG tabletIndicatio ns:Depressive disorder,Bipola r depression (CMS/HCC) (HCC) Take 1 tablet (10 mg) by mouth Once per day. 30 tablet 11 Active gabapentin (Neurontin) 100 MG capsuleIndicati ons:Type 2 diabetes mellitus with other specified complication, without long-term current use of insulin (HCC) Take 1 capsule (100 mg) by mouth Once per day. 90 capsule 3 025 2025 Active clonazePAM (KlonoPIN) 0.5 MG tablet Take 1 tablet (0.5 mg) by mouth if needed each day for anxiety (before chemo session) for up to 10 days. 10 tablet Active furosemide (Lasix) 20 MG tabletIndicatio ns:Edema, unspecified type TAKE 1/2 TABLET BY MOUTH EVERY MORNING 15 tablet 1 Active enalapril (Vasotec) 10 MG tablet TAKE 1 TABLET BY MOUTH EVERY MORNING 90 tablet 3 Active NIFEdipine XL (Procardia XL) 90 MG 24 hr tablet TAKE 1 TABLET BY MOUTH EVERY MORNING DO NOT BREAK, CRUSH, DISSOLVE OR CHEW 90 tablet 3 Active enalapril (Vasotec) 20 MG tablet Take 1 tablet (20 mg) by mouth Once per day. 90 tablet 3 025 2025 Active NIFEdipine XL (Procardia XL) 90 MG 24 hr tablet Take 1 tablet (90 mg) by mouth Once per day. Do not crush, chew, or split. 90 tablet 3 024 2024 Discontinued(R eorder (will not trigger notification to Pharmacy)) enalapril (Vasotec) 20 MG tablet Take 1 tablet (20 mg) by mouth Once per day. 90 tablet 3 024 2024 Discontinued(R eorder (will not trigger notification to Pharmacy)) enalapril (Vasotec) 10 MG tablet Take 1 tablet (10 mg) by mouth Once per day. 90 tablet 025 2024 Discontinued furosemide (Lasix) 20 MG tabletIndicatio ns:Edema, unspecified type Take 0.5 tablets (10 mg) by mouth Once per day. 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 06/08/2025 Alopecia 06/05/2025 Bilateral leg edema 06/05/2025 Burn injury 06/05/2025 Adverse effect of carboplatin 06/05/2025 Chemotherapy adverse reaction 06/05/2025 Chemotherapy-induced fatigue 06/05/2025 DVT (deep venous thrombosis) 06/05/2025 Elevated CA-125 06/05/2025 History of primary cancer of peritoneum in adult [place] 06/05/2025 Uses Lithuanian as primary spoken language 06/05/20 Localized swelling of right lower extremity 10/2024 Assessment & Plan (05/08/2025 12:04 PM EDT): Difficulty to ascertain history of compliance though pt has med box, on eliquis, will order us stat Ill-fitting dentures 08/20/2024 Dental caries into pulp [...] PCP or oncologist next month. 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 Assessment & Plan (05/28/2023 8:20 AM EDT): Continue followup with [facility] oncology No re-occurrence per patient Continue Lymparza Assessment & Plan (01/17/2023 11:08 AM EDT): Continue followup with [facility] oncology No re-occurrence per patient Constipation 01/15/2023 Gastroesophageal reflux disease 01/15/2023 Hemorrhoids 01/15/2023 Maintenance chemotherapy 01/15/2023 Peptic ulcer 01/15/2023 Skin lesion of back 01/15/2023 Left hip pain 01/15/2023 Assessment & Plan (01/17/2023 11:09 AM EDT): xrays ordered to rule out impingement 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 F/U with me in 3 months. She agrees with the plan Assessment & Plan (02/13/2023 11:44 AM EDT): Still doing OK. Continue Abilify 5 mg daily, Clonazepam 0.5 mg BID prn. Not interested in therapy at this time. 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 F/U with me in [...] TSH at goal between 1 and 2 Hypertension 10/15/1959 Assessment & Plan (05/08/2025 11:55 AM EDT): Chemo was held due to elevated bp, improved in office today, will add enalopril 10 mg to current dose of 30 mg. Monitor bp at home , monitor for hypotension Assessment & Plan (10/28/2024 3:04 PM EST): [...] Increase Amlodipine to 10mg daily Osteoarthritis 10/15/1959 Moderate recurrent major depression (CMS/HCC) Resolved Problems Problem Noted Date Diagnosed Date Resolved Date Skin ulcer of buttock (CMS/HCC) 06/13/2024 10/28/2024 Encounters * This document contains information received from the source organization and may not represent a complete record from that organization. Date Type Department Care Team Description 07/07/2025 Refill [facility] MED[facility] [address] [place] [address] Yecenia Hood MD 07/06/2025 Refill [facility] [address] [place], [place] [phone] Yecenia Hood MD 07/06/2025 Refill [facility] [address] [place] [address] Nancy Riggins NP 06/27/2025 Refill [facility] [address] [place], [place] [phone] Yecenia Hood MD Edema, unspecified type 06/08/2025 2:30 PM EDT Office Visit [facility] [address] [place] [phone] eYcenia Hood MD Adverse effect of chemotherapy, subsequent encounter (Primary Dx); Type 2 diabetes mellitus with other specified complication, without long-term current use of insulin ([facility]); Hyperlipidemia, unspecified hyperlipidemia type; Primary hypertension; Other specified hypothyroidism; Carcinoma of peritoneum ([facility]); Bilateral leg edema; Constipation, unspecified constipation type; Depressive disorder; Bipolar depression ([facility]) 06/08/2025 Travel 06/05/2025 Telephone [facility] [address] [place] [phone] Yecenia Hood MD chart prep 06/01/2025 Patient Outreach [facility] [address] [place], [place] [phone] Yecenia Hood MD Pre-visit Planning ([facility] unable to reach [facility] ) 05/31/2025 Refill [facility] [address] [place] [phone] Yecenia Hood MD 04/22/2025 11:00 AM EDT Clinical Support [facility] [address] [place] [phone] Nyla Mays, CHRIS Primary hypertension 04/22/2025 Orders Only [facility] [address] [place] [phone] Yecenia Hood MD 04/22/2025 Refill [facility] [address] [place] [phone] Nyla Mays, CHRIS Edema, unspecified type; Rash 04/22/2025 Travel 04/21/2025 Refill [facility] [address] [place] [phone] Yecenia Hood MD 04/20/2025 Results Follow-Up [facility] [address] [place] [phone] Nancy Riggins NP US VENOUS DUPLEX LE RT from Last 3 Months Immunizations Immunization Administration Dates Next Due Influenza injectable quadriv [...] Answer Date Recorded Patient Health Questionnaire-9 Score 13 06/08/2025 Patient Health Questionnaire-9 Score 13 06/08/2025 Last PHQ-9: Questionnaire Data Not on file 0 06/08/2025 Housing Stability Answer Date Recorded What is [...] Date Recorded Patient Health Questionnaire-2 Score 3 06/08/2025 Comments Unknown Sex and Gender Information Value Date Recorded Sex Assigned at Female 08/14/2022 10:15 AM EDT Legal Sex Female 10:15 AM EDT Gender Identity Female 08/14/2022 10:15 AM EDT Sexual Orientation Straight 08/14/2022 10 :15 AM EDT Last Filed Vital Signs Vital Sign Reading Time Taken Comments Blood Pressure 130/70 06/08/2025 2:49 PM EDT Pulse 80 06/08/2025 2:49 PM EDT Temperature 36 C (96.8 F) 04/14/2025 3:16 PM EDT Respiratory Rate 21 06/08/2025 2:49 PM EDT Oxygen Saturation 98% 04/14/2025 3:16 PM EDT Inhaled Oxygen Concentration - - Weight 66.7 kg (147 lb) 06/08/2025 2:49 PM EDT Height 154.9 cm (5' 1 ) 06/08/2025 2:49 PM EDT Body Mass Index 27.78 06/08/2025 2:49 PM EDT Plan of Treatment Health Maintenance Due Date Last Done Comments CT Colonography 1950 FIT DNA/Cologuard 1950 FIT 1950 FOBT 1950 Sigmoidoscopy 1950 Diabetes: Foot Exam 1961 Alcohol/Substance Use Screening 1963 Dental Oral Exam 10/14/2022 04/13/2022, 06/2019, 07/22/2018, Additional history exists Dental Prophylaxis 10/14/2022 04/13/2022, 0 01/21/2019, 07/22/2018, Additional history exists Dental X-Ray: Bitewings 04/14/2023 04/13/20, 07/22/2018, 07/19/2017, Additional history exists SDOH Screening 12/06/2024 12/06/2023 Diabetes: Urine Protein Screening 01/20/2025 01/21/2024, 01/15/2023 Lipid Panel 01/20/2025 01/21/2024, 0811/2021, 11/05/2020 Dental X-Ray: Full Mouth 04/14/2025 04/13/2022 COVID-19 Vaccine ( season) 2025 01/20/2021, 12/23/2020 Influenza Vaccine (#1) 2025 8, 08/30/2016, 06/28/2015, Additional history exists Mammogram 09/23/2025 09/23/2024, 12/0 03/2023, 09/13/2022, Additional history exists Depression Monitoring 12/09/2025 06/08/2025, 025 Diabetes: Hemoglobin A1C 12/09/2025 025, 10/24/2024, 01/21/2024, Additional history exists RSV Patients and Patients Aged 60 years or older (1 - 1-dose 75+ series) 2026 Tobacco Screening 06/08/2026 06/08/2025 Colonoscopy 07/24/2026 07/24/2021 Colorectal Cancer Screening 07/24/2026 [...] patient's age to complete this topic Meningococcal B Vaccine Aged Out No l onger eligible based on patient's age to complete [...] Name Priority Date/Time Associated Diagnosis Comments POCT GLYCATED HEMOGLOBIN, TOTAL Routine 06/08/2025 3:08 PM EDT Type 2 diabetes mellitus with other specified complication, without long-term current use of insulin ([facility]) POCT GLUCOSE Routine 06/08/2025 2:51 PM EDT Type 2 diabetes mellitus with other specified complication, without long-term current use of insulin (CMS/[facility]) BI MAMMOGRAM SCREENING TOMOSYNTHESIS BILATERAL Routine [...] to Health Maintenance Results * (ABNORMAL) POCT HGB A1C (06/08/2025 3:08 PM EDT) Hemoglobin A1C 5.8(A) 4.0 - 5.7 % QC Media Lot # [id number] Lot# Expiration Date 42 Blood 06/08/2025 3:08 PM EDT us Yecenia Hood MD POINT OF CARE TEST ENTER/EDIT ORDERABLES Final Result * POCT Glucose (06/08/2025 2:51 PM EDT) Glucose Blood, POC 120 60 - 200 mg/dL QC Media Lot # [id number] Lot# Expiration Date 726 Blood Capillary blood specimen / Unknown 06/08/2025 2:51 PM EDT us Yecenia Hood MD POINT OF CARE TEST ENTER/EDIT ORDERABLES Final Result * BI Mammogram Screening Tomosynthesis Bilateral (09/23/2024 2:10 PM EST) Anatomical Region Laterality Modality Breast Bilateral Mammography 09/23/2024 2:10 PM EST Narrative 09/29/2024 4:35 PM EST [facility] [address] [place] [address] Mammography Report Signed Patient: Yandy Nunez MR#: [id number] : 1950 Acct:[id number] Age/Sex: 74 / F ADM Date: 09/23/24 Loc: HO.MAMMO Attending Dr: Yecenia Hood MD Ordering Physician: Yecenia Hood Results: 1Negative Date of Service: 09/23/24 Follow Up: 1 Year From Orig inal Mammogram Procedure(s): MM tomosynthesis screening BI Accession Number(s): [id number] cc: Yecenia Hood EXAMINATION: MM SCREENING DIGITAL [...] 09/29/24 1632 DD/ 1410 TD/TT: 09/23/24 1420 Field Assessor: Procedure Note Donotuseinterpreter, Image - 09/29/2024 [facility] [address] [place], [place] [address] Mammography Report Signed Patient: Ishaan Nunez#: [id number] : 1Acct:[id number] Age/Sex: 74 / FADM Date: 09/23/24 Loc: HO.MAMMO Attending Dr: Yecenia Hood MD Ordering Physician: Sherry Hoodults: 1Negative Date of Service: 09/23/24Follow Up: 1 Year From Orig inal Mammogram Procedure(s): MM tomosynthesis screening BI Accession Number(s): [id number] cc: Yecenia Hood EXAMINATION: MM SCREENING DIGITAL [...] by: Rachael Rowland DO 09/29/2024 04:32 PM [facility] Dictated By: Rachael Rowland DO Signed By: <Electronically signed by Rachael Rowland DO in OV> 09/29/24 1632 DD/ 1410 TD/TT: 09/23/24 1420 Field Assessor: Yecenia Hood MD IMG BI PROCEDURES Edited Resul t - Final * Albumin, Random Urine W/Creatinine (01/21/2024 10:26 AM EDT) Creatinine, Urine 133.86 mg/dL [facility] Microalbumin Urine 18.0 mg/L [facility] Microalbum Creatinine Ratio Ur 13.4 <30 ug/mg cr [facility] Comment:Albumin/Creatinine R atio Reference Ranges: Normal: < 30 ug/mg creatinine Microalbuminuria: 30 - 300 ug/mg creatinineClinical Albuminuria: > 300 ug/mg creatinine Urine (Urine, Random) 01/21/2024 10:26 AM EDT 01/21/2024 11:25 AM EDT Yecenia Hood MD LAB URINE ORDERABLES Final Res ult Performing Organization Address [facility] Co de Phone Number [facility] [address] [place] [phone] * Hepatitis C Antibody with Reflex to HCV, RNA, Quantitative, Real-Time PCR (01/21/2024 10:26 AM EDT) Hepatitis C Antibody Nonreactive Nonreactive [facility] Comment:Antibodies to HCV no t detected; does not exclude early acuteHCV infection. Blood Venous blood specimen / Unknown 01/21/2024 10:26 AM EDT 01/21/2024 11:44 AM EDT Yecenia Hood MD LAB BLOOD ORDERABLES Final Res ult Performing Organization Address City/[facility]/ZIP Co de Phone Number [facility] [address] [place] [phone] * Lipid Panel, Standard (01/21/2024 10:26 AM EDT) Triglycerides 75 <150 mg/dL [facility] Comment:Desirable Triglyceri de: less than 150 mg/dLBorderline High Triglyceride 150-199 mg/dLHigh Triglyceride: 200-499 mg/dLVery High Triglyceride: greater than or equal to 5OO mg/dL Cholesterol 167 <200 mg/dL [facility] Comment:Desirable Cholestero l: less than 200 mg/dLBorderline High Cholesterol: 200-239 mg/dLHigh Cholesterol: greater than 239 mg/dL LDL Cholesterol Calculated 93 <100 mg/dL [facility] Comment:Desirable LDL: less than 100 mg/dLNear Optimal/Above Optimal LDL: 110- 129 mg/dLBorderline High LDL: 130-159 mg/dLHigh LDL: 160-189 mg/dLVery High LDL: greater than or equal to 190 mg/dL HDL Cholesterol 59 >40 mg/dL [facility] Comment:Desirable HDL: great er than 40 mg/dL Note: This HDL assay may give artificially low results in patients with liver disease. Blood Venous blood specimen / Unknown 01/21/2024 10:26 AM EDT 01/21/2024 11:44 AM EDT Yecenia Hood MD LAB BLOOD ORDERABLES Final Res ult [facility] [address] [place] [phone] * Hm Colonoscopy (07/24/2021) Historical Provider HEALTH MAINTENANCE Final Result from Last 3 Months or Most Recently Relevant to Health Maintenance Insurance [facility] INTERMEDIATE OPTIONS (HMO D-SNP) EMMA [place]DRY [id number] [facility] - [facility] Care Teams Welcome Hostess Relationship Specialty Start Date End Date Yecenia Hood MD [address] [place] [address] PCP - General Family Medicine 06/14/20
== END 2025-07-20 11:18 | disposition home or self-care (01) ==
LOC: HO.HUSH 10:11
PROVIDERS: PCP General Practice; Visit Provider Urology
DX: N32.81 Overactive bladder (principal)
CPT/HCPCS: 99213

== ENCOUNTER 2025-09-03 08:47 | Outpatient (AMB) | payer OTHER, SELFPAY ==
--- NOTE | 2025-09-03 09:08 | A.OFFVIS_ITS ---
Intake Visit Reasons: INJ: B/L knee OA, last inj 11/18/24 Intake Note: Yandy is a 75 year old female who presents today for repeat injections for both of her knees, last injections 07/03/24. Patient reports her last injections gave her relief and would like to repeat. Allergies No Known Allergies Allergy (Verified 09/03/25 09:08) HPI HPI INJ: B/L knee OA, last inj 11/18/24: Details: Ms. Nunez is a 75-year-old female who presents to the office today for chronic bilateral knee pain due to osteoarthritis. Last cortisone injection was 11/18/2024 and gave her roughly 3 months of relief. She is looking to repeat injections while in the office today. [facility] Medical History Uterine cancer Ovarian cancer Acute hemorrhoid Osteoarthritis Back pain Arthritis Thyroid disease Diabetes GERD (gastroesophageal reflux disease) Peptic ulcer Anxiety Depression Elevated cholesterol HTN (hypertension) Surgical History History of surgery Previous back surgery H/O: hysterectomy H/O cystoscopy Hx of tonsillectomy H/O cataract extraction History of esophagogastroduodenoscopy (EGD) H/O colonoscopy H/O excision of mass Family History Mother Diabetes HTN (hypertension) Father HTN (hypertension) Sister Diabetes Lymphoma of lymph nodes Social History Household Members: None Housing: Apartment Do you presently have visiting nurse or other [facility] services: [facility] Alcohol intake: never Patient Tobacco Use Status: Never used Tobacco Advance Directives Date on File: 02/15/22 service: No Current occupational status: disabled Gender identity: Female Female Reproductive History Menstrual Age of Menarche: 10 Review of Systems Const All systems reviewed & are unremarkable except as noted in HPI and below Physical Exam Const General: cooperative, healthy appearing and no acute distress Resp Effort & Inspection: normal respiratory effort and able to speak in complete sentences Cardio Rate: regular rate Peripheral pulses: Peripheral pulses 2+ throughout Extrem Other: Left knee: No erythema, ecchymosis, or warmth. No drainage. No tenderness to palpation of the medial or lateral joint lines. Crepitus felt with ROM. Full ROM. Negative Aidan's. NVI. Right knee:No ecchymosis, redness, or joint effusion. Full ROM. No tenderness to palpation of the medial or lateral joint lines. Negative Aidan's. NVI. Psych Appearance: grossly normal Mental Status: mental status grossly normal Attitude: cooperative Office Procedures AMB Joint Injection/Aspiration Joint Injection/Aspiration Primary Site: Right Knee Secondary Site: Left Knee Prep: site was prepped using aseptic technique, ethochloride spray was applied and injection warnings given Injected: 40 mg of, with 3 mL of, 1% plain Lidocaine, 0.25% Bupivacaine and in the joint Approach Used: anterolateral Procedure: The patient tolerated the procedure well, but had some pain with the injection and there was some relief with the local anesthesia Coding 47597 - Bilateral Large Joint Procedure code (CPT) selection complete Assessment & Plan Assessment & Plan (1) Bilateral primary osteoarthritis of knee: Code(s): M17.0 - Bilateral primary osteoarthritis of knee Category: Medical Plan The patient was offered a cortisone injection in bilateral knees. The patient was explained the risks, benefits, and alternatives to receiving this injection. After receiving consent for the injection, the patient had the procedure done while in the office today. The patient tolerated the procedure well with no complications. The risks, benefits, and alternatives to a corticosteroid injection were discussed with the patient, including the potential benefits of decreased inflammation and pain, improved function, and diagnostic value. Risks were reviewed, including post-injection flare, skin or fat atrophy, transient facial flushing, temporary elevation in blood glucose, bruising, and rare but serious complications such as infection, tendon weakening or rupture, and cartilage damage with repeated injections. Procedure-related discomfort and possible vasovagal symptoms were also explained. Alternatives were reviewed, including NSAIDs, physical therapy, activity modification, bracing, ice/heat, weight management, hyaluronic acid injections when appropriate, surgery depending on pathology, and observation. The patient verbalized understanding and elected to proceed. After receiving consent for the injection, the patient had the procedure done while in the office today. The patient tolerated the procedure well with no complications. Follow-up will be PRN, or sooner if needed Coding Level of Care Code Est Pt Level 3 (41393) Diagnoses Bilateral primary osteoarthritis of knee M17.0 CPT Codes Coding - - Bilateral Large Joint: - Bilateral Large Joint ([id number])
--- OUTSIDE RECORDS SUMMARY | 2025-09-03 10:18 | XMS_ITS | Encounter Summary ---
Author Organization [employer] Address [address] [facility] 7t [place] [address] Care Team Providers Care Pinmaker Name Role Phone Yecenia Hood MD Primary Care Provider [phone] Reason for Visit * Reason Comments Med Refill Encounter Details Date Type Department Care Team ([facility] st Contact Info) Description 02/25/2025 Refill [facility] MEDICINE [address] [place] [address] Yecenia Hood MD [address] [place] [address] Social History Tobacco Use Types Packs/Day Years [...] Encounters Date Type Department Care Team (Late st Contact Info) Description 09/07/2025 1:00 PM EST Medication Management [address] [address] Rajendra Lemus, PharmD [address] [place] [address] 11/17/2025 10:15 AM EST Office Visit [address] [address] Yecenia Hood MD [address] [place] [address] [phone] documented as of this encounter Visit Diagnoses Not on filedocumented in this encounter Additional Health Concerns Assessment Noted Time PHQ-9 Depression Total Score: 2 02/18/20 24 9:32 AM EDT documented as of this encounter Care Teams Pinmaker Relationship Specialty Start Date End Date Yecenia Hood MD [address] [place] [address] PCP - General Family Medicine 06/14/20 documented as of this encounter
--- OUTSIDE RECORDS SUMMARY | 2025-09-03 10:19 | XMS_ITS | Encounter Summary ---
Author Organization [employer] Address [address] [facility] 7t [place] [address] Care Team Providers Care Technology Training Associate Name Role Phone Yecenia Hood MD Primary Care Provider [phone] Encounter Details Date Type Department Care Team (Late st Contact Info) Description 08/26/2024 Orders Only [facility] MEDICINE [address] [place] [address] Yecenia Hood MD [address] [place] [address] Social History Tobacco Use Types Packs/Day Years [...] Description 09/07/2025 1:00 PM EST Medication Management [facility] MEDICINE [address] [place] [address] [phone] Rajendra Lemus, PharmD [address] [place] [address] 11/17/2025 10:15 AM EST Office Visit [facility] MEDICINE [address] [place] [address] [phone] Yecenia Hood MD [address] [place] [address] documented as of this encounter Procedures Procedure Name Priority Date/Time Associated Diagnosis Comments BI MAMMOGRAM SCREENING TOMOSYNTHESIS BILATERAL Routine 09/23/2024 2:10 PM EST documented in this encounter Results * BI Mammogram Screening Tomosynthesis Bilateral (09/23/2024 2:10 PM EST) Anatomical Region Laterality Modality Breast Bilateral Mammography 09/23/2024 2:10 PM EST Narrative 09/29/2024 4:35 PM EST [facility] [address] [place] [address] Mammography Report Signed Patient: Yandy Nunez MR#: [id number] : 1950 Acct:[id number] Age/Sex: 74 / F ADM Date: 09/23/24 Loc: [facility] Attending Dr: Yecenia Hood MD Ordering Physician: Yecenia Hood Results: 1Negative Date of Service: 09/23/24 Follow Up: 1 Year From Orig inal Mammogram Procedure(s): MM tomosynthesis screening BI Accession Number(s): [id number] cc: Yecenia Hood EXAMINATION: MM SCREENING DIGITAL [...] by: Rachael Rowland DO 09/29/2024 04:[address] [facility] Dictated By: Rachael Rowland DO Signed By: <Electronically signed by Rachael Rowland DO in OV> 09/29/24 1632 DD/ 1410 TD/TT: 09/23/24 1420 Outreach Team Member: Procedure Note Donotuseinterpreter, Image - 09/29/2024 [facility] [address] [place], [place] [address] Mammography Report Signed Patient: Yandy Nunez#: [id number] : 1Acct:[id number] Age/Sex: 74 / FADM Date: 09/23/24 Loc: [facility] Attending Dr: Yecenia Hood MD Ordering Physician: Sherry Hoodults: 1Negative Date of Service: 09/23/24Follow Up: 1 Year From Orig inal Mammogram Procedure(s): MM tomosynthesis screening BI Accession Number(s): [id number] cc: Yecenia Hood EXAMINATION: MM SCREENING DIGITAL [...] by: Rachael Rowland DO 09/29/2024 04:[address] [facility] Dictated By: Rachael Rowland DO Signed By: <Electronically signed by Rachael Rowland DO in OV> 09/29/24 1632 DD/ 1410 TD/TT: 09/23/24 1420 Outreach Team Member: us Yecenia Hood MD IMG BI PROCEDURES Edited Resul t - Final documented in this encounter Visit Diagnoses Not on filedocumented in this encounter Additional Health Concerns Assessment Noted Time PHQ-9 Depression Total Score: 2 02/18/20 24 9:32 AM EDT documented as of this encounter Care Teams Technology Training Associate Relationship Specialty Start Date End Date Yecenia Hood MD [address] [place] [address] PCP - General Family Medicine 06/14/20 documented as of this encounter
--- OUTSIDE RECORDS SUMMARY | 2025-09-03 10:19 | XMS_ITS | Encounter Summary ---
Author Organization [employer] Address [address] [place] [address] 7t [place] [address] Care Team Providers Care Seam Closer Name Role Phone Yecenia Hood MD Primary Care Provider [phone] Encounter Details Date Type Department Care Team ([facility] Contact Info) Description 06/20/2023 Orders Only [address] [address] Provider, MD Vadim Social History Tobacco Use [...] Department Care Team (Late Contact Info) Description 09/07/2025 1:00 PM EST Medication Management [address] [address] Rajendra Lemus, PharmD [address] [place] [address] 11/17/2025 10:15 AM EST Office Visit [address] [address] Yecenia Hood MD [address] [place] [address] documented as of this encounter Procedures Procedure Name Priority Date/Time Associated Diagnosis Comments COLONOSCOPY Routine 07/24/2021 documented in this encounter Results * Colonoscopy (07/24/2021) us Historical Provider HEALTH MAINTENANCE Final Result documented in this encounter Visit Diagnoses Not on filedocumented in this encounter Additional Health Concerns Assessment Noted Time PHQ-9 Depression Total Score: 5 05/21/20 23 9:45 AM EDT documented as of this encounter Care Teams Seam Closer Relationship Specialty Start Date End Date Yecenia Hood MD [address] [place] [address] PCP - General Family Medicine 06/14/20 documented as of this encounter
--- OUTSIDE RECORDS SUMMARY | 2025-09-03 10:19 | XMS_ITS | Encounter Summary ---
Author Organization [employer] Address [address] [place] [address] 7t [place] [address] Care Team Providers Care Commissioning Editor Name Role Phone Yecenia Hood MD Primary Care Provider [phone] Reason for Visit * Reason Comments Med Refill Encounter Details Date Type Department Care Team ([facility] Contact Info) Description 05/08/2023 Refill [facility] CHC MED & PEDS [address] [place] [address] Faizan yT FNP Social History Tobacco Use Types Packs/Day [...] Upcoming Encounters Date Type Department Care Team ([facility] Contact Info) Description 09/07/2025 1:00 PM EST Medication Management [facility] MEDICINE [address] [place] [phone] Rajendra Lemus, PharmD [address] [place] [address] 11/17/2025 10:15 AM EST Office Visit [facility] MEDICINE [address] [place] [phone] Yecenia Hood MD [address] [place] [address] [phone] documented as of this encounter Visit Diagnoses Not on filedocumented in this encounter Additional Health Concerns Assessment Noted Time PHQ-9 Depression Total Score: 5 02/14/20 23 10:48 AM EDT documented as of this encounter Care Teams Commissioning Editor Relationship Specialty Start Date End Date Yecenia Hood MD [address] [place] [address] PCP - General Family Medicine 06/14/20 documented as of this encounter
--- OUTSIDE RECORDS SUMMARY | 2025-09-03 10:19 | XMS_ITS | Encounter Summary ---
Author Organization [employer] Address [address] [facility] 7t [place] [address] Care Team Providers Care Business Management Manager Name Role Phone Yecenia Hood MD Primary Care Provider [phone] Encounter Details Date Type Department Care Team (Late Contact Info) Description 11/21/2022 Orders Only [facility] CHC MED & PEDS [address] [place] [address] Nava Khan LPN Social History Tobacco Use [...] Description 09/07/2025 1:00 PM EST Medication Management [address] [address] Rajendra Lemus, PharmD [address] [place] [address] 11/17/2025 10:15 AM EST Office Visit [facility] MEDICINE [address] [place] [address] Yecenia Hood MD [address] [place] [address] documented as of this encounter Visit Diagnoses Not on filedocumented in this encounter Care Teams Business Management Manager Relationship Specialty Start Date End Date Yecenia Hood MD [address] [place] [address] PCP - General Family Medicine 06/14/20 documented as of this encounter
--- OUTSIDE RECORDS SUMMARY | 2025-09-03 10:19 | XMS_ITS | Encounter Summary ---
Author Organization [employer] Address [address] [facility] 7t [place] [address] Care Team Providers Care Carbon Brusher Assembler Name Role Phone Yecenia Hood MD Primary Care Provider [phone] Encounter Details Date Type Department Care Team (Late Contact Info) Description 10/05/2022 Orders Only [facility] [address] [place] [address] Emma Cazares LPN Social History Tobacco Use [...] Description 09/07/2025 1:00 PM EST Medication Management [facility] MEDICINE [address] [place] [phone] Rajendra Lemus, PharmD [address] [place] [address] 11/17/2025 10:15 AM EST Office Visit [facility] MEDICINE [address] [place] [address] Yecenia Hood MD [address] [place] [phone] documented as of this encounter Visit Diagnoses Not on filedocumented in this encounter Care Teams Carbon Brusher Assembler Relationship Specialty Start Date End Date Yecenia Hood MD [address] [place] [address] PCP - General Family Medicine 06/14/20 documented as of this encounter
--- OUTSIDE RECORDS SUMMARY | 2025-09-03 10:19 | XMS_ITS | Encounter Summary ---
Author Organization [employer] Address [address] [facility] 7t [place] [address] Care Team Providers Care Macroeconomics Professor Name Role Phone Yecenia Hood MD Primary Care Provider [phone] Encounter Details Date Type Department Care Team (Late st Contact Info) Description 04/22/2025 Orders Only [facility] MEDICINE [address] [place] [address] Yecenia Hood MD [address] [place] [address] Social History Tobacco Use Types Packs/Day Years [...] Description 09/07/2025 1:00 PM EST Medication Management [facility] MEDICINE [address] [place] [address] Rajendra Lemus, PharmD [address] [place] [address] 11/17/2025 10:15 AM EST Office Visit [address] [address] Yecenia Hood MD [address] [place] [address] documented as of this encounter Visit Diagnoses Not on filedocumented in this encounter Additional Health Concerns Assessment Noted Time PHQ-9 Depression Total Score: 2 02/18/20 24 9:32 AM EDT documented as of this encounter Care Teams Macroeconomics Professor Relationship Specialty Start Date End Date Yecenia Hood MD [address] [place] [address] PCP - General Family Medicine 06/14/20 documented as of this encounter
--- OUTSIDE RECORDS SUMMARY | 2025-09-03 10:19 | XMS_ITS | Encounter Summary ---
Author Organization [employer] Address [address] [facility] 7t [place] [address] Care Team Providers Care Copyright Expert Name Role Phone Yecenia Hood MD Primary Care Provider [phone] Encounter Details Date Type Department Care Team (Late Contact Info) Description 10/23/2022 Orders Only [facility] CHC MED & PEDS [address] [place] [address] Nava Khan LPN Social History Tobacco Use [...] Description 09/07/2025 1:00 PM EST Medication Management [address] [address] Rajendra Lemus, PharmD [address] [place] [address] 11/17/2025 10:15 AM EST Office Visit [facility] MEDICINE [address] [place] [address] Yecenia Hood MD [address] [place] [address] documented as of this encounter Visit Diagnoses Not on filedocumented in this encounter Care Teams Copyright Expert Relationship Specialty Start Date End Date Yecenia Hood MD [address] [place] [address] PCP - General Family Medicine 06/14/20 documented as of this encounter
--- OUTSIDE RECORDS SUMMARY | 2025-09-03 10:19 | XMS_ITS | Encounter Summary ---
Author Organization [employer] Address [address] [place] [address] 7t [place] [address] Care Team Providers Care Double End Tenoner Setter Name Role Phone Yecenia Hood MD Primary Care Provider [phone] Encounter Details Date Type Department Care Team (Latest Contact Info) Description 04/13/2022 Abstract [facility] CONVERSIONS Dental, Provider, DDS Social History Tobacco [...] Upcoming Encounters Date Type Department Care Team ( st Contact Info) Description 09/07/2025 1:00 PM EST Medication Management [facility] MEDICINE [address] [place] [address] Rajendra Lemus, PharmD [address] [place] [address] 11/17/2025 10:15 AM EST Office Visit [facility] MEDICINE [address] [place] [address] Yecenia Hood MD [address] [place] [address] documented as of this encounter Visit Diagnoses Not on filedocumented in this encounter Care Teams Double End Tenoner Setter Relationship Specialty Start Date End Date Yecenia Hood MD [address] [place] [address] PCP - General Family Medicine 06/14/20 documented as of this encounter
--- OUTSIDE RECORDS SUMMARY | 2025-09-03 10:19 | XMS_ITS | Encounter Summary ---
Author Organization [employer] Address [address] [facility] 7t [place] [address] Care Team Providers Care Leather Lacer Name Role Phone Yecenia Hood MD Primary Care Provider [phone] Reason for Referral * Consultation (Routine) - Authorized Specialty Diagnoses / Procedures Referred By Colleen t Referred To Contact Pharmacy Diagnoses Primary hypertension Yecenia Hood MD [address] [place] [address] Phone: tel: fax: Referral ID Status Reason Start Date Expiration Date Visits Requested Visits Authorized [id number] Authorized Consult and Treat 08/14/2025 08/14/2026 6 6 Encounter Details Date Type Department Care Team (Late st Contact Info) Description 08/14/2025 Orders Only [facility] MEDICINE [address] [place] [address] Yecenia Hood MD [address] [place], [place] [phone] Primary hypertension (Primary Dx) Social History Tobacco Use Types Packs/Day Years [...] Description 09/07/2025 1:00 PM EST Medication Management [facility] MEDICINE [address] [place] [address] Rajendra Lemus PharmD [address] [place] [address] 11/17/2025 10:15 AM EST Office Visit [facility] MEDICINE [address] [place] [address] Yecenia Hood MD [address] [place] [address] Scheduled Referrals Name Type Priority Associated Diagnoses Orde r Schedule Referral to Pharmacy CDTM Outpatient Referral Routine Primary hypertension Ordered: 08/14/2025 documented as of this encounter Visit Diagnoses Diagnosis Primary hypertension- Primary Unspecified essential hypertension documented in this encounter Additional Health Concerns Assessment Noted Time PHQ-9 Depression Total Score: 13 025 3:01 PM EDT documented as of this encounter Care Teams Leather Lacer Relationship Specialty Start Date End Date Yecenia Hood MD [address] [place] [address] PCP - General Family Medicine 06/14/20 documented as of this encounter
--- OUTSIDE RECORDS SUMMARY | 2025-09-03 10:19 | XMS_ITS | Encounter Summary ---
Author Organization [employer] Address [address] [facility] 7t [place] [address] Care Team Providers Care Cigarette Inspector Name Role Phone Yecenia Hood MD Primary Care Provider [phone] Encounter Details Date Type Department Care Team (Late Contact Info) Description 01/01/2023 Orders Only [facility] CHC MED & PEDS [address] [place] [address] Nvaa Khan LPN Social History Tobacco Use Types [...] Description 09/07/2025 1:00 PM EST Medication Management [address] [address] Rajendra Lemus, RosaD [address] [place] [address] 11/17/2025 10:15 AM EST Office Visit [address] [address] Yecenia Hood MD [address] [place] [address] documented as of this encounter Visit Diagnoses Not on filedocumented in this encounter Additional Health Concerns Assessment Noted Time PHQ-9 Depression Total Score: 5 12/07/19 23 10:20 AM EST documented as of this encounter Care Teams Cigarette Inspector Relationship Specialty Start Date End Date Yecenia Hood MD [address] [place] [address] PCP - General Family Medicine 06/14/20 documented as of this encounter
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
== END 2025-09-03 09:09 | disposition home or self-care (01) ==
LOC: HO.HOS 08:48
PROVIDERS: PCP General Practice; Visit Provider Physician Assistant
DX: M17.0 Bilateral primary osteoarthritis of knee (principal)
CPT/HCPCS: 20610; 99213

== ENCOUNTER → 2025-09-03 08:47 | Outpatient (BNVA) | payer OTHER, SELFPAY | PROVIDERS: PCP General Practice; Visit Provider Physician Assistant | DX: M17.0 Bilateral primary osteoarthritis of knee (principal) | CPT/HCPCS: 20610; 99212; J0665; J1100; J2003 ==